=== PATIENT | male | born 1955 | race Caucasian/White ===

== ENCOUNTER → 2017-04-22 | Outpatient (CLI) | payer MEDICAID ==
--- NOTE | 2017-04-22 12:35 | RADIOLOGY REPORT (SQ) ---
EXAM DESCRIPTION: U/S RETROPERITON (RENAL/AORTA) COMPLETED DATE/TIME: 04/22/2017 10:12 am REASON FOR STUDY: RENAL COLIC (N23) N23 UNSPECIFIED RENAL COLIC COMPARISON: None. TECHNIQUE: Dynamic and static grayscale images acquired of the kidneys and bladder and recorded on P ACS. Additional selected color Doppler and spectral images recorded. LIMITATIONS: None. FINDINGS: RIGHT KIDNEY: Normal size, 11.9 cm. Normal echogenicity. No solid or suspicious masses. T here is a 3 cm cyst. No hydronephrosis. No calcifications. LEFT KIDNEY: Normal size, 12.6 cm. Normal echogenicity. No solid or suspicious masses. No hydronephr osis. No calcifications. BLADDER: The urinary bladder shows nodular protrusion of the prostate gland into the base. The prost ate gland is enlarged. Ureteral jets were seen. OTHER FINDINGS: No other significant finding. IMPRESSION: 1. Normal kidneys. 2. There is nodular protrusion of the prostate gland into the base of the bladder. The prostate gla nd is enlarged. TECHNICAL DOCUMENTATION: JOB ID: [id number]- All Rights Reserved
== END ==
LOC: RAD 09:44
PROVIDERS: ATTEND Internal Medicine
DX: N23 Unspecified renal colic (principal)
CPT/HCPCS: 76770

== ENCOUNTER → 2017-06-18 | Outpatient (CLI) | payer MEDICAID ==
--- NOTE | 2017-06-18 13:04 | RADIOLOGY REPORT (SQ) ---
EXAM DESCRIPTION: RIBS LEFT W/PA CHEST COMPLETED DATE/TIME: 06/18/2017 12:52 pm REASON FOR STUDY: CHEST PAIN, UNSPECIFIED R07.9 CHEST PAIN, UNSPECIFIED COMPARISON: CT chest 03/02/2010, 02/12/2016 Chest films 07/04/2013, 10/20/2008 TECHNIQUE: Frontal view of the chest and additional views of the left ribs acquired. NUMBER OF VIEWS: PA chest, left rib detail five views LIMITATIONS: None. FINDINGS: FRONTAL CXR: Bibasilar bandlike atelectasis. No fluffy alveolar infiltrates worrisome for edema or pneumonia. No pleural effusion. No pneumothor ax. Mild cardiomegaly. RIBS: Chronic appearing left lateral 8th rib fracture. No acute displaced fractures are identified OTHER: No other significant finding. IMPRESSION: Bibasilar airspace disease likely atelectasis Chronic appearing left lateral 8th rib fracture No acute changes COMMENT: SITE OF TRAUMA/COMPLAINT MARKED/STAMP COMPLETED: Yes TECHNICAL DOCUMENTATION: JOB ID: [id number] [employer]- All Rights Reserved
== END ==
LOC: OD 11:34
PROVIDERS: ATTEND Internal Medicine
DX: R07.9 Chest pain, unspecified (principal); I51.7 Cardiomegaly

== ENCOUNTER 2017-08-11 01:53 | Inpatient (IN) | payer MEDICAID ==
[2017-08-11] MEDS ORDERED: FENTANYL CITRATE INJ/PF 100 MCG/2 ML AMPUL IV ONE (02:12)
--- NOTE | 2017-08-11 02:14 | ER Document Report ---
ED Fall - General Mode of Arrival: Medic Information source: Patient TRAVEL OUTSIDE OF THE [place] IN LAST 30 DAYS: No <TIARA GILLIAM - Last Filed: 08/11/17 06:29> <AIDAN HOLBROOK - Last Filed: 08/11/17 07:20> - General Chief Complaint: Hip Pain Stated Complaint: FALL/HIP PAIN Time Seen by Provider: 08/11/17 01:58 Notes: Patient is a 62 year old male with a history of diabetes, and depression presents to the emergency department from [facility] complaining of left hip and shoulder pain secondary to a mechanical fall. EMS states [facility] mopped the floors when the patient slipped on his way to the bathroom. EMS reports the fall was witnessed and the patient fell on his left shoulder and hip without hitting his head. Patient states his hip pain is a 10/ 10. EMS gave the patient 100 mg of Fentanyl prior to arrival to the emergency department. (TIARA GILLIAM) - Related data Allergies/Adverse Reactions: moxifloxacin HCl [From Avelox] Allergy (Verified 06/19/11 14:14) Past Medical History - General Information source: Patient - Social History Smoking Status: Current Every Day Smoker Cigarette use (# per day): Yes - 1/2 pack a day Family History: None - Past Medical History Cardiac Medical History: Reports: Hx Hypertension Endocrine Medical History: Reports: Hx Diabetes Mellitus Type 2 Psychiatric Medical History: Reports: Hx Bipolar Disorder, Hx Depression, Hx Schizophrenia - Immunizations Hx Diphtheria, Pertussis, Tetanus Vaccination: Yes Hx Pneumococcal Vaccination: 07/07/09 <TIARA GILLIAM - Last Filed: 08/11/17 06:29> Review of Systems - Review of Systems Constitutional: No symptoms reported EENT: No symptoms reported Cardiovascular: No symptoms reported Respiratory: No symptoms reported Gastrointestinal: No symptoms reported Genitourinary: No symptoms reported Male Genitourinary: No symptoms reported Musculoskeletal: See HPI Skin: No symptoms reported Hematologic/Lymphatic: No symptoms reported Neurological/Psychological: No symptoms reported -: Yes All other systems reviewed and negative <TIARA IGLLIAM - Last Filed: 08/11/17 06:29> Physical Exam <TIARA GILLIAM - Last Filed: 08/11/17 06:29> <AIDAN HOLBROOK - Last Filed: 08/11/17 07:20> - Vital signs Vitals: Temp Pulse Resp BP Pulse Ox 97.5 F 68 22 H 143/67 H 90 L 08/11/17 02:03 08/11/17 02:03 08/11/17 02:03 08/11/17 02:03 08/11/17 02:03 - Notes Notes: GENERAL: Alert, interacts well. No acute distress. HEAD: Normocephalic, atraumatic. EYES: Pupils equal, round, and reactive to light. Extraocular movements intact. ENT: Oral mucosa moist, tongue midline. NECK: Full range of motion. Supple. Trachea midline. LUNGS: Clear to auscultation bilaterally, no wheezes, rales, or rhonchi. No respiratory distress. HEART: Regular rate and rhythm. No murmurs, gallops, or rubs. ABDOMEN: Soft, non-tender. Non-distended. Bowel sounds present in all 4 quadrants. Easily reducible umbilical hernia. EXTREMITIES: Decreased sensations over left herald's patch. Superficial abrasion on left elbow, no deformities. Normal sensations of the BLE. Diffusely tender to the left femur, worsened on the proximal aspect. Radial and dorsalis pedis pulses 2/4 bilaterally. NEUROLOGICAL: Alert and oriented x3. Normal speech. PSYCH: Normal affect, normal mood. SKIN: Warm, dry, normal turgor. (TIARA GILLIAM) Course - Laboratory Result Diagrams: 08/11/17 01:40 08/11/17 01:40 - Consults VERONIQUE Aguilar Time consulted: 03:43 - VERONIQUE Aguilar reccommends the patient's PCP, Dr. Wilson , admits patinet due to the patient being diabetic. Dr. Winchester Time consulted: 03:45 - Dr. Winchester accepts patient on behalf of Dr. Wilson <TIARA GILLIAM - Last Filed: 08/11/17 06:29> - Laboratory Result Diagrams: 08/11/17 01:40 08/11/17 01:40 <AIDAN HOLBROOK - Last Filed: 08/11/17 07:20> - Re-evaluation Re-evalutation: 08/11/17 03:46 X-rays reveal displaced spiral left femur fracture extending through the lesser trochanter, also reveals a mildly displaced mildly comminuted left glenoid fracture. Chest x-ray does not show any broken ribs. 08/11/17 03:47 It does show mild cardiomegaly, mild bibasilar atelectasis and small left pleural effusion. CBC shows slight leukocytosis 11.1, coags normal, CMP shows elevated glucose of 171 consistent with his history of diabetes. Initial EKG showed slight ST segment elevations in the anterior leads without any reciprocal changes, it is actually more consistent with early repolarization consistent with LVH. Repeat EKG is improved. Patient is having no cardiac symptoms, no chest pain. Discussed case with Ms. Tran PIPER who works with orthopedic surgery, states that given his comorbidities she would prefer he was admitted through his primary care physician. I spoke with Dr. Winchester who is covering for Dr. Pena. He accepts the patient to Dr. Pena service. Patient will be evaluated for surgery later today. (AIDAN HOLBROOK) - Vital Signs Vital signs: Temp Pulse Resp BP Pulse Ox 97.5 F 63 16 146/67 H 92 08/11/17 02:03 08/11/17 05:32 08/11/17 05:32 08/11/17 05:32 08/11/17 05:32 - Laboratory Laboratory results interpreted by me: 08/11/17 08/11/17 01:40 01:40 WBC 11.1 H Glucose 171 H AST 13 L Total Protein 5.6 L - EKG Interpretation by Me Additional EKG results interpreted by me: 08/11/17 03:49 Initial EKG shows sinus rhythm at a rate of 65, normal axis, normal intervals, no ST segment depressions, isolated T-wave inversions in lead III, there are ST segment elevations noted in V3 through V6, this is more consistent with early repolarization with J-point elevation than a STEMI. There are no reciprocal changes. Per my interpretation. Repeat EKG shows sinus rhythm at a rate of 74, minimal ST segment elevation remains in V3 and V4, it has resolved in V5 and V6, no T-wave inversions, no reciprocal changes, left ventricular hypertrophy is noted, normal axis and normal intervals per my interpretation. (AIDAN HOLBROOK) Discharge <TIARA GILLIAM - Last Filed: 08/11/17 06:29> - Discharge Admitting Provider: [facility] Admitted: Medical Floor <AIDAN HOLBROOK - Last Filed: 08/11/17 07:20> - Discharge Clinical Impression: Left femoral shaft fracture Qualifiers: Encounter type: initial encounter Fracture type: closed Fracture morphology: spiral Fracture alignment: displaced Qualified Code(s): S72.342A - Displaced spiral fracture of shaft of left femur, initial encounter for closed fracture Closed fracture of glenoid cavity of left scapula Qualifiers: Encounter type: initial encounter Fracture alignment: displaced Qualified Code( s): S42.142A - Displaced fracture of glenoid cavity of scapula, left shoulder, initial encounter for closed fracture Hypertension Qualifiers: Hypertension type: essential hypertension Qualified Code(s): I10 - Essential ( primary) hypertension Obesity Qualifiers: Obesity type: due to excess calories Obesity classification: adult class 3 ( BMI >= 40) Serious obesity comorbidity presence: with serious comorbidity Body mass index: BMI 40.0-44.9 Qualified Code(s): E66.01 - Morbid (severe) obesity due to excess calories Condition: Stable Disposition: ADMITTED INPATIENT Scribe Attestation: 08/11/17 07:20 I personally performed the services described in the documentation, reviewed and edited the documentation which was dictated to the scribe in my presence, and it accurately records my words and actions. (AIDAN HOLBROOK) Scribe Documentation - Scribe Written by Gordonibe:: Ricardo Hurley, 08/11/2017 02:15 acting as scribe for :: Gila <TIARA GILLIAM - Last Filed: 08/11/17 06:29>
[2017-08-11 02:16] LABS: ABSOLUTE EOSINOPHILS # (AUTO) 0.2 10^3/uL (0.0-0.6); ABSOLUTE LYMPHOCYTES (AUTO) 4.1 10^3/uL (0.5-4.7); ABSOLUTE MONOCYTES (AUTO) 0.9 10^3/uL (0.1-1.4); ABSOLUTE NEUT (AUTO) 5.8 10^3/uL (1.7-8.2); BASOPHILS % (AUTO) 0.3 % (0-2); EOSINOPHILS % (AUTO) 1.9 % (0-6); HEMOGLOBIN 14.9 g/dL (13.5-17.0); LYMPHOCYTES % (AUTO) 36.9 % (13-45); MEAN CORPUSCULAR HEMOGLOBIN 29.9 pg (27.0-33.4); MEAN CORPUSCULAR HGB CONC 33.2 g/dL (32.0-36.0); MEAN CORPUSCULAR VOLUME 90 fl (80-97); MONOCYTES % (AUTO) 8.2 % (3-13); PLATELET COUNT 245 10^3/uL (150-450); RED CELL DISTRIBUTION WIDTH 13.9 % (11.5-14.0); SEGMENTED NEUTROPHILS % (AUTO) 52.7 % (42-78); TOTAL CELLS COUNTED % (AUTO) 100 %; WHITE BLOOD COUNT 11.1 10^3/uL (4.0-10.5)
[2017-08-11 02:30] LABS: ALANINE AMINOTRANSFERASE 34 U/L (21-72); ALBUMIN 4.1 g/dL (3.5-5.0); ALKALINE PHOSPHATASE 78 U/L (38-126); ANION GAP 13 (5-19); ASPARTATE AMINO TRANSFERASE 13 U/L (17-59); BILIRUBIN,DIRECT 0.4 mg/dL (0.0-0.4); BILIRUBIN,TOTAL 0.5 mg/dL (0.2-1.3); BLOOD UREA NITROGEN 16 mg/dL (7-20); CALCIUM 9.1 mg/dL (8.4-10.2); CARBON DIOXIDE 26 mmol/L (22-30); CHLORIDE 103 mmol/L (98-107); GLUCOSE 171 mg/dL (75-110); POTASSIUM 4.5 mmol/L (3.6-5.0); SODIUM 142.2 mmol/L (137-145); TOTAL PROTEIN 5.6 g/dL (6.3-8.2)
[2017-08-11 02:32] LABS: INTERNATIONAL RATION (INR) 0.89; PROTHROMBIN TIME 12.7 SEC (11.4-15.4)
--- NOTE | 2017-08-11 03:23 | RADIOLOGY REPORT (SQ) ---
EXAM DESCRIPTION: CHEST SINGLE VIEW COMPLETED DATE/TIME: 08/11/2017 3:12 am REASON FOR STUDY: fall, L hip pain, L shoulder pain COMPARISON: Chest x-ray 07/04/2013 EXAM PARAMETERS: NUMBER OF VIEWS: One view. TECHNIQUE: Single frontal radiographic view of the chest acquired. RADIATION DOSE: NA LIMITATIONS: None. FINDINGS: LUNGS AND PLEURA: Mild bibasilar atelectasis. There is blunting of the left costophrenic angle suggestive of a small pleural effusion. No pneumothorax. MEDIASTINUM AND HILAR STRUCTURES: No masses. Contour normal. HEART AND VASCULAR STRUCTURES: The heart is mildly enlarged. No overt vascular congestion. BONES: Degenerative changes in the spine. HARDWARE: None in the chest. IMPRESSION: Mild cardiomegaly. Mild bibasilar atelectasis. Small left pleural effusion. TECHNICAL DOCUMENTATION: JOB ID: [id number] OH-[id number] 2010 [employer]- All Rights Reserved
--- NOTE | 2017-08-11 03:30 | RADIOLOGY REPORT (SQ) ---
EXAM DESCRIPTION: HIP LEFT AP/LATERAL; FEMUR LEFT COMPLETED DATE/TIME: 08/11/2017 3:12 am REASON FOR STUDY: fall, L hip pain, L shoulder pain; hip and femur fracture. The patient fell this morning. COMPARISON: None. NUMBER OF VIEWS: Four views. TECHNIQUE: AP pelvis and frog-leg view of the left hip. Two views of the left femur. LIMITATIONS: None. FINDINGS: There is a displaced spiral fracture at the proximal left femoral shaft extending through the lesser trochanter. No acute fracture is seen at the pelvis or the visualized right hip. IMPRESSION: Displaced, spiral fracture at the proximal left femur extending through the lesser troch anter. TECHNICAL DOCUMENTATION: JOB ID: [id number] OH-[id number] 2010 [employer]- All Rights Reserved
--- NOTE | 2017-08-11 03:30 | RADIOLOGY REPORT (SQ) ---
EXAM DESCRIPTION: HIP LEFT AP/LATERAL; FEMUR LEFT COMPLETED DATE/TIME: 08/11/2017 3:12 am REASON FOR STUDY: fall, L hip pain, L shoulder pain; hip and femur fracture. The patient fell this morning. COMPARISON: None. NUMBER OF VIEWS: Four views. TECHNIQUE: AP pelvis and frog-leg view of the left hip. Two views of the left femur. LIMITATIONS: None. FINDINGS: There is a displaced spiral fracture at the proximal left femoral shaft extending through the lesser trochanter. No acute fracture is seen at the pelvis or the visualized right hip. IMPRESSION: Displaced, spiral fracture at the proximal left femur extending through the lesser troch anter. TECHNICAL DOCUMENTATION: JOB ID: [id number] OH-[id number] 2010 [employer]- All Rights Reserved
[2017-08-11] MEDS ORDERED: HYDROMORPHONE HCL INJ/PF 2 MG/ML AMPULE IV ONE ×2 (03:35→05:09)
--- NOTE | 2017-08-11 03:35 | RADIOLOGY REPORT (SQ) ---
EXAM DESCRIPTION: SHOULDER LEFT 2 OR MORE VIEWS COMPLETED DATE/TIME: 08/11/2017 3:12 am REASON FOR STUDY: fall, L hip pain, L shoulder pain COMPARISON: None. NUMBER OF VIEWS: Two views. TECHNIQUE: Internal and external rotation images acquired of the left shoulder. The patient refused Y-view of the shoulder. LIMITATIONS: None. FINDINGS: MINERALIZATION: Normal. BONES: There is a mildly comminuted, mildly displaced, intra-articular fracture at the left glenoid. Degenerative changes at the acromioclavicular joint. No acute fracture or dislocation is seen at th e proximal left humerus. JOINTS: No dislocation. VISUALIZED LUNGS AND RIBS: No pneumothorax. No displaced rib fracture. SOFT TISSUES: No radiopaque foreign body. IMPRESSION: Mildly displaced intra-articular fracture at the left glenoid. TECHNICAL DOCUMENTATION: JOB ID: [id number] OH-[id number] 2010 [employer]- All Rights Reserved
[2017-08-11] MEDS ORDERED: DEXTROSE 50%-WATER 25 GM/50 ML DISP.SYRIN IV PRN ×4 (04:27→04:31)
[2017-08-11] MEDS ORDERED: ONDANSETRON HCL INJ/PF 4 MG/2 ML SDV IV PRN (04:27)
[2017-08-11] MEDS ORDERED: DEXTROSE 40% GEL 15 GM TUBE PO PRN ×4 (04:27→04:31)
[2017-08-11] MEDS ORDERED: GLUCAGON,HUMAN RECOMB 1 MG INJ SUBCUT PRN (04:27)
[2017-08-11] MEDS ORDERED: ACETAMINOPHEN 325 MG TABLET PO PRN (04:27)
[2017-08-11] MEDS ORDERED: GLUCAGON,HUMAN RECOMB 1 MG INJ IM PRN (04:31)
--- NOTE | 2017-08-11 06:28 | EKG REPORT ---
SEVERITY:- OTHERWISE NORMAL ECG - SINUS RHYTHM MINIMAL ST ELEVATION, ANTERIOR LEADS : Confirmed by: Jourdan White MD 11-Aug-2017 06:27:45
--- NOTE | 2017-08-11 06:28 | EKG REPORT ---
SEVERITY:- NORMAL ECG - SINUS RHYTHM : Confirmed by: Jourdan White MD 11-Aug-2017 06:27:34
--- NOTE | 2017-08-11 06:29 | PDOC CONSULTATION ---
Consultation Consult Date: 08/11/17 Consult reason:: Left hip fracture. Left shoulder fracture History of Present Illness Admission Date/PCP: 08/11/17 04:16 PEMA ARMSTRONG MD History of Present Illness: FLORY DUNN JR is a 62 year old male resident of the [facility] who fell on a wet floor and sustained a left shoulder injury and left hip injury. Is brought to the emergency room and a left glenoid fracture as well as a left subtrochanteric femur fracture were identified. Orthopedics is consulted for fracture management. Past Medical History Cardiac Medical History: Reports: Hypertension, Other - Cardiomegaly Endocrine Medical History: Reports: Diabetes Mellitus Type 2 Psychiatric Medical History: Reports: Bipolar Disorder, Depression Past Surgical History Past Surgical History: Reports: None Social History Information Source: Patient, [facility] Records Lives with: [facility] Smoking Status: Current Every Day Smoker Hx Recreational Drug Use: No Hx Prescription Drug Abuse: No Family History Family History: None Parental Family History Reviewed: No Children Family History Reviewed: No Sibling(s) Family History Reviewed.: No Medication/Allergy Home Medications: Glipizide 06/19/11 Olmesartan Medoxomil [Benicar] 0 mg PO 06/19/11 Pioglitazone HCl [Actos] 0 mg PO 06/19/11 Sitagliptin Phosphate [Januvia] 0 mg PO 06/19/11 Prednisone [Deltasone 20 mg Tablet] 3 tab PO DAILY 5 Days tablet 02/12/16 Allergies/Adverse Reactions: moxifloxacin HCl [From Avelox] Allergy (Verified 06/19/11 14:14) Review of Systems All systems: as per H Physical Exam Vital Signs: Temp Pulse Resp BP Pulse Ox 36.4 C 63 16 146/67 H 92 08/11/17 02:03 08/11/17 05:32 08/11/17 05:32 08/11/17 05:32 08/11/17 05:32 Physical Exam: Overweight middle-aged white male lying in [facility]. Patient's alert oriented and appropriate. General appearance: PRESENT: no acute distress, obese Head exam: PRESENT: normocephalic Respiratory exam: PRESENT: unlabored Cardiovascular exam: PRESENT: RRR Pulses: PRESENT: +1 pedal pulses bilateral Vascular exam: PRESENT: normal capillary refill GI/Abdominal exam: PRESENT: soft Rectal exam: PRESENT: deferred Extremities exam: PRESENT: other - Left shoulder tender to palpation. Limited active range of motion secondary to pain. There is no skin abnormalities. Left lower extremity is externally rotated such that the left ankle underlies the right knee. Distal neurovascular examination is intact. Neurological exam: PRESENT: alert, awake, oriented to person, oriented to place , oriented to time, oriented to situation. ABSENT: motor sensory deficit Psychiatric exam: PRESENT: appropriate affect, normal mood. ABSENT: homicidal ideation, suicidal ideation Skin exam: PRESENT: dry, intact, warm. ABSENT: cyanosis, rash Results Impressions: Chest X-Ray 08/11/17 02:07 IMPRESSION: Mild cardiomegaly. Mild bibasilar atelectasis. Small left pleural effusion. Hip X-Ray 08/11/17 02:07 IMPRESSION: Displaced, spiral fracture at the proximal left femur extending through the lesser trochanter. Shoulder X-Ray 08/11/17 02:07 IMPRESSION: Mildly displaced intra-articular fracture at the left glenoid. Femur X-Ray 08/11/17 02:55 IMPRESSION: Displaced, spiral fracture at the proximal left femur extending through the lesser trochanter. Status: Imported from PACS Assessment & Plan - Diagnosis (1) Cardiomegaly Is this a current diagnosis for this admission?: Yes Plan: Cardiology consult requested (2) Closed fracture of glenoid cavity of left scapula Qualifiers: Encounter type: initial encounter Fracture alignment: displaced Qualified Code(s): S42.142A - Displaced fracture of glenoid cavity of scapula, left shoulder, initial encounter for closed fracture Is this a current diagnosis for this admission?: Yes Plan: This fracture can be treated nonoperatively but will interfere with the patient' s ability to mobilize status post treatment of the femur fracture. (3) Left femoral shaft fracture Qualifiers: Encounter type: initial encounter Fracture type: closed Fracture morphology: spiral Fracture alignment: displaced Qualified Code(s): S72.342A - Displaced spiral fracture of shaft of left femur, initial encounter for closed fracture Is this a current diagnosis for this admission?: Yes Plan: Plan for an open reduction internal fixation left femur fracture pending medical clearance, cardiac clearance, and or availability. - Time Time Spent: 50 to 70 Minutes Anticipated discharge: Other Within: Other
[2017-08-11] MEDS ORDERED: HEPARIN SOD (PORCINE) 5,000 UNIT/ML 1 ML SYRINGE ONE (07:00)
[2017-08-11] MEDS: NORMAL SALINE 1000 ML 1,000 ML IV PRN ×2 (07:47→22:51)
[2017-08-11] MEDS: HEPARIN SOD (PORCINE) 5,000 UNIT/ML 1 ML SYRINGE SUBCUT SCH ×3 (07:49→22:50)
[2017-08-11] MEDS: FAMOTIDINE INJ/PF 20 MG/2 ML SDV IV SCH ×2 (09:54→22:51)
[2017-08-11] MEDS: OXYCODONE-ACETAMINOPHEN 5-325 MG TABLET PO PRN ×2 (10:17→20:52)
[2017-08-11] MEDS: DOCUSATE SODIUM 100 MG CAPSULE PO SCH ×2 (10:17→17:54)
--- NOTE | 2017-08-11 12:49 | PDOC CONSULTATION ---
Consultation Consult Date: 08/11/17 Attending physician:: KENN JEAN Consult reason:: Preop cardiovascular evaluation History of Present Illness Admission Date/PCP: 08/11/17 04:16 PEMA ARMSTRONG MD Patient complains of: Left shoulder and left hip pain History of Present Illness: FLORY DUNN JR is a 62 year old male resident who fell on a wet floor and sustained a left shoulder injury and left hip injury. Is brought to the emergency room and a left glenoid fracture as well as a left subtrochanteric femur fracture were identified. Orthopedics is consulted for fracture management. Patient denied any previous cardiac issues. Patient denied any ongoing chest pain or shortness of breath. Twelve-lead EKG reviewed showed sinus rhythm without any acute ST-T wave changes. Patient claims that he is physically inactive however. Past Medical History Cardiac Medical History: Reports: Hypertension, Other - Cardiomegaly Endocrine Medical History: Reports: Diabetes Mellitus Type 2 Psychiatric Medical History: Reports: Bipolar Disorder, Depression Past Surgical History Past Surgical History: Reports: None Social History Information Source: Patient Lives with: [facility] Smoking Status: Current Every Day Smoker Frequency of Alcohol Use: None Hx Recreational Drug Use: No Drugs: None Hx Prescription Drug Abuse: No - Advance Directive Resuscitation Status: Full Code Surrogate healthcare decision maker:: Patient's brother is surrogate decision-maker Family History Family History: Hypertension Parental Family History Reviewed: Yes Children Family History Reviewed: Yes Sibling(s) Family History Reviewed.: Yes Medication/Allergy Home Medications: Aripiprazole [Abilify 5 mg Tablet] 5 mg PO DAILY 08/11/17 Allergies/Adverse Reactions: moxifloxacin HCl [From Avelox] Allergy (Verified 06/19/11 14:14) Review of Systems Review of Systems: Please see history of present illness and past medical history as wall. Constitutional: No fever or chills reported. Head : No recent chronic headaches, recent head injury. Eyes: No recent eye pain, diplopia, redness, discharge, acute visual changes. Ears: No recent chronic ear pain, acute hearing loss, ear discharge. Oral cavity: No recent ulcerations, bleeding, oral cavity discomfort. Neck: No recent acute neck pain reported. Hematologic: No recent easy bruising or bleeding or hematologic malignancy reported. Lymphatic: No recent lymphatic malignancy, chronic lymphadenopathy reported yet Cardiovascular system review: See history of present illness. Respiratory system review: No recent chronic cough, hemoptysis, blood clots in the lungs reported. Mild Shortness of breath on exertion Gastrointestinal system review: Negative for any recent acute or chronic abdominal pain, hematemesis, melena, recent change in bowel habits. Genitourinary system review: No recent acute or chronic hematuria, flank pain, UTI etc. reported. Skin system review: Negative for any recent abnormal bruising, no rash, no pruritus reported. Neurologic: No prior history of strokes, mini strokes, seizure disorder. Psychologic: Patient has a history of mood disorder and currently on medications for that. Musculoskeletal: Minor aches and pains reported. No acute joint swelling reported. Endocrine: No recent polyuria, polydipsia, recent heat or cold intolerance. Physical Exam Vital Signs: Temp Pulse Resp BP Pulse Ox 98.0 F 88 20 151/85 H 92 08/11/17 12:11 08/11/17 12:11 08/11/17 12:11 08/11/17 12:11 08/11/17 12:11 Intake & Output 08/10/17 08/11/17 08/12/17 06:59 06:59 06:59 Weight 108.862 kg Exam: GENERAL: well-nourished and in no acute distress. Alert and oriented x3 HEAD: Atraumatic, normocephalic. EYES: Pupils equal round and reactive to light, extraocular movements intact, sclera anicteric, conjunctiva are normal. ENT: TMs normal, nares patent, oropharynx clear without exudates. Moist mucous membranes. No oral ulcerations or bleeding gums noted NECK: supple without lymphadenopathy. Trachea is central. No cervical or axillary lymphadenopathy noted. Carotids are 2+, JVD WNL LUNGS: Respiration seems nonlabored, no significant accessory muscle action noted. Breath sounds clear to auscultation bilaterally and equal noted. No wheezes rales or rhonchi noted. No significant dullness noted on percussion. CHEST: Palpation of the chest wall shows no significant chest wall tenderness. No other significant abnormalities noted. HEART: [employer], No PSH, 1/6 MELANY aortic area, 1/6 bran systolic murmur mitral area, no rubs, no gallops. ABDOMEN: Soft, no significant tenderness appreciated, normoactive bowel sounds. No guarding, no rebound. No rigidity noted . No masses appreciated. EXTREMITIES: Pedal pulses are 1-2+, no calf tenderness noted. No clubbing or cyanosis.trace to 1+ pedal edema noted NEUROLOGICAL: Focused neurological exam showed no significant neurologic deficit. Normal speech, no focal weakness appreciated, muscle strength not checked in the left upper and lower extremity due to recent fracture.. PSYCH: Normal mood, normal affect. Judgment and insight within normal limits. SKIN: No significant ecchymosis, rash, ulcerations or signs of pruritus noted. MUSCULOSKELETAL EXAM: No significant joint swelling noted. Painful movements of left shoulder and left hip. A full musculoskeletal exam was not performed. Results EKG Comments: Shows sinus rhythm without any sustained tacky or bradycardia arrhythmias. Impressions: Chest X-Ray 08/11/17 02:07 IMPRESSION: Mild cardiomegaly. Mild bibasilar atelectasis. Small left pleural effusion. Hip X-Ray 08/11/17 02:07 IMPRESSION: Displaced, spiral fracture at the proximal left femur extending through the lesser trochanter. Shoulder X-Ray 08/11/17 02:07 IMPRESSION: Mildly displaced intra-articular fracture at the left glenoid. Femur X-Ray 08/11/17 02:55 IMPRESSION: Displaced, spiral fracture at the proximal left femur extending through the lesser trochanter. Assessment & Plan - Diagnosis (1) Preoperative cardiovascular examination Is this a current diagnosis for this admission?: Yes (2) Cardiomegaly Is this a current diagnosis for this admission?: Yes (3) Closed fracture of glenoid cavity of left scapula Qualifiers: Encounter type: initial encounter Fracture alignment: displaced Qualified Code(s): S42.142A - Displaced fracture of glenoid cavity of scapula, left shoulder, initial encounter for closed fracture Is this a current diagnosis for this admission?: Yes (4) Hypertension Qualifiers: Hypertension type: essential hypertension Qualified Code(s): I10 - Essential (primary) hypertension Is this a current diagnosis for this admission?: Yes (5) Left femoral shaft fracture Qualifiers: Encounter type: initial encounter Fracture type: closed Fracture morphology: spiral Fracture alignment: displaced Qualified Code(s): S72.342A - Displaced spiral fracture of shaft of left femur, initial encounter for closed fracture Is this a current diagnosis for this admission?: Yes (6) Obesity Qualifiers: Obesity type: due to excess calories Obesity classification: adult class 3 (BMI >= 40) Serious obesity comorbidity presence: with serious comorbidity Body mass index: BMI 40.0-44.9 Qualified Code(s): E66.01 - Morbid (severe) obesity due to excess calories; Z68.41 - Body mass index (BMI) 40.0-44.9, adult ; Z68.41 - Body mass index (BMI) 40.0-44.9, adult; Z68.41 - Body mass index (BMI ) 40.0-44.9, adult; Z68.41 - Body mass index (BMI) 40.0-44.9, adult - Notes Notes: Patient seen for preop cardiovascular evaluation. Patient seemed to be maintaining sinus rhythm. Currently without any chest pain, angina or angina equivalent symptoms. Patient noted to have cardiomegaly but no CHF clinically or by radiographic criteria. At this point patient cleared for orthopedic surgery if needed to take care of his immediate problem. Recommend good pain control, DVT prophylaxis, pulmonary toilet etc. Cardiomegaly: Possibly related to LVH but patient may have depressed LVEF. Will order a 2D echo. Hypertension: Recommend blood pressure goal of 140/90 or less. Obesity: This could be managed as an outpatient. - Time Time Spent: 30 to 50 Minutes - CODE STATUS was discussed, patient remains full code. Surrogate decision-maker unchanged. Multiple medical problems were addressed. More than 50% of the time spent coordinating care, discussing management plans with involved caregivers. Management plans discussed with involved personnels. Medical decision making was of moderate to high complexity , patient's has multiple comorbidities. Medications reviewed and adjusted accordingly: Yes
[2017-08-11] MEDS: HYDROMORPHONE HCL INJ/PF 2 MG/ML AMPULE IV PRN ×2 (13:08→18:20)
[2017-08-11] MEDS ORDERED: CALCIUM CARBONATE 500 MG TAB.CHEW PO PRN (22:41)
[2017-08-11] MEDS ORDERED: GUAIFENESIN/D-METHORPHAN (200-20 MG) SYRUP 10 ML PO PRN (22:41)
[2017-08-11] MEDS ORDERED: ALPRAZOLAM 0.5 MG TABLET PO PRN (22:41)
[2017-08-11] MEDS ORDERED: CHLORPHENIRAMINE MALEATE 4 MG TABLET PO PRN (22:41)
--- NOTE | 2017-08-11 22:41 | PDOC H&P ---
History of Present Illness Admission Date/PCP: 08/11/17 04:16 PEMA ARMSTRONG MD History of Present Illness: Patient is a 62-year-old male resident of assisted living facility at [facility] he said that the floor was wet, he slipped on the wet floor and sustained fracture of the left shoulder on the left femur. There was no antecedent chest pain, shortness of breath syncope or loss of consciousness. Based on the revised cardiac risk index score, he has no CVA, he has no coronary artery disease, he has no CHF, he has no diabetes mellitus requiring insulin, he has no chronic kidney disease with serum creatinine more than 2, this suggests that the risk of cardiovascular event in the perioperative is low, Patient can proceed to surgery Past Medical History Cardiac Medical History: Reports: Hypertension, Other - Cardiomegaly Endocrine Medical History: Reports: Diabetes Mellitus Type 2 Psychiatric Medical History: Reports: Bipolar Disorder, Depression Past Surgical History Past Surgical History: Reports: None Social History Lives with: [facility] Smoking Status: Current Every Day Smoker Frequency of Alcohol Use: None Hx Recreational Drug Use: No Drugs: None Hx Prescription Drug Abuse: No - Advance Directive Resuscitation Status: Full Code Family History Family History: Hypertension Parental Family History Reviewed: Yes Children Family History Reviewed: Yes Sibling(s) Family History Reviewed.: Yes Medication/Allergy Home Medications: Acetaminophen [Tylenol 325 mg Tablet] 650 mg PO Q4HP PRN 08/11/17 Alprazolam [Xanax 0.5 mg Tablet] 0.5 mg PO Q8HP PRN 08/11/17 Aripiprazole [Abilify 5 mg Tablet] 5 mg PO DAILY 08/11/17 Atorvastatin Calcium [Lipitor 40 mg Tablet] 40 mg PO DAILY 08/11/17 Bupropion HCl [Bupropion Xl] 150 mg PO DAILY 08/11/17 Calcium Carbonate [Tums Chewable 500 mg Tab.chew] 1,000 mg PO Q1HP PRN 08/11/17 Chlorpheniramine Maleate [Chlor-Trimeton 4 mg Tablet] 4 mg PO Q6HP PRN 08/11/17 Glipizide [Glucotrol 5 mg Tablet] 5 mg PO BID 08/11/17 Guaifenesin/Dextromethorphan [Tussin Dm Liquid] 10 ml PO Q4HP PRN 08/11/17 Insulin Glargine,Hum.rec.anlog [Lantus Solostar] 15 unit SQ QHS 08/11/17 Lisinopril [Prinivil 40 mg Tablet] 40 mg PO DAILY 08/11/17 Metformin HCl [Glucophage] 1,000 mg PO BID 08/11/17 Pioglitazone HCl [Actos 15 mg Tablet] 15 mg PO BID 08/11/17 Trazodone HCl [Desyrel] 100 mg PO HSP PRN 08/11/17 Allergies/Adverse Reactions: moxifloxacin HCl [From Avelox] Allergy (Verified 06/19/11 14:14) Review of Systems Constitutional: ABSENT: chills, fever(s), headache(s), weight gain, weight loss Eyes: ABSENT: visual disturbances Ears: ABSENT: hearing changes Cardiovascular: ABSENT: chest pain, dyspnea on exertion, edema, orthropnea, palpitations Respiratory: ABSENT: cough, hemoptysis Gastrointestinal: ABSENT: abdominal pain, constipation, diarrhea, hematemesis, hematochezia, nausea, vomiting Genitourinary: ABSENT: dysuria, hematuria Musculoskeletal: PRESENT: back pain, joint swelling Integumentary: ABSENT: rash, wounds Neurological: ABSENT: abnormal gait, abnormal speech, confusion, dizziness, focal weakness, syncope Psychiatric: ABSENT: anxiety, depression, homidical ideation, suicidal ideation Endocrine: ABSENT: cold intolerance, heat intolerance, menstrual abnormalities, polydipsia, polyuria Hematologic/Lymphatic: ABSENT: easy bleeding, easy bruising, lymphadenopathy Physical Exam Vital Signs: Temp Pulse Resp BP Pulse Ox 98.1 F 90 18 155/77 H 92 08/11/17 20:00 08/11/17 20:00 08/11/17 20:00 08/11/17 20:00 08/11/17 20:00 Intake & Output 08/10/17 08/11/17 08/12/17 06:59 06:59 06:59 Intake Total 250 Output Total 200 Balance 50 Weight 108.862 kg 110.8 kg General appearance: PRESENT: no acute distress, well-developed, well-nourished Head exam: PRESENT: atraumatic, normocephalic Eye exam: PRESENT: conjunctiva pink, EOMI, PERRLA Ear exam: PRESENT: normal external ear exam Mouth exam: PRESENT: moist, tongue midline Neck exam: PRESENT: full ROM Respiratory exam: PRESENT: clear to auscultation evan Cardiovascular exam: PRESENT: RRR, +S1, +S2 Pulses: PRESENT: normal dorsalis pedis pul, +2 pedal pulses bilateral Vascular exam: PRESENT: normal capillary refill GI/Abdominal exam: PRESENT: normal bowel sounds, soft Rectal exam: PRESENT: deferred Musculoskeletal exam: PRESENT: deformity, tenderness Neurological exam: PRESENT: alert, awake, oriented to person, oriented to place , oriented to time, oriented to situation, CN II-XII grossly intact Psychiatric exam: PRESENT: appropriate affect, normal mood Skin exam: PRESENT: dry, intact, warm. ABSENT: cyanosis, rash Results Impressions: Chest X-Ray 08/11/17 02:07 IMPRESSION: Mild cardiomegaly. Mild bibasilar atelectasis. Small left pleural effusion. Hip X-Ray 08/11/17 02:07 IMPRESSION: Displaced, spiral fracture at the proximal left femur extending through the lesser trochanter. Shoulder X-Ray 08/11/17 02:07 IMPRESSION: Mildly displaced intra-articular fracture at the left glenoid. Femur X-Ray 08/11/17 02:55 IMPRESSION: Displaced, spiral fracture at the proximal left femur extending through the lesser trochanter. Assessment & Plan - Diagnosis (1) Left femoral shaft fracture Qualifiers: Encounter type: initial encounter Fracture type: closed Fracture morphology: spiral Fracture alignment: displaced Qualified Code(s): S72.342A - Displaced spiral fracture of shaft of left femur, initial encounter for closed fracture Is this a current diagnosis for this admission?: Yes (2) Closed fracture of glenoid cavity of left scapula Qualifiers: Encounter type: initial encounter Fracture alignment: displaced Qualified Code(s): S42.142A - Displaced fracture of glenoid cavity of scapula, left shoulder, initial encounter for closed fracture Is this a current diagnosis for this admission?: Yes (3) Type 2 diabetes mellitus Qualifiers: Diabetes mellitus complication status: without complication (4) Hypertension Qualifiers: Hypertension type: essential hypertension Qualified Code(s): I10 - Essential (primary) hypertension Is this a current diagnosis for this admission?: Yes (5) Preoperative cardiovascular examination Is this a current diagnosis for this admission?: Yes Plan: Patient can proceed to surgery low CVS risk in the perioperative.period
[2017-08-11] MEDS ORDERED: (PENDING PHARMACY ID) (Bupropion Hcl [Bupropion Xl] 150 MG) PO SCH (22:45)
[2017-08-11] MEDS ORDERED: GLIPIZIDE 5 MG TABLET PO ONE (23:00)
[2017-08-11] MEDS ORDERED: ATORVASTATIN CALCIUM 40 MG TABLET PO ONE (23:00)
[2017-08-11] MEDS ORDERED: PIOGLITAZONE HCL 15 MG TABLET PO ONE (23:00)
[2017-08-11] MEDS ORDERED: ARIPIPRAZOLE 5 MG TABLET PO ONE (23:00)
[2017-08-11] MEDS ORDERED: INSULIN GLARGINE,HUM.REC.ANLOG 300 UNIT/3 ML INSULN.PEN SUBCUT ONE (23:00)
[2017-08-11] MEDS ORDERED: LISINOPRIL 10 MG TABLET PO ONE (23:00)
[2017-08-12] MEDS ORDERED: INSULIN GLARGINE,HUM.REC.ANLOG 1,000 UNIT/10 ML UNIT SUBCUT ONE (02:15)
[2017-08-12] MEDS: HYDROMORPHONE HCL INJ/PF 2 MG/ML AMPULE IV PRN ×2 (02:15→20:30)
[2017-08-12] MEDS: HEPARIN SOD (PORCINE) 5,000 UNIT/ML 1 ML SYRINGE SUBCUT SCH ×3 (05:32→22:09)
[2017-08-12 05:44] LABS: ABSOLUTE BASOPHILS # (AUTO) 0.1 10^3/uL (0.0-0.2); ABSOLUTE EOSINOPHILS # (AUTO) 0.2 10^3/uL (0.0-0.6); ABSOLUTE LYMPHOCYTES (AUTO) 2.7 10^3/uL (0.5-4.7); ABSOLUTE MONOCYTES (AUTO) 1.4 10^3/uL (0.1-1.4); BASOPHILS % (AUTO) 0.6 % (0-2); EOSINOPHILS % (AUTO) 1.7 % (0-6); HEMATOCRIT 37.5 % (37.9-51.0); LYMPHOCYTES % (AUTO) 21.6 % (13-45); MEAN CORPUSCULAR HGB CONC 33.5 g/dL (32.0-36.0); MEAN CORPUSCULAR VOLUME 90 fl (80-97); MONOCYTES % (AUTO) 11.5 % (3-13); PLATELET COUNT 188 10^3/uL (150-450); RED BLOOD COUNT 4.19 10^6/uL (4.35-5.55); SEGMENTED NEUTROPHILS % (AUTO) 64.6 % (42-78); TOTAL CELLS COUNTED % (AUTO) 100 %; WHITE BLOOD COUNT 12.4 10^3/uL (4.0-10.5)
[2017-08-12 05:55] LABS: HEMOGLOBIN 12.6 g/dL (13.5-17.0)
[2017-08-12 06:07] LABS: ANION GAP 7 (5-19); BLOOD UREA NITROGEN 14 mg/dL (7-20); CALCIUM 8.4 mg/dL (8.4-10.2); CARBON DIOXIDE 27 mmol/L (22-30); CHLORIDE 104 mmol/L (98-107); GLUCOSE 181 mg/dL (75-110); SODIUM 138.3 mmol/L (137-145)
--- NOTE | 2017-08-12 07:03 | PDOC PROGRESS REPORT ---
Subjective Progress Note for:: 08/12/17 Reason For Visit: SHOULDER FX Physical Exam Vital Signs: Temp Pulse Resp BP Pulse Ox 36.7 C 79 18 152/69 H 91 L 08/12/17 04:00 08/12/17 04:00 08/12/17 04:00 08/12/17 04:00 08/12/17 04:00 Intake & Output 08/11/17 08/12/17 08/13/17 06:59 06:59 06:59 Intake Total 1530 Output Total 900 Balance 630 Weight 108.862 kg 112.7 kg General appearance: PRESENT: mild distress Head exam: PRESENT: normocephalic Respiratory exam: PRESENT: unlabored Cardiovascular exam: PRESENT: RRR GI/Abdominal exam: PRESENT: soft Rectal exam: PRESENT: deferred Musculoskeletal exam: PRESENT: other - Patient is middle-aged white male sitting in bed. Left lower extremity remains crossed underneath the contralateral extremity with the ankle underneath the knee. Distal neurovascular examination is intact. Neurological exam: PRESENT: alert, awake, oriented to person, oriented to place , oriented to time, oriented to situation. ABSENT: motor sensory deficit Skin exam: PRESENT: dry, intact, warm. ABSENT: cyanosis, rash Results Laboratory Results: 08/12/17 05:15 08/12/17 05:15 08/12/17 08/12/17 05:15 05:15 WBC 12.4 H RBC 4.19 L Hgb 12.6 L D Hct 37.5 L MCV 90 MCH 30.0 MCHC 33.5 RDW 14.0 Plt Count 188 Seg Neutrophils % 64.6 Lymphocytes % 21.6 Monocytes % 11.5 Eosinophils % 1.7 Basophils % 0.6 Absolute Neutrophils 8.0 Absolute Lymphocytes 2.7 Absolute Monocytes 1.4 Absolute Eosinophils 0.2 Absolute Basophils 0.1 Sodium 138.3 Potassium 4.0 Chloride 104 Carbon Dioxide 27 Anion Gap 7 BUN 14 Creatinine 0.67 Est GFR ( Amer) > 60 Est GFR (Non-Af Amer) > 60 Glucose 181 H Calcium 8.4 Impressions: Chest X-Ray 08/11/17 02:07 IMPRESSION: Mild cardiomegaly. Mild bibasilar atelectasis. Small left pleural effusion. Hip X-Ray 08/11/17 02:07 IMPRESSION: Displaced, spiral fracture at the proximal left femur extending through the lesser trochanter. Shoulder X-Ray 08/11/17 02:07 IMPRESSION: Mildly displaced intra-articular fracture at the left glenoid. Femur X-Ray 08/11/17 02:55 IMPRESSION: Displaced, spiral fracture at the proximal left femur extending through the lesser trochanter. Assessment & Plan - Diagnosis (1) Cardiomegaly Is this a current diagnosis for this admission?: Yes Plan: Stable. Cardiac clearance has been obtained (2) Closed fracture of glenoid cavity of left scapula Qualifiers: Encounter type: initial encounter Fracture alignment: displaced Qualified Code(s): S42.142A - Displaced fracture of glenoid cavity of scapula, left shoulder, initial encounter for closed fracture Is this a current diagnosis for this admission?: Yes Plan: Being treated nonoperatively. (3) Left femoral shaft fracture Qualifiers: Encounter type: initial encounter Fracture type: closed Fracture morphology: spiral Fracture alignment: displaced Qualified Code(s): S72.342A - Displaced spiral fracture of shaft of left femur, initial encounter for closed fracture Is this a current diagnosis for this admission?: Yes Plan: Plan for open reduction internal fixation left femur fracture on August 13, 2017 under choice anesthesia. - Time Time Spent with patient: 15-24 minutes Anticipated discharge: SNF Within: Other
--- NOTE | 2017-08-12 08:35 | EKG REPORT ---
SEVERITY:- OTHERWISE NORMAL ECG - SINUS RHYTHM VENTRICULAR PREMATURE COMPLEX : Confirmed by: Caryl Greer 12-Aug-2017 08:34:02
[2017-08-12] MEDS ORDERED: RINGERS SOLUTION,LACTATED 1,000 ML IV PRN (08:44)
[2017-08-12] MEDS ORDERED: CEFAZOLIN 2 GM/D5W RTU 2 GM/50 ML RTUPB IV PRN (08:44)
[2017-08-12] MEDS: GLIPIZIDE 5 MG TABLET PO SCH ×2 (08:50→18:26)
[2017-08-12] MEDS: OXYCODONE-ACETAMINOPHEN 5-325 MG TABLET PO PRN ×2 (08:50→15:31)
[2017-08-12] MEDS: BUPROPION HCL 75 MG TABLET PO SCH ×2 (10:19→22:11)
[2017-08-12] MEDS: FAMOTIDINE INJ/PF 20 MG/2 ML SDV IV SCH ×2 (10:19→22:12)
[2017-08-12] MEDS: ARIPIPRAZOLE 5 MG TABLET PO SCH (10:19)
[2017-08-12] MEDS: DOCUSATE SODIUM 100 MG CAPSULE PO SCH ×2 (10:20→18:26)
[2017-08-12] MEDS: LISINOPRIL 10 MG TABLET PO SCH (10:20)
[2017-08-12] MEDS: PIOGLITAZONE HCL 15 MG TABLET PO SCH ×2 (10:20→18:24)
--- NOTE | 2017-08-12 20:17 | PDOC PROGRESS REPORT ---
Subjective Progress Note for:: 08/12/17 Subjective:: Patient seems to be doing about the same. Complaining of left hip and left shoulder discomfort from recent fractures. Pt is denying any chest arm or neck discomfort. Patient denying any PND, orthopnea. Patient denied any sustained palpitations, dizziness, syncope, near syncope. Patient denying any fever chills. Patient denying any other significant discomfort. Patient is maintaining sinus rhythm. Review of systems: Rest review of systems negative. Medications: Medications have been reviewed. Reason For Visit: SHOULDER FX Physical Exam Vital Signs: Temp Pulse Resp BP Pulse Ox 98.2 F 86 16 144/74 H 89 L 08/12/17 15:58 08/12/17 15:58 08/12/17 15:58 08/12/17 15:58 08/12/17 15:58 Intake & Output 08/11/17 08/12/17 08/13/17 06:59 06:59 06:59 Intake Total 1530 1280 Output Total 900 350 Balance 630 930 Weight 108.862 kg 112.7 kg Exam: GENERAL: well-nourished and in no acute distress. Alert and oriented x3 HEAD: Atraumatic, normocephalic. EYES: Pupils equal round and reactive to light, extraocular movements intact, sclera anicteric, conjunctiva are normal. ENT: TMs normal, nares patent, oropharynx clear without exudates. Moist mucous membranes. No oral ulcerations or bleeding gums noted NECK: supple without lymphadenopathy. Trachea is central. No cervical or axillary lymphadenopathy noted. Carotids are 2+, JVD WNL LUNGS: Respiration seems nonlabored, no significant accessory muscle action noted. Breath sounds clear to auscultation bilaterally and equal noted. No wheezes rales or rhonchi noted. No significant dullness noted on percussion. CHEST: Palpation of the chest wall shows no significant chest wall tenderness. No other significant abnormalities noted. 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 ABDOMEN: Soft, no significant tenderness appreciated, normoactive bowel sounds. No guarding, no rebound. No rigidity noted . No masses appreciated. EXTREMITIES: Pedal pulses are 1-2+, no calf tenderness noted. No clubbing or cyanosis.trace to 1+ pedal edema noted NEUROLOGICAL: Focused neurological exam showed no significant neurologic deficit. Normal speech, no focal weakness appreciated. PSYCH: Normal mood, normal affect. Judgment and insight within normal limits. SKIN: No significant ecchymosis, rash, ulcerations or signs of pruritus noted. MUSCULOSKELETAL EXAM: No significant joint swelling noted. Findings suggestive of left hip fracture and left shoulder fracture noted. Results Laboratory Results: 08/12/17 05:15 08/12/17 05:15 08/12/17 08/12/17 05:15 05:15 WBC 12.4 H RBC 4.19 L Hgb 12.6 L D Hct 37.5 L MCV 90 MCH 30.0 MCHC 33.5 RDW 14.0 Plt Count 188 Seg Neutrophils % 64.6 Lymphocytes % 21.6 Monocytes % 11.5 Eosinophils % 1.7 Basophils % 0.6 Absolute Neutrophils 8.0 Absolute Lymphocytes 2.7 Absolute Monocytes 1.4 Absolute Eosinophils 0.2 Absolute Basophils 0.1 Sodium 138.3 Potassium 4.0 Chloride 104 Carbon Dioxide 27 Anion Gap 7 BUN 14 Creatinine 0.67 Est GFR ( Amer) > 60 Est GFR (Non-Af Amer) > 60 Glucose 181 H Calcium 8.4 EKG Comments: Twelve-lead EKG shows sinus rhythm. No acute ST-T wave changes noted. Occasional VPCs noted. Impressions: Chest X-Ray 08/11/17 02:07 IMPRESSION: Mild cardiomegaly. Mild bibasilar atelectasis. Small left pleural effusion. Hip X-Ray 08/11/17 02:07 IMPRESSION: Displaced, spiral fracture at the proximal left femur extending through the lesser trochanter. Shoulder X-Ray 08/11/17 02:07 IMPRESSION: Mildly displaced intra-articular fracture at the left glenoid. Femur X-Ray 08/11/17 02:55 IMPRESSION: Displaced, spiral fracture at the proximal left femur extending through the lesser trochanter. Assessment & Plan - Diagnosis (1) Preoperative cardiovascular examination Is this a current diagnosis for this admission?: Yes (2) Cardiomegaly Is this a current diagnosis for this admission?: Yes (3) Closed fracture of glenoid cavity of left scapula Qualifiers: Encounter type: initial encounter Fracture alignment: displaced Qualified Code(s): S42.142A - Displaced fracture of glenoid cavity of scapula, left shoulder, initial encounter for closed fracture Is this a current diagnosis for this admission?: Yes (4) Hypertension Qualifiers: Hypertension type: essential hypertension Qualified Code(s): I10 - Essential (primary) hypertension Is this a current diagnosis for this admission?: Yes (5) Left femoral shaft fracture Qualifiers: Encounter type: initial encounter Fracture type: closed Fracture morphology: spiral Fracture alignment: displaced Qualified Code(s): S72.342A - Displaced spiral fracture of shaft of left femur, initial encounter for closed fracture Is this a current diagnosis for this admission?: Yes (6) Obesity Qualifiers: Obesity type: due to excess calories Obesity classification: adult class 3 (BMI >= 40) Serious obesity comorbidity presence: with serious comorbidity Body mass index: BMI 40.0-44.9 Qualified Code(s): E66.01 - Morbid (severe) obesity due to excess calories; Z68.41 - Body mass index (BMI) 40.0-44.9, adult ; Z68.41 - Body mass index (BMI) 40.0-44.9, adult; Z68.41 - Body mass index (BMI ) 40.0-44.9, adult; Z68.41 - Body mass index (BMI) 40.0-44.9, adult - Notes Notes: Patient did not get the echocardiogram done. Hopefully it will get done tomorrow. This is to evaluate cardiomegaly. Patient blood pressure seems stable. At this point patient remains free of any chest pain or any significant shortness of breath. He is noted to maintain sinus rhythm. Surgeons can proceed tomorrow with surgery. Will follow patient postop and once echocardiogram is done. - Time Time with patient: 15-25 minutes - CODE STATUS was discussed, patient remains full code. Surrogate decision-maker unchanged. Multiple medical problems were addressed. More than 50% of the time spent coordinating care, discussing management plans with involved caregivers. Management plans discussed with involved personnels. Medical decision making was of moderate to high complexity , patient's has multiple comorbidities. Medications reviewed and adjusted accordingly: Yes
--- NOTE | 2017-08-12 21:07 | PDOC PROGRESS REPORT ---
Subjective Progress Note for:: 08/12/17 Subjective:: He was seen by the bedside, scheduled for orthopedic intervention tomorrow Reason For Visit: SHOULDER FX Physical Exam Vital Signs: Temp Pulse Resp BP Pulse Ox 98.2 F 82 16 144/74 H 89 L 08/12/17 15:58 08/12/17 19:00 08/12/17 15:58 08/12/17 15:58 08/12/17 15:58 Intake & Output 08/11/17 08/12/17 08/13/17 06:59 06:59 06:59 Intake Total 1530 1280 Output Total 900 350 Balance 630 930 Weight 108.862 kg 112.7 kg Head exam: PRESENT: atraumatic, normocephalic Eye exam: PRESENT: conjunctiva pink, EOMI, PERRLA Ear exam: PRESENT: normal external ear exam Mouth exam: PRESENT: moist, tongue midline Neck exam: PRESENT: full ROM Respiratory exam: PRESENT: clear to auscultation evan Cardiovascular exam: PRESENT: RRR, +S1, +S2 Vascular exam: PRESENT: normal capillary refill GI/Abdominal exam: PRESENT: normal bowel sounds, soft Rectal exam: PRESENT: deferred Neurological exam: PRESENT: alert. ABSENT: motor sensory deficit Psychiatric exam: PRESENT: appropriate affect, normal mood Skin exam: PRESENT: dry, intact, warm Results Laboratory Results: 08/12/17 05:15 08/12/17 05:15 08/12/17 08/12/17 05:15 05:15 WBC 12.4 H RBC 4.19 L Hgb 12.6 L D Hct 37.5 L MCV 90 MCH 30.0 MCHC 33.5 RDW 14.0 Plt Count 188 Seg Neutrophils % 64.6 Lymphocytes % 21.6 Monocytes % 11.5 Eosinophils % 1.7 Basophils % 0.6 Absolute Neutrophils 8.0 Absolute Lymphocytes 2.7 Absolute Monocytes 1.4 Absolute Eosinophils 0.2 Absolute Basophils 0.1 Sodium 138.3 Potassium 4.0 Chloride 104 Carbon Dioxide 27 Anion Gap 7 BUN 14 Creatinine 0.67 Est GFR ( Amer) > 60 Est GFR (Non-Af Amer) > 60 Glucose 181 H Calcium 8.4 Impressions: Chest X-Ray 08/11/17 02:07 IMPRESSION: Mild cardiomegaly. Mild bibasilar atelectasis. Small left pleural effusion. Hip X-Ray 08/11/17 02:07 IMPRESSION: Displaced, spiral fracture at the proximal left femur extending through the lesser trochanter. Shoulder X-Ray 08/11/17 02:07 IMPRESSION: Mildly displaced intra-articular fracture at the left glenoid. Femur X-Ray 08/11/17 02:55 IMPRESSION: Displaced, spiral fracture at the proximal left femur extending through the lesser trochanter. Assessment & Plan - Diagnosis (1) Left femoral shaft fracture Qualifiers: Encounter type: initial encounter Fracture type: closed Fracture morphology: spiral Fracture alignment: displaced Qualified Code(s): S72.342A - Displaced spiral fracture of shaft of left femur, initial encounter for closed fracture Is this a current diagnosis for this admission?: Yes (2) Closed fracture of glenoid cavity of left scapula Qualifiers: Encounter type: initial encounter Fracture alignment: displaced Qualified Code(s): S42.142A - Displaced fracture of glenoid cavity of scapula, left shoulder, initial encounter for closed fracture Is this a current diagnosis for this admission?: Yes (3) Type 2 diabetes mellitus Qualifiers: Diabetes mellitus complication status: without complication (4) Hypertension Qualifiers: Hypertension type: essential hypertension Qualified Code(s): I10 - Essential (primary) hypertension Is this a current diagnosis for this admission?: Yes (5) Preoperative cardiovascular examination Is this a current diagnosis for this admission?: Yes
[2017-08-12] MEDS: INSULIN GLARGINE,HUM.REC.ANLOG 300 UNIT/3 ML INSULN.PEN SUBCUT SCH (22:12)
[2017-08-12] MEDS: ATORVASTATIN CALCIUM 40 MG TABLET PO SCH (22:12)
[2017-08-13] MEDS ORDERED: RINGERS SOLUTION,LACTATED 1,000 ML IV PRN
[2017-08-13] MEDS: HYDROMORPHONE HCL INJ/PF 2 MG/ML AMPULE IV PRN ×3 (02:37→20:31)
[2017-08-13 04:59] LABS: ABSOLUTE EOSINOPHILS # (AUTO) 0.2 10^3/uL (0.0-0.6); ABSOLUTE LYMPHOCYTES (AUTO) 1.9 10^3/uL (0.5-4.7); ABSOLUTE MONOCYTES (AUTO) 1.4 10^3/uL (0.1-1.4); ABSOLUTE NEUT (AUTO) 10.4 10^3/uL (1.7-8.2); BASOPHILS % (AUTO) 0.3 % (0-2); EOSINOPHILS % (AUTO) 1.1 % (0-6); HEMATOCRIT 35.8 % (37.9-51.0); HEMOGLOBIN 11.9 g/dL (13.5-17.0); MEAN CORPUSCULAR HEMOGLOBIN 29.6 pg (27.0-33.4); MEAN CORPUSCULAR HGB CONC 33.3 g/dL (32.0-36.0); MEAN CORPUSCULAR VOLUME 89 fl (80-97); MONOCYTES % (AUTO) 10.1 % (3-13); PLATELET COUNT 166 10^3/uL (150-450); RED BLOOD COUNT 4.02 10^6/uL (4.35-5.55); RED CELL DISTRIBUTION WIDTH 13.9 % (11.5-14.0); SEGMENTED NEUTROPHILS % (AUTO) 74.5 % (42-78); TOTAL CELLS COUNTED % (AUTO) 100 %; WHITE BLOOD COUNT 13.9 10^3/uL (4.0-10.5)
[2017-08-13] MEDS ORDERED: CEFAZOLIN 2 GM/D5W RTU 2 GM/50 ML RTUPB IV PRN (05:00)
[2017-08-13 05:19] LABS: ANION GAP 8 (5-19); BLOOD UREA NITROGEN 10 mg/dL (7-20); CALCIUM 8.3 mg/dL (8.4-10.2); CARBON DIOXIDE 24 mmol/L (22-30); CHLORIDE 104 mmol/L (98-107); GLUCOSE 189 mg/dL (75-110); POTASSIUM 4.1 mmol/L (3.6-5.0)
[2017-08-13] MEDS: HEPARIN SOD (PORCINE) 5,000 UNIT/ML 1 ML SYRINGE SUBCUT SCH ×2 (05:23→13:49)
[2017-08-13] MEDS: GLIPIZIDE 5 MG TABLET PO SCH ×2 (07:53→18:05)
[2017-08-13] MEDS: OXYCODONE-ACETAMINOPHEN 5-325 MG TABLET PO PRN (07:55)
[2017-08-13] MEDS ORDERED: DEXAMETHASONE SOD PHOSPHATE INJ 4 MG/1 ML VIAL ONE (09:18)
[2017-08-13] MEDS ORDERED: PHENYLEPHRINE HCL INJ/PF 10 MG/1 ML SDV ONE (09:18)
[2017-08-13] MEDS: BUPROPION HCL 75 MG TABLET PO SCH ×2 (09:45→21:28)
[2017-08-13] MEDS: DOCUSATE SODIUM 100 MG CAPSULE PO SCH ×2 (09:45→18:05)
[2017-08-13] MEDS: PIOGLITAZONE HCL 15 MG TABLET PO SCH ×2 (09:45→18:06)
[2017-08-13] MEDS: ARIPIPRAZOLE 5 MG TABLET PO SCH (09:45)
[2017-08-13] MEDS ORDERED: PROPOFOL INJ 200 MG/20 ML VIAL IV ONE (10:19)
[2017-08-13] MEDS ORDERED: MIDAZOLAM 2 MG/2 ML INJ ONE (10:19)
[2017-08-13] MEDS ORDERED: FENTANYL CITRATE INJ/PF 100 MCG/2 ML AMPUL ONE ×2 (10:19→15:10)
--- NOTE | 2017-08-13 10:31 | XCELERA REPORT ---
[address] [address] Transthoracic Echocardiogram Report Name: FLORY DUNN JR Age: 62 yrs Gender: Male : 1955 Patient Status: Inpatient Patient Location: [address] [place] [address] Study Date: 08/13/2017 08:12 AM Height: 73 in Weight: 239 lb BSA: 2.3 m2 Procedure: A complete two-dimensional transthoracic echocardiogram was performed (2D, M-mode, spectral and color flow Doppler). The study was technically adequate with some images being suboptimal in quality. Reason For Study: Cardiomegaly Ordering Physician: CARYL ROQUE Performed By: Doris Frazier Interpretation Summary The left ventricular ejection fraction is within normal limits. There is mild concentric left ventricular hypertrophy. The left ventricle is grossly normal size. Doppler measurements suggest pseudonormalized left ventricular relaxation, which is associated with grade II/IV or mild to moderate diastolic dysfunction Wall motion cannot be accurately commented on, but no definite regional wall motion abnormalities noted. The right ventricular systolic function is normal. The right atrium is normal in size The left atrial size is normal. There is a trace amount of mitral regurgitation There is no mitral valve stenosis. There is no aortic valve stenosis No aortic regurgitation is present. There is a trace to mild amount of tricuspid regurgitation There is mild pulmonary hypertension by echo Right ventricular systolic pressure is estimated to be elevated at 30- 40mmHg. The aortic root is not well visualized but is probably normal size. The inferior vena cava was not well visualized Minimal pericardial effusion. MMode/2D Measurements & Calculations RVDd: 3.1 cm LVIDd: 4.0 cm FS: 30.6 % Ao root diam: 3.0 cm IVSd: 1.0 cm LVIDs: 2.8 cm EDV(Teich): 71.3 ml LVPWd: 1.1 cm ESV(Teich): 29.5 ml Ao root area: 7.1 cm2 EF(Teich): 58.6 % LA dimension: 3.4 cm Doppler Measurements & Calculations MV E max capri: MV P1/2t max capri: Ao V2 max: LV V1 max P.8 cm/sec 94.8 cm/sec 165.1 cm/sec 7.3 mmHg MV A max capri: MV P1/2t: 107.8 msec Ao max PG: LV V1 max: 92.3 cm/sec 10.9 mmHg 135.2 cm/sec MV E/A: 1.0 MVA(P1/2t): 2.0 cm2 MV dec slope: 257.4 cm/sec2 MV dec time: 0.36 sec PA V2 max: TR max capri: 122.1 cm/sec 324.4 cm/sec PA max PG: TR max P.1 mmHg 6.0 mmHg Left Ventricle The left ventricle is grossly normal size. There is mild concentric left ventricular hypertrophy. The left ventricular ejection fraction is within normal limits. Doppler measurements suggest pseudonormalized left ventricular relaxation, which is associated with grade II/IV or mild to moderate diastolic dysfunction. Wall motion cannot be accurately commented on, but no definite regional wall motion abnormalities noted. Right Ventricle Borderline right ventricular enlargement. There is normal right ventricular wall thickness. The right ventricular systolic function is normal. Atria The right atrium is normal in size. The left atrial size is normal. Interarterial septum not well visualized and not well dopplered. Cannot comment on ASD/PFO presence. Mitral Valve The mitral valve is grossly normal. There is no mitral valve stenosis. There is a trace amount of mitral regurgitation. Aortic Valve The aortic valve is not well visualized secondary to technical limitations. There is no aortic valve stenosis. No aortic regurgitation is present. Tricuspid Valve The tricuspid valve is not well visualized, but is grossly normal. There is no tricuspid stenosis. There is a trace to mild amount of tricuspid regurgitation. There is mild pulmonary hypertension by echo. Right ventricular systolic pressure is estimated to be elevated at 30-40mmHg. Pulmonic Valve The pulmonic valve is not well visualized. Great Vessels The aortic root is not well visualized but is probably normal size. The inferior vena cava was not well visualized. Effusions Minimal pericardial effusion. : CARYL ROQUE > Caryl Roque
[2017-08-13] MEDS ORDERED: CEFAZOLIN INJ 1 GM VIAL ONE (11:06)
[2017-08-13] MEDS: FAMOTIDINE INJ/PF 20 MG/2 ML SDV IV SCH ×2 (12:09→21:28)
[2017-08-13] MEDS: LISINOPRIL 10 MG TABLET PO SCH (12:09)
[2017-08-13] MEDS ORDERED: PROMETHAZINE HCL INJ 25 MG/1 ML VIAL IV PRN ×2 (12:10)
[2017-08-13] MEDS ORDERED: MEPERIDINE HCL/PF INJ 25 MG/1 ML DISP.SYRIN IV PRN (12:10)
[2017-08-13] MEDS ORDERED: DIPHENHYDRAMINE HCL 50 MG/ML VIAL IV PRN (12:10)
--- NOTE | 2017-08-13 13:18 | Operative Report ---
Operative Report DATE OF SURGERY: 08/13/17 PREOPERATIVE DIAGNOSIS: Left subtrochanteric femur fracture OPERATION: Open reduction internal fixation of left sub-trochanteric femur fracture SURGEON: KENN JEAN ANESTHESIA: Spinal ESTIMATED BLOOD LOSS: 250 PROCEDURE: The patient supine on the fracture table the left lower extremities manipulated to affected near anatomic reduction under fluoroscopic guidance. Subsequently a pin is placed percutaneously down through the greater trochanter. Cortical opening is then reamed with a cannulated reamer. Both of these instruments are removed and now a ball-tipped guide don is attempt to be placed down the femur. Because of the patient's body habitus and not being able to obtain enough abduction of the distal aspect even using the reduction finger I was unable to pass the ball-tipped guide don into the distal femoral diaphysis. Subsequently a 15 cm longitudinal incision was made over the lateral femur and initially an attempt is made to put a turkey claw clamp across the fracture site to allow passing of the ball-tipped guide don. Still unable to pass the ball-tipped guide don. The lateral incision is then elongated and under direct palpation I deflect the ball-tipped guide don into the distal femoral diaphysis. Subsequently a Malcolm gamma 3 420 mm x 11 mm x 130 nail is advanced over the ball-tipped guide don to an appropriate depth. Prior to passing the proximal interlock which is 100 mm it is noted that the proximal aspect of the femur is riding anteriorly presumably because of the psoas deforming force. So I placed a cable around this aspect and attempted to reduce the anterior displacement prior to placing the proximal interlock for the gamma nail. The proximal interlock of 100 mm is is passed uneventfully. It slightly cephalad and the femoral head but I think this is a function of the varus deformity at the fracture site. A distal interlock is placed freehand under fluoroscopic guidance uneventfully. At this point old insertion instrumentation was removed. The wounds irrigated with bulb lavage. The closed using interrupted Vicryl followed by linda. Sterile compressive dressings are applied and the patient's return to the PACU in satisfactory condition.
[2017-08-13 14:45] LABS: HEMATOCRIT 36.7 % (37.9-51.0); MEAN CORPUSCULAR HEMOGLOBIN 29.8 pg (27.0-33.4); MEAN CORPUSCULAR HGB CONC 32.8 g/dL (32.0-36.0); MEAN CORPUSCULAR VOLUME 91 fl (80-97); PLATELET COUNT 187 10^3/uL (150-450); RED BLOOD COUNT 4.04 10^6/uL (4.35-5.55); RED CELL DISTRIBUTION WIDTH 13.6 % (11.5-14.0); WHITE BLOOD COUNT 17.5 10^3/uL (4.0-10.5)
[2017-08-13] MEDS ORDERED: METOCLOPRAMIDE HCL INJ/PF 10 MG/2 ML SDV ONE (14:48)
[2017-08-13] MEDS: ONDANSETRON HCL INJ/PF 4 MG/2 ML SDV IV PRN (14:48)
[2017-08-13] MEDS ORDERED: ONDANSETRON HCL INJ/PF 4 MG/2 ML SDV ONE (14:48)
[2017-08-13] MEDS ORDERED: ONDANSETRON 4 MG TAB.RAPDIS SL PRN (15:06)
[2017-08-13] MEDS ORDERED: MORPHINE SULFATE 10 MG/ML INJ IV PRN (15:08)
[2017-08-13 15:12] LABS: ABSOLUTE LYMPHOCYTES# (MANUAL) 4.6 10^3/uL (0.5-4.7); ABSOLUTE MONOCYTES # (MANUAL) 2.3 10^3/uL (0.1-1.4); ABSOLUTE NEUTROPHILS# (MANUAL) 10.5 10^3/uL (1.7-8.2); BASOPHILS % (MANUAL) 0 % (0-2); EOSINOPHILS % (MANUAL) 1 % (0-6); LYMPHOCYTES % (MANUAL) 26 % (13-45); MONOCYTES % (MANUAL) 13 % (3-13); OVALOCYTES 1+; PLATELET COMMENT ADEQUATE; POIKILOCYTOSIS 1+; SEGMENTED NEUTROPHILS % (MAN) 60 % (42-78); TOTAL CELLS COUNTED 100; TOXIC GRANULATION SLIGHT
[2017-08-13 15:22] LABS: ANION GAP 9 (5-19); BLOOD UREA NITROGEN 10 mg/dL (7-20); CALCIUM 8.2 mg/dL (8.4-10.2); CARBON DIOXIDE 24 mmol/L (22-30); CHLORIDE 106 mmol/L (98-107); GLUCOSE 179 mg/dL (75-110); POTASSIUM 4.3 mmol/L (3.6-5.0); SODIUM 138.5 mmol/L (137-145)
--- NOTE | 2017-08-13 15:41 | RADIOLOGY REPORT (SQ) ---
EXAM DESCRIPTION: HIP IN OPERATING RM COMPLETED DATE/TIME: 08/13/2017 3:18 pm REASON FOR STUDY: ORIF LEFT HIP/FEMUR ASST WITH FLUORO IN OR COMPARISON: None. FLUOROSCOPY TIME: 4.5 minutes 9 images saved to PACS. TECHNIQUE: Intra-operative images acquired during surgical procedure to evaluate progress. NUMBER OF IMAGES: 9 images LIMITATIONS: None. FINDINGS: Fluoroscopic images were obtained during internal fixation of the left hip and femur. Ort hopedic hardware is identified in position. Please refer to the surgeon's operative report for addit ional information IMPRESSION: IMAGE(S) OBTAINED DURING PROCEDURE. COMMENT: Quality ID [id number]: Final reports for procedures using fluoroscopy that document radiation exp osure indices, or exposure time and number of fluorographic images (if radiation exposure indices are not available) Please consult full operative report of the attending physician for description of the procedure. TECHNICAL DOCUMENTATION: JOB ID: [id number] [employer]- All Rights Reserved
--- NOTE | 2017-08-13 15:42 | RADIOLOGY REPORT (SQ) ---
EXAM DESCRIPTION: NO CHG FLUORO COMPLETE DATE/TIME: 08/13/2017 3:18 pm REASON FOR STUDY: ORIF LEFT HIP/FEMUR ASST WITH FLUORO IN OR FINDINGS: Please see combined report for performance of procedure and radiologic supervision and int erpretation. IMPRESSION: Please see combined report for performance of procedure and radiologic supervision and i nterpretation.
[2017-08-13] MEDS: OXYCODONE HCL IR 5 MG TABLET PO PRN (18:16)
[2017-08-13] MEDS: ATORVASTATIN CALCIUM 40 MG TABLET PO SCH (21:28)
[2017-08-13] MEDS: CEFAZOLIN 2 GM/D5W RTU 2 GM/50 ML RTUPB IV SCH (21:28)
[2017-08-13] MEDS ORDERED: LABETALOL HCL INJ 20 MG/4 ML DISP.SYRIN IV PRN (21:45)
--- NOTE | 2017-08-13 21:48 | PDOC PROGRESS REPORT ---
Subjective Progress Note for:: 08/13/17 Subjective:: Patient had open reduction internal fixation of the fracture femur today seen by the bedside Reason For Visit: SHOULDER FX Physical Exam Vital Signs: Temp Pulse Resp BP Pulse Ox 98.9 F 141 H 16 149/86 H 93 08/13/17 21:20 08/13/17 21:20 08/13/17 21:20 08/13/17 21:20 08/13/17 21:20 Intake & Output 08/12/17 08/13/17 08/14/17 06:59 06:59 06:59 Intake Total 1530 1640 2200 Output Total 641 674 4206 Balance 630 690 950 Weight 112.7 kg 112.7 kg Head exam: PRESENT: atraumatic, normocephalic Eye exam: PRESENT: conjunctiva pink, EOMI, PERRLA Ear exam: PRESENT: normal external ear exam Mouth exam: PRESENT: moist, tongue midline Neck exam: PRESENT: full ROM Cardiovascular exam: PRESENT: RRR, +S1, +S2 Pulses: PRESENT: normal dorsalis pedis pul, +2 pedal pulses bilateral Vascular exam: PRESENT: normal capillary refill GI/Abdominal exam: PRESENT: normal bowel sounds, soft Rectal exam: PRESENT: deferred Neurological exam: PRESENT: alert Psychiatric exam: PRESENT: appropriate affect, normal mood Skin exam: PRESENT: dry, intact, warm Results Laboratory Results: 08/13/17 14:20 08/13/17 14:20 08/13/17 08/13/17 08/13/17 04:35 04:35 14:20 WBC 13.9 H 17.5 H RBC 4.02 L 4.04 L Hgb 11.9 L 12.0 L Hct 35.8 L 36.7 L MCV 89 91 MCH 29.6 29.8 MCHC 33.3 32.8 RDW 13.9 13.6 Plt Count 166 187 Seg Neutrophils % 74.5 Not Reportable Lymphocytes % 14.0 Not Reportable Monocytes % 10.1 Not Reportable Eosinophils % 1.1 Not Reportable Basophils % 0.3 Not Reportable Absolute Neutrophils 10.4 H Not Reportable Absolute Lymphocytes 1.9 Not Reportable Absolute Monocytes 1.4 Not Reportable Absolute Eosinophils 0.2 Not Reportable Absolute Basophils 0.0 Not Reportable Sodium 136.0 L Potassium 4.1 Chloride 104 Carbon Dioxide 24 Anion Gap 8 BUN 10 Creatinine 0.59 Est GFR ( Amer) > 60 Est GFR (Non-Af Amer) > 60 Glucose 189 H Calcium 8.3 L 08/13/17 14:20 WBC RBC Hgb Hct MCV MCH MCHC RDW Plt Count Seg Neutrophils % Lymphocytes % Monocytes % Eosinophils % Basophils % Absolute Neutrophils Absolute Lymphocytes Absolute Monocytes Absolute Eosinophils Absolute Basophils Sodium 138.5 Potassium 4.3 Chloride 106 Carbon Dioxide 24 Anion Gap 9 BUN 10 Creatinine 0.60 Est GFR ( Amer) > 60 Est GFR (Non-Af Amer) > 60 Glucose 179 H Calcium 8.2 L Impressions: Chest X-Ray 08/11/17 02:07 IMPRESSION: Mild cardiomegaly. Mild bibasilar atelectasis. Small left pleural effusion. Shoulder X-Ray 08/11/17 02:07 IMPRESSION: Mildly displaced intra-articular fracture at the left glenoid. Femur X-Ray 08/11/17 02:55 IMPRESSION: Displaced, spiral fracture at the proximal left femur extending through the lesser trochanter. Fluoroscopy 08/13/17 00:00 IMPRESSION: Please see combined report for performance of procedure and radiologic supervision and interpretation. Hip X-Ray 08/13/17 00:00 IMPRESSION: IMAGE(S) OBTAINED DURING PROCEDURE. Assessment & Plan - Diagnosis (1) Left femoral shaft fracture Qualifiers: Encounter type: initial encounter Fracture type: closed Fracture morphology: spiral Fracture alignment: displaced Qualified Code(s): S72.342A - Displaced spiral fracture of shaft of left femur, initial encounter for closed fracture Is this a current diagnosis for this admission?: Yes (2) Closed fracture of glenoid cavity of left scapula Qualifiers: Encounter type: initial encounter Fracture alignment: displaced Qualified Code(s): S42.142A - Displaced fracture of glenoid cavity of scapula, left shoulder, initial encounter for closed fracture Is this a current diagnosis for this admission?: Yes (3) Type 2 diabetes mellitus Qualifiers: Diabetes mellitus complication status: without complication (4) Hypertension Qualifiers: Hypertension type: essential hypertension Qualified Code(s): I10 - Essential (primary) hypertension Is this a current diagnosis for this admission?: Yes (5) Preoperative cardiovascular examination Is this a current diagnosis for this admission?: Yes
[2017-08-13] MEDS: INSULIN LISPRO 100 UNIT/ML 3 ML VIAL SUBCUT PRN (22:54)
[2017-08-13] MEDS: INSULIN GLARGINE,HUM.REC.ANLOG 300 UNIT/3 ML INSULN.PEN SUBCUT SCH (22:54)
[2017-08-14] MEDS: OXYCODONE HCL IR 5 MG TABLET PO PRN ×2 (04:54→21:56)
[2017-08-14] MEDS: CEFAZOLIN 2 GM/D5W RTU 2 GM/50 ML RTUPB IV SCH (05:50)
--- NOTE | 2017-08-14 06:53 | PDOC PROGRESS REPORT ---
Subjective Progress Note for:: 08/14/17 Reason For Visit: SHOULDER FX 62-year-old white male postop day 1 from an open reduction internal fixation of a left subtrochanteric femur fracture. Patient complaining of pain but otherwise seems okay. Physical Exam Vital Signs: Temp Pulse Resp BP Pulse Ox 37.4 C 121 H 16 129/74 H 94 08/14/17 04:33 08/14/17 04:33 08/14/17 04:33 08/14/17 04:33 08/14/17 04:33 Intake & Output 08/12/17 08/13/17 08/14/17 06:59 06:59 06:59 Intake Total 1530 1640 2440 Output Total 297 206 2285 Balance 630 690 790 Weight 112.7 kg 112.7 kg 112.7 kg General appearance: PRESENT: mild distress, well-developed, well-nourished Head exam: PRESENT: normocephalic Respiratory exam: PRESENT: unlabored Cardiovascular exam: PRESENT: tachycardia Pulses: PRESENT: +1 pedal pulses bilateral Vascular exam: PRESENT: normal capillary refill GI/Abdominal exam: PRESENT: soft Rectal exam: PRESENT: deferred Extremities exam: PRESENT: other - Left lower extremity extended and slightly externally rotated. There is brisk capillary refill. Motor function to the great toes intact. Sensory examination is intact. Dressings been reinforced. Neurological exam: PRESENT: alert, awake, oriented to person, oriented to place , oriented to time, oriented to situation. ABSENT: motor sensory deficit Psychiatric exam: ABSENT: agitated, anxious, appropriate affect, depressed, flat affect, homicidal ideation, manic, normal mood, suicidal ideation, unusual affect, other Skin exam: PRESENT: dry, intact, warm. ABSENT: cyanosis, rash Results Laboratory Results: 08/13/17 14:20 08/13/17 14:20 08/13/17 08/13/17 14:20 14:20 WBC 17.5 H RBC 4.04 L Hgb 12.0 L Hct 36.7 L MCV 91 MCH 29.8 MCHC 32.8 RDW 13.6 Plt Count 187 Seg Neutrophils % Not Reportable Lymphocytes % Not Reportable Monocytes % Not Reportable Eosinophils % Not Reportable Basophils % Not Reportable Absolute Neutrophils Not Reportable Absolute Lymphocytes Not Reportable Absolute Monocytes Not Reportable Absolute Eosinophils Not Reportable Absolute Basophils Not Reportable Sodium 138.5 Potassium 4.3 Chloride 106 Carbon Dioxide 24 Anion Gap 9 BUN 10 Creatinine 0.60 Est GFR ( Amer) > 60 Est GFR (Non-Af Amer) > 60 Glucose 179 H Calcium 8.2 L Impressions: Chest X-Ray 08/11/17 02:07 IMPRESSION: Mild cardiomegaly. Mild bibasilar atelectasis. Small left pleural effusion. Shoulder X-Ray 08/11/17 02:07 IMPRESSION: Mildly displaced intra-articular fracture at the left glenoid. Femur X-Ray 08/11/17 02:55 IMPRESSION: Displaced, spiral fracture at the proximal left femur extending through the lesser trochanter. Fluoroscopy 08/13/17 00:00 IMPRESSION: Please see combined report for performance of procedure and radiologic supervision and interpretation. Hip X-Ray 08/13/17 00:00 IMPRESSION: IMAGE(S) OBTAINED DURING PROCEDURE. Status: Imported from PACS Assessment & Plan - Diagnosis (1) Cardiomegaly Is this a current diagnosis for this admission?: Yes Plan: Stable ?Echo pending (2) Closed fracture of glenoid cavity of left scapula Qualifiers: Encounter type: initial encounter Fracture alignment: displaced Qualified Code(s): S42.142A - Displaced fracture of glenoid cavity of scapula, left shoulder, initial encounter for closed fracture Is this a current diagnosis for this admission?: Yes Plan: Stable (3) Left femoral shaft fracture Qualifiers: Encounter type: initial encounter Fracture type: closed Fracture morphology: spiral Fracture alignment: displaced Qualified Code(s): S72.342A - Displaced spiral fracture of shaft of left femur, initial encounter for closed fracture Is this a current diagnosis for this admission?: Yes Plan: Status post ORIF. Mobilization with physical therapy and weightbearing as tolerated basis - Time Time Spent with patient: 15-24 minutes Anticipated discharge: SNF Within: Other - 62-year-old white male resident of the [facility] now status post open reduction internal fixation of a left subtrochanteric femur fracture. Anticipate the need for assisted facility placement at some point in the near future.
[2017-08-14 07:21] LABS: ABSOLUTE LYMPHOCYTES (AUTO) 1.7 10^3/uL (0.5-4.7); ABSOLUTE MONOCYTES (AUTO) 2.5 10^3/uL (0.1-1.4); ABSOLUTE NEUT (AUTO) 11.6 10^3/uL (1.7-8.2); BASOPHILS % (AUTO) 0.3 % (0-2); EOSINOPHILS % (AUTO) 0.1 % (0-6); HEMATOCRIT 29.8 % (37.9-51.0); HEMOGLOBIN 10.1 g/dL (13.5-17.0); LYMPHOCYTES % (AUTO) 10.5 % (13-45); MEAN CORPUSCULAR HEMOGLOBIN 30.1 pg (27.0-33.4); MEAN CORPUSCULAR HGB CONC 33.8 g/dL (32.0-36.0); MEAN CORPUSCULAR VOLUME 89 fl (80-97); MONOCYTES % (AUTO) 15.9 % (3-13); PLATELET COUNT 158 10^3/uL (150-450); RED BLOOD COUNT 3.34 10^6/uL (4.35-5.55); RED CELL DISTRIBUTION WIDTH 13.5 % (11.5-14.0); SEGMENTED NEUTROPHILS % (AUTO) 73.2 % (42-78); TOTAL CELLS COUNTED % (AUTO) 100 %; WHITE BLOOD COUNT 15.8 10^3/uL (4.0-10.5)
[2017-08-14 07:48] LABS: ANION GAP 12 (5-19); BLOOD UREA NITROGEN 17 mg/dL (7-20); CALCIUM 7.6 mg/dL (8.4-10.2); CARBON DIOXIDE 22 mmol/L (22-30); CHLORIDE 101 mmol/L (98-107); GLUCOSE 266 mg/dL (75-110); POTASSIUM 4.3 mmol/L (3.6-5.0); SODIUM 135.1 mmol/L (137-145)
[2017-08-14] MEDS: GLIPIZIDE 5 MG TABLET PO SCH ×2 (07:49→18:57)
[2017-08-14] MEDS: ONDANSETRON HCL INJ/PF 4 MG/2 ML SDV IV PRN (07:49)
[2017-08-14] MEDS: INSULIN LISPRO 100 UNIT/ML 3 ML VIAL SUBCUT PRN ×3 (07:49→22:03)
[2017-08-14] MEDS: ACETAMINOPHEN 325 MG TABLET PO PRN (07:49)
--- NOTE | 2017-08-14 09:19 | EKG REPORT ---
SEVERITY:- BORDERLINE ECG - SINUS TACHYCARDIA VENTRICULAR PREMATURE COMPLEX BORDERLINE T ABNORMALITIES, DIFFUSE LEADS : Confirmed by: Caryl Greer 14-Aug-2017 09:19:08
[2017-08-14] MEDS: HYDROMORPHONE HCL INJ/PF 2 MG/ML AMPULE IV PRN ×2 (09:27→15:47)
[2017-08-14] MEDS: FAMOTIDINE INJ/PF 20 MG/2 ML SDV IV SCH ×2 (11:36→21:56)
[2017-08-14] MEDS: ASPIRIN 81 MG TABLET, ENT COATED PO SCH (11:36)
[2017-08-14] MEDS: DOCUSATE SODIUM 100 MG CAPSULE PO SCH ×2 (11:37→18:57)
[2017-08-14] MEDS: PIOGLITAZONE HCL 15 MG TABLET PO SCH ×2 (11:37→18:55)
[2017-08-14] MEDS: LISINOPRIL 10 MG TABLET PO SCH (11:39)
[2017-08-14] MEDS: BUPROPION HCL 75 MG TABLET PO SCH ×2 (11:39→21:56)
[2017-08-14] MEDS: ARIPIPRAZOLE 5 MG TABLET PO SCH (11:39)
--- NOTE | 2017-08-14 19:54 | PDOC PROGRESS REPORT ---
Subjective Progress Note for:: 08/14/17 Subjective:: Patient is postop day 1. He has done reasonably well. Twelve-lead EKG shows no significant acute ST-T wave changes. Pt is denying any chest arm or neck discomfort. Patient denying any PND, orthopnea. Patient denied any sustained palpitations, dizziness, syncope, near syncope. Patient denying any fever chills. Patient denying any other significant discomfort. Patient is maintaining sinus rhythm. Review of systems: Rest review of systems negative. Medications: Medications have been reviewed. Reason For Visit: SHOULDER FX Physical Exam Vital Signs: Temp Pulse Resp BP Pulse Ox 98.3 F 98 16 138/62 H 95 08/14/17 15:46 08/14/17 15:46 08/14/17 15:46 08/14/17 15:46 08/14/17 15:46 Intake & Output 08/13/17 08/14/17 08/15/17 06:59 06:59 06:59 Intake Total 1640 2440 794 Output Total 950 1650 400 Balance 690 790 394 Weight 112.7 kg 112.7 kg Exam: GENERAL: well-nourished and in no acute distress. Alert and oriented x3 HEAD: Atraumatic, normocephalic. EYES: Pupils equal round and reactive to light, extraocular movements intact, sclera anicteric, conjunctiva are normal. ENT: TMs normal, nares patent, oropharynx clear without exudates. Moist mucous membranes. No oral ulcerations or bleeding gums noted NECK: supple without lymphadenopathy. Trachea is central. No cervical or axillary lymphadenopathy noted. Carotids are 2+, JVD WNL LUNGS: Respiration seems nonlabored, no significant accessory muscle action noted. Breath sounds clear to auscultation bilaterally and equal noted. No wheezes rales or rhonchi noted. No significant dullness noted on percussion. CHEST: Palpation of the chest wall shows no significant chest wall tenderness. No other significant abnormalities noted. HEART: [place] [employer], No PSH, 1/6 MELANY aortic area, 1/6 bran systolic murmur mitral area, no rubs, no gallops. ABDOMEN: Soft, no significant tenderness appreciated, normoactive bowel sounds. No guarding, no rebound. No rigidity noted . No masses appreciated. EXTREMITIES: Pedal pulses are 1-2+, no calf tenderness noted. No clubbing or cyanosis.trace to 1+ pedal edema noted NEUROLOGICAL: Focused neurological exam showed no significant neurologic deficit. Normal speech, no focal weakness appreciated. PSYCH: Normal mood, normal affect. Judgment and insight within normal limits. SKIN: No significant ecchymosis, rash, ulcerations or signs of pruritus noted. MUSCULOSKELETAL EXAM: No significant joint swelling noted. Postop orthopedic changes noted involving left hip Results Laboratory Results: 08/14/17 06:45 08/14/17 06:45 08/14/17 08/14/17 06:45 06:45 WBC 15.8 H RBC 3.34 L Hgb 10.1 L Hct 29.8 L MCV 89 MCH 30.1 MCHC 33.8 RDW 13.5 Plt Count 158 Seg Neutrophils % 73.2 Lymphocytes % 10.5 L Monocytes % 15.9 H Eosinophils % 0.1 Basophils % 0.3 Absolute Neutrophils 11.6 H Absolute Lymphocytes 1.7 Absolute Monocytes 2.5 H Absolute Eosinophils 0.0 Absolute Basophils 0.0 Sodium 135.1 L Potassium 4.3 Chloride 101 Carbon Dioxide 22 Anion Gap 12 BUN 17 Creatinine 0.73 Est GFR ( Amer) > 60 Est GFR (Non-Af Amer) > 60 Glucose 266 H Calcium 7.6 L EKG Comments: Telemetry strips show sinus rhythm. No sustained tachycardia or bradycardia arrhythmias noted. Mild intermittent sinus tachycardia noted. 12-lead EKG reviewed showed no significant ST-T wave changes. Impressions: Chest X-Ray 08/11/17 02:07 IMPRESSION: Mild cardiomegaly. Mild bibasilar atelectasis. Small left pleural effusion. Shoulder X-Ray 08/11/17 02:07 IMPRESSION: Mildly displaced intra-articular fracture at the left glenoid. Femur X-Ray 08/11/17 02:55 IMPRESSION: Displaced, spiral fracture at the proximal left femur extending through the lesser trochanter. Fluoroscopy 08/13/17 00:00 IMPRESSION: Please see combined report for performance of procedure and radiologic supervision and interpretation. Hip X-Ray 08/13/17 00:00 IMPRESSION: IMAGE(S) OBTAINED DURING PROCEDURE. Assessment & Plan - Diagnosis (1) Preoperative cardiovascular examination Is this a current diagnosis for this admission?: Yes (2) Cardiomegaly Is this a current diagnosis for this admission?: Yes (3) Closed fracture of glenoid cavity of left scapula Qualifiers: Encounter type: initial encounter Fracture alignment: displaced Qualified Code(s): S42.142A - Displaced fracture of glenoid cavity of scapula, left shoulder, initial encounter for closed fracture Is this a current diagnosis for this admission?: Yes (4) Hypertension Qualifiers: Hypertension type: essential hypertension Qualified Code(s): I10 - Essential (primary) hypertension Is this a current diagnosis for this admission?: Yes (5) Left femoral shaft fracture Qualifiers: Encounter type: initial encounter Fracture type: closed Fracture morphology: spiral Fracture alignment: displaced Qualified Code(s): S72.342A - Displaced spiral fracture of shaft of left femur, initial encounter for closed fracture Is this a current diagnosis for this admission?: Yes (6) Obesity Qualifiers: Obesity type: due to excess calories Obesity classification: adult class 3 (BMI >= 40) Serious obesity comorbidity presence: with serious comorbidity Body mass index: BMI 40.0-44.9 Qualified Code(s): E66.01 - Morbid (severe) obesity due to excess calories; Z68.41 - Body mass index (BMI) 40.0-44.9, adult ; Z68.41 - Body mass index (BMI) 40.0-44.9, adult; Z68.41 - Body mass index (BMI ) 40.0-44.9, adult; Z68.41 - Body mass index (BMI) 40.0-44.9, adult - Notes Notes: Patient is status post orthopedic surgery involving the left hip and left shoulder. Currently stable postop. No cardiac complications noted Will recommend DVT prophylaxis and good pain control. Blood pressure is well controlled 2D echo results reviewed. Will follow patient tomorrow and subsequently signed off once cardiovascular stability is confirmed. - Time Time with patient: 15-25 minutes - CODE STATUS was discussed, patient remains full code. Surrogate decision-maker unchanged. Multiple medical problems were addressed. More than 50% of the time spent coordinating care, discussing management plans with involved caregivers. Management plans discussed with involved personnels. Medical decision making was of moderate to high complexity , patient's has multiple comorbidities. Medications reviewed and adjusted accordingly: Yes
[2017-08-14] MEDS: ATORVASTATIN CALCIUM 40 MG TABLET PO SCH (21:56)
[2017-08-14] MEDS: INSULIN GLARGINE,HUM.REC.ANLOG 300 UNIT/3 ML INSULN.PEN SUBCUT SCH (21:56)
--- NOTE | 2017-08-14 22:06 | PDOC PROGRESS REPORT ---
Subjective Progress Note for:: 08/14/17 Subjective:: Patient seen by the bedside, he has no new complaints Reason For Visit: SHOULDER FX Physical Exam Vital Signs: Temp Pulse Resp BP Pulse Ox 99.5 F 122 H 20 120/56 L 91 L 08/14/17 19:43 08/14/17 19:43 08/14/17 19:43 08/14/17 19:43 08/14/17 19:43 Intake & Output 08/13/17 08/14/17 08/15/17 06:59 06:59 06:59 Intake Total 1640 2440 794 Output Total 950 1650 400 Balance 690 790 394 Weight 112.7 kg 112.7 kg General appearance: PRESENT: no acute distress, well-developed, well-nourished Head exam: PRESENT: atraumatic, normocephalic Eye exam: PRESENT: conjunctiva pink, EOMI, PERRLA Ear exam: PRESENT: normal external ear exam Mouth exam: PRESENT: moist, tongue midline Neck exam: PRESENT: full ROM Respiratory exam: PRESENT: clear to auscultation evan Cardiovascular exam: PRESENT: RRR, +S1, +S2 Pulses: PRESENT: normal dorsalis pedis pul, +2 pedal pulses bilateral Vascular exam: PRESENT: normal capillary refill GI/Abdominal exam: PRESENT: normal bowel sounds, soft Rectal exam: PRESENT: deferred Neurological exam: PRESENT: alert, CN II-XII grossly intact Psychiatric exam: PRESENT: appropriate affect, normal mood Skin exam: PRESENT: dry, intact, warm. ABSENT: cyanosis, rash Results Laboratory Results: 08/14/17 06:45 08/14/17 06:45 08/14/17 08/14/17 06:45 06:45 WBC 15.8 H RBC 3.34 L Hgb 10.1 L Hct 29.8 L MCV 89 MCH 30.1 MCHC 33.8 RDW 13.5 Plt Count 158 Seg Neutrophils % 73.2 Lymphocytes % 10.5 L Monocytes % 15.9 H Eosinophils % 0.1 Basophils % 0.3 Absolute Neutrophils 11.6 H Absolute Lymphocytes 1.7 Absolute Monocytes 2.5 H Absolute Eosinophils 0.0 Absolute Basophils 0.0 Sodium 135.1 L Potassium 4.3 Chloride 101 Carbon Dioxide 22 Anion Gap 12 BUN 17 Creatinine 0.73 Est GFR ( Amer) > 60 Est GFR (Non-Af Amer) > 60 Glucose 266 H Calcium 7.6 L Impressions: Chest X-Ray 08/11/17 02:07 IMPRESSION: Mild cardiomegaly. Mild bibasilar atelectasis. Small left pleural effusion. Shoulder X-Ray 08/11/17 02:07 IMPRESSION: Mildly displaced intra-articular fracture at the left glenoid. Femur X-Ray 08/11/17 02:55 IMPRESSION: Displaced, spiral fracture at the proximal left femur extending through the lesser trochanter. Fluoroscopy 08/13/17 00:00 IMPRESSION: Please see combined report for performance of procedure and radiologic supervision and interpretation. Hip X-Ray 08/13/17 00:00 IMPRESSION: IMAGE(S) OBTAINED DURING PROCEDURE. Assessment & Plan - Diagnosis (1) Left femoral shaft fracture Qualifiers: Encounter type: subsequent encounter Fracture type: closed Fracture morphology: spiral Fracture alignment: displaced Is this a current diagnosis for this admission?: Yes (2) Closed fracture of glenoid cavity of left scapula Qualifiers: Encounter type: initial encounter Fracture alignment: displaced Qualified Code(s): S42.142A - Displaced fracture of glenoid cavity of scapula, left shoulder, initial encounter for closed fracture Is this a current diagnosis for this admission?: Yes (3) Type 2 diabetes mellitus Qualifiers: Diabetes mellitus complication status: without complication Is this a current diagnosis for this admission?: Yes (4) Hypertension Qualifiers: Hypertension type: essential hypertension Qualified Code(s): I10 - Essential (primary) hypertension Is this a current diagnosis for this admission?: Yes (5) Preoperative cardiovascular examination Is this a current diagnosis for this admission?: Yes
--- NOTE | 2017-08-15 06:41 | PDOC PROGRESS REPORT ---
Subjective Progress Note for:: 08/15/17 Subjective:: 8-year-old white male 2 days status post open reduction internal fixation for left subtrochanteric femur fracture. Patient sitting upright comfortable in hospital bed this morning. Patient reports his leg is painful this morning the however she desires to make progress with physical therapy. Reason For Visit: SHOULDER FX Physical Exam Vital Signs: Temp Pulse Resp BP Pulse Ox 36.9 C 95 16 105/57 L 91 L 08/15/17 04:18 08/15/17 04:18 08/15/17 04:18 08/15/17 04:18 08/15/17 04:18 Intake & Output 08/13/17 08/14/17 08/15/17 06:59 06:59 06:59 Intake Total 1640 2440 1168 Output Total 950 1650 840 Balance 690 790 328 Weight 112.7 kg 112.7 kg 114 kg General appearance: PRESENT: no acute distress, well-developed, well-nourished Head exam: PRESENT: atraumatic, normocephalic Respiratory exam: PRESENT: unlabored Additional comments: Nasal cannula in place. Pulses: PRESENT: normal dorsalis pedis pul, +2 pedal pulses bilateral Vascular exam: PRESENT: normal capillary refill Additional comments: Patient sitting upright in hospital bed with hip slightly externally rotated and the flexed. Patient reports he is very tender to palpation and was adamant about not performing active or passive range of motion this morning. His OpSite dressing is clean dry and intact. And this is left in place. He has brisk capillary refill to toes on bilateral lower extremities his sensorimotor functions are intact and distal neurovascular exam is intact. Additional comments: Patient has not yet been seen by physical therapy postoperatively. This is concerning as this is postop day 2. Once he is seen by physical therapy he will work towards increasing strength and range of motion of left lower extremity and independent ambulation. Once he has made progress this will determine eligibility for discharge. He will likely be discharged back to his tertiary care facility [facility]. Neurological exam: PRESENT: alert, awake, oriented to person, oriented to place , oriented to time, oriented to situation, CN II-XII grossly intact. ABSENT: motor sensory deficit Psychiatric exam: PRESENT: appropriate affect, normal mood. ABSENT: homicidal ideation, suicidal ideation Skin exam: PRESENT: dry, intact, warm. ABSENT: cyanosis, rash Results Laboratory Results: 08/14/17 06:45 08/14/17 06:45 08/14/17 08/14/17 06:45 06:45 WBC 15.8 H RBC 3.34 L Hgb 10.1 L Hct 29.8 L MCV 89 MCH 30.1 MCHC 33.8 RDW 13.5 Plt Count 158 Seg Neutrophils % 73.2 Lymphocytes % 10.5 L Monocytes % 15.9 H Eosinophils % 0.1 Basophils % 0.3 Absolute Neutrophils 11.6 H Absolute Lymphocytes 1.7 Absolute Monocytes 2.5 H Absolute Eosinophils 0.0 Absolute Basophils 0.0 Sodium 135.1 L Potassium 4.3 Chloride 101 Carbon Dioxide 22 Anion Gap 12 BUN 17 Creatinine 0.73 Est GFR ( Amer) > 60 Est GFR (Non-Af Amer) > 60 Glucose 266 H Calcium 7.6 L Impressions: Chest X-Ray 08/11/17 02:07 IMPRESSION: Mild cardiomegaly. Mild bibasilar atelectasis. Small left pleural effusion. Shoulder X-Ray 08/11/17 02:07 IMPRESSION: Mildly displaced intra-articular fracture at the left glenoid. Femur X-Ray 08/11/17 02:55 IMPRESSION: Displaced, spiral fracture at the proximal left femur extending through the lesser trochanter. Fluoroscopy 08/13/17 00:00 IMPRESSION: Please see combined report for performance of procedure and radiologic supervision and interpretation. Hip X-Ray 08/13/17 00:00 IMPRESSION: IMAGE(S) OBTAINED DURING PROCEDURE. Assessment & Plan - Diagnosis (1) Left femoral shaft fracture Qualifiers: Encounter type: subsequent encounter Fracture type: closed Fracture morphology: spiral Fracture alignment: displaced Qualified Code(s): S72.342A - Displaced spiral fracture of shaft of left femur, initial encounter for closed fracture Is this a current diagnosis for this admission?: Yes Plan: 62-year-old white male 2 days status post open reduction internal fixation for left subtrochanteric femur fracture. Patient has not yet been seen by physical therapy and this is concerning and is now postop day 2. Once seen by physical therapy he will work towards improving strength and range of motion of left lower extremity and work towards independent ambulation. This will determine his eligibility for discharge. His OpSite dressing is clean dry and intact. This is left in place. Upon discharge he would like to return to his home at [facility] care facility.
[2017-08-15] MEDS: GLIPIZIDE 5 MG TABLET PO SCH ×2 (09:18→18:35)
[2017-08-15] MEDS: OXYCODONE HCL IR 5 MG TABLET PO PRN (09:20)
[2017-08-15] MEDS: ARIPIPRAZOLE 5 MG TABLET PO SCH (09:48)
[2017-08-15] MEDS: ASPIRIN 81 MG TABLET, ENT COATED PO SCH (09:49)
[2017-08-15] MEDS: DOCUSATE SODIUM 100 MG CAPSULE PO SCH ×2 (09:50→18:35)
[2017-08-15] MEDS: BUPROPION HCL 75 MG TABLET PO SCH ×2 (09:50→22:26)
[2017-08-15] MEDS: LISINOPRIL 10 MG TABLET PO SCH (09:52)
[2017-08-15] MEDS: PIOGLITAZONE HCL 15 MG TABLET PO SCH ×2 (09:53→18:35)
[2017-08-15] MEDS: FAMOTIDINE INJ/PF 20 MG/2 ML SDV IV SCH ×2 (09:55→22:26)
[2017-08-15 10:13] LABS: ABSOLUTE BASOPHILS # (AUTO) 0.1 10^3/uL (0.0-0.2); ABSOLUTE EOSINOPHILS # (AUTO) 0.1 10^3/uL (0.0-0.6); ABSOLUTE LYMPHOCYTES (AUTO) 1.6 10^3/uL (0.5-4.7); ABSOLUTE MONOCYTES (AUTO) 2.2 10^3/uL (0.1-1.4); ABSOLUTE NEUT (AUTO) 14.8 10^3/uL (1.7-8.2); BASOPHILS % (AUTO) 0.3 % (0-2); EOSINOPHILS % (AUTO) 0.6 % (0-6); HEMATOCRIT 24.8 % (37.9-51.0); HEMOGLOBIN 8.3 g/dL (13.5-17.0); LYMPHOCYTES % (AUTO) 8.5 % (13-45); MEAN CORPUSCULAR HEMOGLOBIN 30.2 pg (27.0-33.4); MEAN CORPUSCULAR HGB CONC 33.6 g/dL (32.0-36.0); MEAN CORPUSCULAR VOLUME 90 fl (80-97); MONOCYTES % (AUTO) 11.7 % (3-13); PLATELET COUNT 176 10^3/uL (150-450); RED BLOOD COUNT 2.76 10^6/uL (4.35-5.55); RED CELL DISTRIBUTION WIDTH 13.5 % (11.5-14.0); SEGMENTED NEUTROPHILS % (AUTO) 78.9 % (42-78); TOTAL CELLS COUNTED % (AUTO) 100 %; WHITE BLOOD COUNT 18.7 10^3/uL (4.0-10.5)
[2017-08-15 10:35] LABS: ALANINE AMINOTRANSFERASE 32 U/L (21-72); ALBUMIN 2.5 g/dL (3.5-5.0); ALKALINE PHOSPHATASE 73 U/L (38-126); ANION GAP 6 (5-19); ASPARTATE AMINO TRANSFERASE 26 U/L (17-59); BILIRUBIN,DIRECT 0.3 mg/dL (0.0-0.4); BILIRUBIN,TOTAL 0.7 mg/dL (0.2-1.3); BLOOD UREA NITROGEN 33 mg/dL (7-20); CALCIUM 7.9 mg/dL (8.4-10.2); CARBON DIOXIDE 26 mmol/L (22-30); CHLORIDE 99 mmol/L (98-107); GLUCOSE 297 mg/dL (75-110); POTASSIUM 4.2 mmol/L (3.6-5.0); SODIUM 131.1 mmol/L (137-145); TOTAL PROTEIN 4.6 g/dL (6.3-8.2)
[2017-08-15] MEDS ORDERED: NORMAL SALINE 250 ML IV PRN (10:55)
--- NOTE | 2017-08-15 20:18 | PDOC PROGRESS REPORT ---
Subjective Progress Note for:: 08/15/17 Subjective:: Patient is postop day 2. He has done reasonably well. Twelve-lead EKG yesterday shows no significant acute ST-T wave changes. Pt is denying any chest arm or neck discomfort. Patient denying any PND, orthopnea. Patient denied any sustained palpitations, dizziness, syncope, near syncope. Patient denying any fever chills. Patient denying any other significant discomfort. Patient is maintaining sinus rhythm. Review of systems: Rest review of systems negative. Medications: Medications have been reviewed. Reason For Visit: SHOULDER FX Physical Exam Vital Signs: Temp Pulse Resp BP Pulse Ox 98.0 F 91 16 123/45 L 93 08/15/17 17:05 08/15/17 17:05 08/15/17 17:05 08/15/17 17:05 08/15/17 17:05 Intake & Output 08/14/17 08/15/17 08/16/17 06:59 06:59 06:59 Intake Total 2440 1168 830 Output Total 1650 840 300 Balance 790 328 530 Weight 112.7 kg 114 kg Exam: GENERAL: well-nourished and in no acute distress. Alert and oriented x3 HEAD: Atraumatic, normocephalic. EYES: Pupils equal round and reactive to light, extraocular movements intact, sclera anicteric, conjunctiva are normal. ENT: TMs normal, nares patent, oropharynx clear without exudates. Moist mucous membranes. No oral ulcerations or bleeding gums noted NECK: supple without lymphadenopathy. Trachea is central. No cervical or axillary lymphadenopathy noted. Carotids are 2+, JVD WNL LUNGS: Respiration seems nonlabored, no significant accessory muscle action noted. Breath sounds clear to auscultation bilaterally and equal noted. No wheezes rales or rhonchi noted. No significant dullness noted on percussion. CHEST: Palpation of the chest wall shows no significant chest wall tenderness. No other significant abnormalities noted. HEART: [place] [employer], No PSH, 1/6 MELANY aortic area, 1/6 bran systolic murmur mitral area, no rubs, no gallops. ABDOMEN: Soft, no significant tenderness appreciated, normoactive bowel sounds. No guarding, no rebound. No rigidity noted . No masses appreciated. EXTREMITIES: Pedal pulses are 1-2+, no calf tenderness noted. No clubbing or cyanosis.trace to 1+ pedal edema noted NEUROLOGICAL: Focused neurological exam showed no significant neurologic deficit. Normal speech, no focal weakness appreciated. PSYCH: Normal mood, normal affect. Judgment and insight within normal limits. SKIN: No significant ecchymosis, rash, ulcerations or signs of pruritus noted. MUSCULOSKELETAL EXAM: No significant joint swelling noted. Postsurgical changes noted left hip. Results Laboratory Results: 08/15/17 09:45 08/15/17 09:45 08/15/17 08/15/17 08/15/17 09:45 09:45 11:25 WBC 18.7 H RBC 2.76 L Hgb 8.3 L Hct 24.8 L MCV 90 MCH 30.2 MCHC 33.6 RDW 13.5 Plt Count 176 Seg Neutrophils % 78.9 H Lymphocytes % 8.5 L Monocytes % 11.7 Eosinophils % 0.6 Basophils % 0.3 Absolute Neutrophils 14.8 H Absolute Lymphocytes 1.6 Absolute Monocytes 2.2 H Absolute Eosinophils 0.1 Absolute Basophils 0.1 Sodium 131.1 L Potassium 4.2 Chloride 99 Carbon Dioxide 26 Anion Gap 6 BUN 33 H Creatinine 0.92 Est GFR ( Amer) > 60 Est GFR (Non-Af Amer) > 60 Glucose 297 H Calcium 7.9 L Total Bilirubin 0.7 AST 26 ALT 32 Alkaline Phosphatase 73 Total Protein 4.6 L Albumin 2.5 L Blood Type O POSITIVE Antibody Screen NEGATIVE Impressions: Chest X-Ray 08/11/17 02:07 IMPRESSION: Mild cardiomegaly. Mild bibasilar atelectasis. Small left pleural effusion. Shoulder X-Ray 08/11/17 02:07 IMPRESSION: Mildly displaced intra-articular fracture at the left glenoid. Femur X-Ray 08/11/17 02:55 IMPRESSION: Displaced, spiral fracture at the proximal left femur extending through the lesser trochanter. Fluoroscopy 08/13/17 00:00 IMPRESSION: Please see combined report for performance of procedure and radiologic supervision and interpretation. Hip X-Ray 08/13/17 00:00 IMPRESSION: IMAGE(S) OBTAINED DURING PROCEDURE. Assessment & Plan - Diagnosis (1) Preoperative cardiovascular examination Is this a current diagnosis for this admission?: Yes (2) Cardiomegaly Is this a current diagnosis for this admission?: Yes (3) Closed fracture of glenoid cavity of left scapula Qualifiers: Encounter type: initial encounter Fracture alignment: displaced Qualified Code(s): S42.142A - Displaced fracture of glenoid cavity of scapula, left shoulder, initial encounter for closed fracture Is this a current diagnosis for this admission?: Yes (4) Hypertension Qualifiers: Hypertension type: essential hypertension Qualified Code(s): I10 - Essential (primary) hypertension Is this a current diagnosis for this admission?: Yes (5) Left femoral shaft fracture Qualifiers: Encounter type: subsequent encounter Fracture type: closed Fracture morphology: spiral Fracture alignment: displaced Is this a current diagnosis for this admission?: Yes (6) Obesity Qualifiers: Obesity type: due to excess calories Obesity classification: adult class 3 (BMI >= 40) Serious obesity comorbidity presence: with serious comorbidity Body mass index: BMI 40.0-44.9 Qualified Code(s): E66.01 - Morbid (severe) obesity due to excess calories; Z68.41 - Body mass index (BMI) 40.0-44.9, adult ; Z68.41 - Body mass index (BMI) 40.0-44.9, adult; Z68.41 - Body mass index (BMI ) 40.0-44.9, adult; Z68.41 - Body mass index (BMI) 40.0-44.9, adult - Notes Notes: Patient has done well postop. Blood pressure is well controlled. No cardiac complications noted. At this point will sign off. Please reconsult if needed. Patient can follow-up with me for cardiovascular standpoint if he wishes. - Time Time with patient: 15-25 minutes - CODE STATUS was discussed, patient remains full code. Surrogate decision-maker unchanged. Multiple medical problems were addressed. More than 50% of the time spent coordinating care, discussing management plans with involved caregivers. Management plans discussed with involved personnels. Medical decision making was of low to moderate complexity , patient's has multiple comorbidities. Medications reviewed and adjusted accordingly: Yes
--- NOTE | 2017-08-15 21:23 | PDOC PROGRESS REPORT ---
Subjective Progress Note for:: 08/15/17 Subjective:: Patient seen by the bedside, he has no new complaints Reason For Visit: SHOULDER FX Physical Exam Vital Signs: Temp Pulse Resp BP Pulse Ox 98.1 F 93 16 114/49 L 92 08/15/17 19:52 08/15/17 19:52 08/15/17 19:52 08/15/17 19:52 08/15/17 19:52 Intake & Output 08/14/17 08/15/17 08/16/17 06:59 06:59 06:59 Intake Total 2440 1168 830 Output Total 1650 840 300 Balance 790 328 530 Weight 112.7 kg 114 kg General appearance: PRESENT: no acute distress Eye exam: PRESENT: PERRLA Respiratory exam: PRESENT: clear to auscultation evan Cardiovascular exam: PRESENT: +S1, +S2 GI/Abdominal exam: PRESENT: soft Neurological exam: PRESENT: alert, CN II-XII grossly intact Results Laboratory Results: 08/15/17 09:45 08/15/17 09:45 08/15/17 08/15/17 08/15/17 09:45 09:45 11:25 WBC 18.7 H RBC 2.76 L Hgb 8.3 L Hct 24.8 L MCV 90 MCH 30.2 MCHC 33.6 RDW 13.5 Plt Count 176 Seg Neutrophils % 78.9 H Lymphocytes % 8.5 L Monocytes % 11.7 Eosinophils % 0.6 Basophils % 0.3 Absolute Neutrophils 14.8 H Absolute Lymphocytes 1.6 Absolute Monocytes 2.2 H Absolute Eosinophils 0.1 Absolute Basophils 0.1 Sodium 131.1 L Potassium 4.2 Chloride 99 Carbon Dioxide 26 Anion Gap 6 BUN 33 H Creatinine 0.92 Est GFR ( Amer) > 60 Est GFR (Non-Af Amer) > 60 Glucose 297 H Calcium 7.9 L Total Bilirubin 0.7 AST 26 ALT 32 Alkaline Phosphatase 73 Total Protein 4.6 L Albumin 2.5 L Blood Type O POSITIVE Antibody Screen NEGATIVE Impressions: Chest X-Ray 08/11/17 02:07 IMPRESSION: Mild cardiomegaly. Mild bibasilar atelectasis. Small left pleural effusion. Shoulder X-Ray 08/11/17 02:07 IMPRESSION: Mildly displaced intra-articular fracture at the left glenoid. Femur X-Ray 08/11/17 02:55 IMPRESSION: Displaced, spiral fracture at the proximal left femur extending through the lesser trochanter. Fluoroscopy 08/13/17 00:00 IMPRESSION: Please see combined report for performance of procedure and radiologic supervision and interpretation. Hip X-Ray 08/13/17 00:00 IMPRESSION: IMAGE(S) OBTAINED DURING PROCEDURE. Assessment & Plan - Diagnosis (1) Left femoral shaft fracture Qualifiers: Encounter type: subsequent encounter Fracture type: closed Fracture morphology: spiral Fracture alignment: displaced Is this a current diagnosis for this admission?: Yes (2) Closed fracture of glenoid cavity of left scapula Qualifiers: Encounter type: initial encounter Fracture alignment: displaced Qualified Code(s): S42.142A - Displaced fracture of glenoid cavity of scapula, left shoulder, initial encounter for closed fracture Is this a current diagnosis for this admission?: Yes (3) Type 2 diabetes mellitus Qualifiers: Diabetes mellitus complication status: without complication Is this a current diagnosis for this admission?: Yes (4) Hypertension Qualifiers: Hypertension type: essential hypertension Qualified Code(s): I10 - Essential (primary) hypertension Is this a current diagnosis for this admission?: Yes (5) Preoperative cardiovascular examination Is this a current diagnosis for this admission?: Yes
[2017-08-15] MEDS: ATORVASTATIN CALCIUM 40 MG TABLET PO SCH (22:26)
[2017-08-15] MEDS: INSULIN GLARGINE,HUM.REC.ANLOG 300 UNIT/3 ML INSULN.PEN SUBCUT SCH (22:57)
[2017-08-15] MEDS: RINGERS SOLUTION,LACTATED 1,000 ML IV PRN (23:46)
[2017-08-16] MEDS: RINGERS SOLUTION,LACTATED 1,000 ML IV PRN ×2 (06:52→20:19)
[2017-08-16 06:55] LABS: HEMATOCRIT 27.9 % (37.9-51.0); HEMOGLOBIN 9.5 g/dL (13.5-17.0); MEAN CORPUSCULAR HGB CONC 34.1 g/dL (32.0-36.0); MEAN CORPUSCULAR VOLUME 88 fl (80-97); PLATELET COUNT 143 10^3/uL (150-450); RED BLOOD COUNT 3.18 10^6/uL (4.35-5.55); RED CELL DISTRIBUTION WIDTH 14.4 % (11.5-14.0); WHITE BLOOD COUNT 14.8 10^3/uL (4.0-10.5)
[2017-08-16 07:09] LABS: ANION GAP 8 (5-19); BLOOD UREA NITROGEN 33 mg/dL (7-20); CALCIUM 7.6 mg/dL (8.4-10.2); CARBON DIOXIDE 26 mmol/L (22-30); CHLORIDE 101 mmol/L (98-107); GLUCOSE 175 mg/dL (75-110); POTASSIUM 4.4 mmol/L (3.6-5.0); SODIUM 135.2 mmol/L (137-145)
--- NOTE | 2017-08-16 07:59 | PDOC PROGRESS REPORT ---
Subjective Progress Note for:: 08/16/17 Reason For Visit: SHOULDER FX 62-year-old white male with a left glenoid fracture and a left proximal femur fracture. The latter underwent an open reduction internal fixation. The patient is now lying in bed very protective the left lower extremity stating that any motion causes discomfort. Physical Exam Vital Signs: Temp Pulse Resp BP Pulse Ox 36.7 C 91 16 121/53 L 93 08/16/17 03:26 08/16/17 03:26 08/16/17 03:26 08/16/17 03:26 08/16/17 03:26 Intake & Output 08/15/17 08/16/17 08/17/17 06:59 06:59 06:59 Intake Total 1168 2670 Output Total 840 800 Balance 328 1870 Weight 114 kg 114 kg General appearance: PRESENT: mild distress Head exam: PRESENT: normocephalic Respiratory exam: PRESENT: unlabored Cardiovascular exam: PRESENT: RRR Pulses: PRESENT: +1 pedal pulses bilateral GI/Abdominal exam: PRESENT: soft Rectal exam: PRESENT: deferred Extremities exam: PRESENT: other - Left lower extremity dressing has been reinforced. My plan today was to change the dressing. Patient refused because of expected discomfort. Neurological exam: PRESENT: alert, awake, oriented to person, oriented to place , oriented to time, oriented to situation. ABSENT: motor sensory deficit Psychiatric exam: PRESENT: agitated, depressed Skin exam: PRESENT: dry, intact, warm. ABSENT: cyanosis, rash Results Laboratory Results: 08/16/17 06:06 08/16/17 06:06 08/15/17 08/15/17 08/15/17 09:45 09:45 11:25 WBC 18.7 H RBC 2.76 L Hgb 8.3 L Hct 24.8 L MCV 90 MCH 30.2 MCHC 33.6 RDW 13.5 Plt Count 176 Seg Neutrophils % 78.9 H Lymphocytes % 8.5 L Monocytes % 11.7 Eosinophils % 0.6 Basophils % 0.3 Absolute Neutrophils 14.8 H Absolute Lymphocytes 1.6 Absolute Monocytes 2.2 H Absolute Eosinophils 0.1 Absolute Basophils 0.1 Sodium 131.1 L Potassium 4.2 Chloride 99 Carbon Dioxide 26 Anion Gap 6 BUN 33 H Creatinine 0.92 Est GFR ( Amer) > 60 Est GFR (Non-Af Amer) > 60 Glucose 297 H Calcium 7.9 L Total Bilirubin 0.7 AST 26 ALT 32 Alkaline Phosphatase 73 Total Protein 4.6 L Albumin 2.5 L Blood Type O POSITIVE Antibody Screen NEGATIVE 08/16/17 08/16/17 06:06 06:06 WBC 14.8 H RBC 3.18 L Hgb 9.5 L Hct 27.9 L MCV 88 MCH 30.0 MCHC 34.1 RDW 14.4 H Plt Count 143 L Seg Neutrophils % Lymphocytes % Monocytes % Eosinophils % Basophils % Absolute Neutrophils Absolute Lymphocytes Absolute Monocytes Absolute Eosinophils Absolute Basophils Sodium 135.2 L Potassium 4.4 Chloride 101 Carbon Dioxide 26 Anion Gap 8 BUN 33 H Creatinine 0.72 Est GFR ( Amer) > 60 Est GFR (Non-Af Amer) > 60 Glucose 175 H Calcium 7.6 L Total Bilirubin AST ALT Alkaline Phosphatase Total Protein Albumin Blood Type Antibody Screen Impressions: Chest X-Ray 08/11/17 02:07 IMPRESSION: Mild cardiomegaly. Mild bibasilar atelectasis. Small left pleural effusion. Shoulder X-Ray 08/11/17 02:07 IMPRESSION: Mildly displaced intra-articular fracture at the left glenoid. Femur X-Ray 08/11/17 02:55 IMPRESSION: Displaced, spiral fracture at the proximal left femur extending through the lesser trochanter. Fluoroscopy 08/13/17 00:00 IMPRESSION: Please see combined report for performance of procedure and radiologic supervision and interpretation. Hip X-Ray 08/13/17 00:00 IMPRESSION: IMAGE(S) OBTAINED DURING PROCEDURE. Status: Imported from PACS Assessment & Plan - Diagnosis (1) Cardiomegaly Is this a current diagnosis for this admission?: Yes Plan: Stable (2) Closed fracture of glenoid cavity of left scapula Qualifiers: Encounter type: initial encounter Fracture alignment: displaced Qualified Code(s): S42.142A - Displaced fracture of glenoid cavity of scapula, left shoulder, initial encounter for closed fracture Is this a current diagnosis for this admission?: Yes Plan: Being treated nonoperatively (3) Left femoral shaft fracture Qualifiers: Encounter type: subsequent encounter Fracture type: closed Fracture morphology: spiral Fracture alignment: displaced Is this a current diagnosis for this admission?: Yes Plan: Status post open reduction internal fixation. Patient being mobilized with physical therapy on a protected weightbearing basis. (4) Postoperative anemia due to acute blood loss Is this a current diagnosis for this admission?: Yes Plan: Patient had a hematocrit yesterday the dropped to 24%. He received 2 units of packed red blood cells. This morning his hematocrit is 27.9%. - Time Time Spent with patient: 15-24 minutes Anticipated discharge: SNF Within: Other
[2017-08-16] MEDS: GLIPIZIDE 5 MG TABLET PO SCH ×2 (08:04→17:21)
[2017-08-16] MEDS: FAMOTIDINE INJ/PF 20 MG/2 ML SDV IV SCH ×2 (09:19→23:16)
[2017-08-16] MEDS: ASPIRIN 81 MG TABLET, ENT COATED PO SCH (09:19)
[2017-08-16] MEDS: ARIPIPRAZOLE 5 MG TABLET PO SCH (09:20)
[2017-08-16] MEDS: OXYCODONE HCL IR 5 MG TABLET PO PRN ×2 (09:20→20:26)
[2017-08-16] MEDS: LISINOPRIL 10 MG TABLET PO SCH (09:21)
[2017-08-16] MEDS: DOCUSATE SODIUM 100 MG CAPSULE PO SCH ×2 (09:21→17:21)
[2017-08-16] MEDS: PIOGLITAZONE HCL 15 MG TABLET PO SCH ×2 (09:22→17:20)
[2017-08-16] MEDS: BUPROPION HCL 75 MG TABLET PO SCH ×2 (09:22→23:16)
[2017-08-16] MEDS: HYDROMORPHONE HCL INJ/PF 2 MG/ML AMPULE IV PRN (11:42)
[2017-08-16] MEDS: INSULIN LISPRO 100 UNIT/ML 3 ML VIAL SUBCUT PRN ×2 (12:20→23:31)
--- NOTE | 2017-08-16 19:26 | PDOC PROGRESS REPORT ---
Subjective Progress Note for:: 08/16/17 Subjective:: Patient was seen by the bedside, there is no new complaints Reason For Visit: SHOULDER FX Physical Exam Vital Signs: Temp Pulse Resp BP Pulse Ox 98.8 F 92 16 127/60 H 95 08/16/17 15:45 08/16/17 15:45 08/16/17 15:45 08/16/17 15:45 08/16/17 15:45 Intake & Output 08/15/17 08/16/17 08/17/17 06:59 06:59 06:59 Intake Total 1168 2670 2180 Output Total 840 800 400 Balance 328 1870 1780 Weight 114 kg 114 kg General appearance: PRESENT: no acute distress, well-developed, well-nourished Head exam: PRESENT: atraumatic, normocephalic Eye exam: PRESENT: conjunctiva pink, EOMI, PERRLA Ear exam: PRESENT: normal external ear exam Mouth exam: PRESENT: moist, tongue midline Neck exam: PRESENT: full ROM Respiratory exam: PRESENT: clear to auscultation evan Cardiovascular exam: PRESENT: RRR, +S1, +S2 Vascular exam: PRESENT: normal capillary refill GI/Abdominal exam: PRESENT: normal bowel sounds, soft Rectal exam: PRESENT: deferred Neurological exam: PRESENT: alert Psychiatric exam: PRESENT: appropriate affect, normal mood Skin exam: PRESENT: dry, intact, warm Results Laboratory Results: 08/16/17 06:06 08/16/17 06:06 08/15/17 08/16/17 08/16/17 11:25 06:06 06:06 WBC 14.8 H RBC 3.18 L Hgb 9.5 L Hct 27.9 L MCV 88 MCH 30.0 MCHC 34.1 RDW 14.4 H Plt Count 143 L Sodium 135.2 L Potassium 4.4 Chloride 101 Carbon Dioxide 26 Anion Gap 8 BUN 33 H Creatinine 0.72 Est GFR ( Amer) > 60 Est GFR (Non-Af Amer) > 60 Glucose 175 H Calcium 7.6 L Blood Type O POSITIVE Antibody Screen NEGATIVE Impressions: Chest X-Ray 08/11/17 02:07 IMPRESSION: Mild cardiomegaly. Mild bibasilar atelectasis. Small left pleural effusion. Shoulder X-Ray 08/11/17 02:07 IMPRESSION: Mildly displaced intra-articular fracture at the left glenoid. Femur X-Ray 08/11/17 02:55 IMPRESSION: Displaced, spiral fracture at the proximal left femur extending through the lesser trochanter. Fluoroscopy 08/13/17 00:00 IMPRESSION: Please see combined report for performance of procedure and radiologic supervision and interpretation. Hip X-Ray 08/13/17 00:00 IMPRESSION: IMAGE(S) OBTAINED DURING PROCEDURE. Assessment & Plan - Diagnosis (1) Left femoral shaft fracture Qualifiers: Encounter type: subsequent encounter Fracture type: closed Fracture morphology: spiral Fracture alignment: displaced Is this a current diagnosis for this admission?: Yes (2) Closed fracture of glenoid cavity of left scapula Qualifiers: Encounter type: initial encounter Fracture alignment: displaced Qualified Code(s): S42.142A - Displaced fracture of glenoid cavity of scapula, left shoulder, initial encounter for closed fracture Is this a current diagnosis for this admission?: Yes (3) Type 2 diabetes mellitus Qualifiers: Diabetes mellitus complication status: without complication Is this a current diagnosis for this admission?: Yes (4) Hypertension Qualifiers: Hypertension type: essential hypertension Qualified Code(s): I10 - Essential (primary) hypertension Is this a current diagnosis for this admission?: Yes (5) Preoperative cardiovascular examination Is this a current diagnosis for this admission?: Yes
[2017-08-16] MEDS: ATORVASTATIN CALCIUM 40 MG TABLET PO SCH (23:16)
[2017-08-16] MEDS: INSULIN GLARGINE,HUM.REC.ANLOG 300 UNIT/3 ML INSULN.PEN SUBCUT SCH (23:28)
[2017-08-17] MEDS: RINGERS SOLUTION,LACTATED 1,000 ML IV PRN (02:56)
[2017-08-17] MEDS: OXYCODONE HCL IR 5 MG TABLET PO PRN ×2 (05:55→20:20)
[2017-08-17] MEDS: GLIPIZIDE 5 MG TABLET PO SCH ×2 (07:50→16:59)
[2017-08-17] MEDS: INSULIN LISPRO 100 UNIT/ML 3 ML VIAL SUBCUT PRN ×2 (07:50→22:59)
--- NOTE | 2017-08-17 08:53 | PDOC PROGRESS REPORT ---
Subjective Progress Note for:: 08/17/17 Reason For Visit: SHOULDER FX 62-year-old white male status post open reduction internal fixation of a left subtrochanteric femur fracture and nonoperative therapy for glenoid fracture. Patient is very pain averse and this limits his postoperative rehabilitation. Physical Exam Vital Signs: Temp Pulse Resp BP Pulse Ox 37.3 C 81 16 143/63 H 96 08/17/17 07:46 08/17/17 07:46 08/17/17 07:46 08/17/17 07:46 08/17/17 07:46 Intake & Output 08/16/17 08/17/17 08/18/17 06:59 06:59 06:59 Intake Total 2670 3777 Output Total 800 1125 Balance 1870 2652 Weight 114 kg 114 kg General appearance: PRESENT: mild distress Head exam: PRESENT: normocephalic Respiratory exam: PRESENT: unlabored Cardiovascular exam: PRESENT: RRR Pulses: PRESENT: +1 pedal pulses bilateral GI/Abdominal exam: PRESENT: soft Rectal exam: PRESENT: deferred Extremities exam: PRESENT: other - Left leg dressing change today. There is some serous drainage. Wound is well approximated with linda. There is no erythema. Musculoskeletal exam: PRESENT: other - Leg lengths are equal. Distal neurovascular examination is intact. Neurological exam: PRESENT: alert, awake, oriented to person, oriented to place , oriented to time, oriented to situation. ABSENT: motor sensory deficit Psychiatric exam: PRESENT: agitated, appropriate affect, normal mood. ABSENT: homicidal ideation, suicidal ideation Skin exam: PRESENT: dry, intact, warm, other - Considerable induration in the left thigh. ABSENT: cyanosis, rash Results Laboratory Results: 08/16/17 06:06 08/16/17 06:06 Impressions: Chest X-Ray 08/11/17 02:07 IMPRESSION: Mild cardiomegaly. Mild bibasilar atelectasis. Small left pleural effusion. Shoulder X-Ray 08/11/17 02:07 IMPRESSION: Mildly displaced intra-articular fracture at the left glenoid. Femur X-Ray 08/11/17 02:55 IMPRESSION: Displaced, spiral fracture at the proximal left femur extending through the lesser trochanter. Fluoroscopy 08/13/17 00:00 IMPRESSION: Please see combined report for performance of procedure and radiologic supervision and interpretation. Hip X-Ray 08/13/17 00:00 IMPRESSION: IMAGE(S) OBTAINED DURING PROCEDURE. Status: Imported from PACS Assessment & Plan - Diagnosis (1) Cardiomegaly Is this a current diagnosis for this admission?: Yes (2) Closed fracture of glenoid cavity of left scapula Qualifiers: Encounter type: initial encounter Fracture alignment: displaced Qualified Code(s): S42.142A - Displaced fracture of glenoid cavity of scapula, left shoulder, initial encounter for closed fracture Is this a current diagnosis for this admission?: Yes (3) Left femoral shaft fracture Qualifiers: Encounter type: subsequent encounter Fracture type: closed Fracture morphology: spiral Fracture alignment: displaced Is this a current diagnosis for this admission?: Yes Plan: Mobilized with physical therapy and anticipate the need for snf facility placement. (4) Postoperative anemia due to acute blood loss Is this a current diagnosis for this admission?: Yes
[2017-08-17] MEDS: LISINOPRIL 10 MG TABLET PO SCH (09:42)
[2017-08-17] MEDS: ARIPIPRAZOLE 5 MG TABLET PO SCH (09:43)
[2017-08-17] MEDS: PIOGLITAZONE HCL 15 MG TABLET PO SCH ×2 (09:43→17:00)
[2017-08-17] MEDS: FAMOTIDINE INJ/PF 20 MG/2 ML SDV IV SCH ×2 (09:43→22:59)
[2017-08-17] MEDS: ASPIRIN 81 MG TABLET, ENT COATED PO SCH (09:43)
[2017-08-17] MEDS: BUPROPION HCL 75 MG TABLET PO SCH ×2 (09:44→22:59)
[2017-08-17] MEDS: DOCUSATE SODIUM 100 MG CAPSULE PO SCH ×2 (09:44→17:01)
--- NOTE | 2017-08-17 17:30 | PDOC PROGRESS REPORT ---
Subjective Progress Note for:: 08/17/17 Subjective:: Patient is alert seen by the bedside Reason For Visit: SHOULDER FX Physical Exam Vital Signs: Temp Pulse Resp BP Pulse Ox 98.7 F 85 16 149/70 H 99 08/17/17 15:18 08/17/17 15:18 08/17/17 15:18 08/17/17 15:18 08/17/17 15:18 Intake & Output 08/16/17 08/17/17 08/18/17 06:59 06:59 06:59 Intake Total 2670 3777 Output Total 800 1125 Balance 1870 2652 Weight 114 kg 114 kg General appearance: PRESENT: no acute distress Eye exam: PRESENT: PERRLA Respiratory exam: PRESENT: clear to auscultation evan Cardiovascular exam: PRESENT: +S1, +S2 GI/Abdominal exam: PRESENT: soft Results Laboratory Results: 08/16/17 06:06 08/16/17 06:06 Impressions: Chest X-Ray 08/11/17 02:07 IMPRESSION: Mild cardiomegaly. Mild bibasilar atelectasis. Small left pleural effusion. Shoulder X-Ray 08/11/17 02:07 IMPRESSION: Mildly displaced intra-articular fracture at the left glenoid. Femur X-Ray 08/11/17 02:55 IMPRESSION: Displaced, spiral fracture at the proximal left femur extending through the lesser trochanter. Fluoroscopy 08/13/17 00:00 IMPRESSION: Please see combined report for performance of procedure and radiologic supervision and interpretation. Hip X-Ray 08/13/17 00:00 IMPRESSION: IMAGE(S) OBTAINED DURING PROCEDURE. Assessment & Plan - Diagnosis (1) Left femoral shaft fracture Qualifiers: Encounter type: subsequent encounter Fracture type: closed Fracture morphology: spiral Fracture alignment: displaced Is this a current diagnosis for this admission?: Yes (2) Closed fracture of glenoid cavity of left scapula Qualifiers: Encounter type: initial encounter Fracture alignment: displaced Qualified Code(s): S42.142A - Displaced fracture of glenoid cavity of scapula, left shoulder, initial encounter for closed fracture Is this a current diagnosis for this admission?: Yes (3) Type 2 diabetes mellitus Qualifiers: Diabetes mellitus complication status: without complication Is this a current diagnosis for this admission?: Yes (4) Hypertension Qualifiers: Hypertension type: essential hypertension Qualified Code(s): I10 - Essential (primary) hypertension Is this a current diagnosis for this admission?: Yes (5) Preoperative cardiovascular examination Is this a current diagnosis for this admission?: Yes
[2017-08-17] MEDS: INSULIN GLARGINE,HUM.REC.ANLOG 300 UNIT/3 ML INSULN.PEN SUBCUT SCH (22:59)
[2017-08-17] MEDS: ATORVASTATIN CALCIUM 40 MG TABLET PO SCH (22:59)
[2017-08-18] MEDS: HYDROMORPHONE HCL INJ/PF 2 MG/ML AMPULE IV PRN (02:18)
[2017-08-18] MEDS: BUPROPION HCL 75 MG TABLET PO SCH ×2 (09:13→21:47)
[2017-08-18] MEDS: LISINOPRIL 10 MG TABLET PO SCH (09:13)
[2017-08-18] MEDS: DOCUSATE SODIUM 100 MG CAPSULE PO SCH ×2 (09:15→17:51)
[2017-08-18] MEDS: GLIPIZIDE 5 MG TABLET PO SCH ×2 (09:15→17:51)
[2017-08-18] MEDS: PIOGLITAZONE HCL 15 MG TABLET PO SCH ×2 (09:15→17:51)
[2017-08-18] MEDS: ASPIRIN 81 MG TABLET, ENT COATED PO SCH (09:16)
[2017-08-18] MEDS: FAMOTIDINE INJ/PF 20 MG/2 ML SDV IV SCH ×2 (09:16→21:47)
[2017-08-18] MEDS: ARIPIPRAZOLE 5 MG TABLET PO SCH (09:16)
[2017-08-18] MEDS: INSULIN LISPRO 100 UNIT/ML 3 ML VIAL SUBCUT PRN (17:51)
[2017-08-18] MEDS: OXYCODONE HCL IR 5 MG TABLET PO PRN (18:09)
[2017-08-18] MEDS: INSULIN GLARGINE,HUM.REC.ANLOG 300 UNIT/3 ML INSULN.PEN SUBCUT SCH (21:47)
[2017-08-18] MEDS: ATORVASTATIN CALCIUM 40 MG TABLET PO SCH (21:47)
--- NOTE | 2017-08-18 21:52 | PDOC PROGRESS REPORT ---
Subjective Progress Note for:: 08/18/17 Subjective:: Patient continues to decline physical therapy which is a requirement for longterm placement, he came from assisted living facility Reason For Visit: SHOULDER FX Physical Exam Vital Signs: Temp Pulse Resp BP Pulse Ox 97.7 F 85 20 151/64 H 96 08/18/17 09:00 08/18/17 19:00 08/18/17 09:00 08/18/17 09:00 08/18/17 09:00 Intake & Output 08/17/17 08/18/17 08/19/17 06:59 06:59 06:59 Intake Total 3777 2954 444 Output Total 1125 1750 400 Balance 2652 1204 44 Weight 114 kg General appearance: PRESENT: no acute distress Eye exam: PRESENT: PERRLA Respiratory exam: PRESENT: clear to auscultation evan Cardiovascular exam: PRESENT: +S1, +S2 GI/Abdominal exam: PRESENT: soft Neurological exam: PRESENT: alert, CN II-XII grossly intact Results Laboratory Results: 08/16/17 06:06 08/16/17 06:06 Impressions: Chest X-Ray 08/11/17 02:07 IMPRESSION: Mild cardiomegaly. Mild bibasilar atelectasis. Small left pleural effusion. Shoulder X-Ray 08/11/17 02:07 IMPRESSION: Mildly displaced intra-articular fracture at the left glenoid. Femur X-Ray 08/11/17 02:55 IMPRESSION: Displaced, spiral fracture at the proximal left femur extending through the lesser trochanter. Fluoroscopy 08/13/17 00:00 IMPRESSION: Please see combined report for performance of procedure and radiologic supervision and interpretation. Hip X-Ray 08/13/17 00:00 IMPRESSION: IMAGE(S) OBTAINED DURING PROCEDURE. Assessment & Plan - Diagnosis (1) Left femoral shaft fracture Qualifiers: Encounter type: subsequent encounter Fracture type: closed Fracture morphology: spiral Fracture alignment: displaced Is this a current diagnosis for this admission?: Yes (2) Closed fracture of glenoid cavity of left scapula Qualifiers: Encounter type: initial encounter Fracture alignment: displaced Qualified Code(s): S42.142A - Displaced fracture of glenoid cavity of scapula, left shoulder, initial encounter for closed fracture Is this a current diagnosis for this admission?: Yes (3) Type 2 diabetes mellitus Qualifiers: Diabetes mellitus complication status: without complication Is this a current diagnosis for this admission?: Yes (4) Hypertension Qualifiers: Hypertension type: essential hypertension Qualified Code(s): I10 - Essential (primary) hypertension Is this a current diagnosis for this admission?: Yes (5) Preoperative cardiovascular examination Is this a current diagnosis for this admission?: Yes
[2017-08-19] MEDS: OXYCODONE HCL IR 5 MG TABLET PO PRN ×4 (01:25→22:40)
--- NOTE | 2017-08-19 07:12 | PDOC PROGRESS REPORT ---
Subjective Progress Note for:: 08/19/17 Reason For Visit: SHOULDER FX 62-year-old white male resident formerly [facility] now postop day 6 from an open reduction internal fixation of a left proximal femur fracture and nonoperative treatment for a glenoid fracture. Patient continues to complain of pain and has declined to participate in physical therapy because of his concern about pain. Physical Exam Vital Signs: Temp Pulse Resp BP Pulse Ox 36.9 C 75 18 132/69 H 99 08/19/17 04:00 08/19/17 04:00 08/19/17 04:00 08/19/17 04:00 08/19/17 04:00 Intake & Output 08/18/17 08/19/17 08/20/17 06:59 06:59 06:59 Intake Total 2954 890 Output Total 1750 1230 Balance 1204 -340 Weight 109.8 kg General appearance: PRESENT: mild distress Head exam: PRESENT: normocephalic Respiratory exam: PRESENT: unlabored Cardiovascular exam: PRESENT: RRR Pulses: PRESENT: +1 pedal pulses bilateral GI/Abdominal exam: PRESENT: soft Rectal exam: PRESENT: deferred Extremities exam: PRESENT: other - Left hip dressing with a scant amount of serous drainage. There continues to be a fair amount of induration in the left thigh. Distal neurovascular examination is intact. Neurological exam: PRESENT: alert, awake, oriented to person, oriented to place , oriented to time, oriented to situation. ABSENT: motor sensory deficit Psychiatric exam: PRESENT: appropriate affect, normal mood. ABSENT: homicidal ideation, suicidal ideation Skin exam: PRESENT: dry, intact, warm. ABSENT: cyanosis, rash Results Laboratory Results: 08/16/17 06:06 08/16/17 06:06 Impressions: Chest X-Ray 08/11/17 02:07 IMPRESSION: Mild cardiomegaly. Mild bibasilar atelectasis. Small left pleural effusion. Shoulder X-Ray 08/11/17 02:07 IMPRESSION: Mildly displaced intra-articular fracture at the left glenoid. Femur X-Ray 08/11/17 02:55 IMPRESSION: Displaced, spiral fracture at the proximal left femur extending through the lesser trochanter. Fluoroscopy 08/13/17 00:00 IMPRESSION: Please see combined report for performance of procedure and radiologic supervision and interpretation. Hip X-Ray 08/13/17 00:00 IMPRESSION: IMAGE(S) OBTAINED DURING PROCEDURE. Status: Imported from PACS Assessment & Plan - Diagnosis (1) Cardiomegaly Is this a current diagnosis for this admission?: Yes (2) Closed fracture of glenoid cavity of left scapula Qualifiers: Encounter type: initial encounter Fracture alignment: displaced Qualified Code(s): S42.142A - Displaced fracture of glenoid cavity of scapula, left shoulder, initial encounter for closed fracture Is this a current diagnosis for this admission?: Yes (3) Left femoral shaft fracture Qualifiers: Encounter type: subsequent encounter Fracture type: closed Fracture morphology: spiral Fracture alignment: displaced Is this a current diagnosis for this admission?: Yes Plan: 62-year-old status post ORIF left subtrochanteric femur fracture. Patient has made minimal progress with physical therapy and yesterday declined any attempted participation because of his concern about pain. I think in light of this it probably would be best of the patient was discharged to a detention facility (4) Postoperative anemia due to acute blood loss Is this a current diagnosis for this admission?: Yes
[2017-08-19] MEDS: INSULIN LISPRO 100 UNIT/ML 3 ML VIAL SUBCUT PRN ×4 (08:43→21:35)
[2017-08-19] MEDS: GLIPIZIDE 5 MG TABLET PO SCH ×2 (08:43→16:50)
[2017-08-19] MEDS: LISINOPRIL 10 MG TABLET PO SCH (09:42)
[2017-08-19] MEDS: BUPROPION HCL 75 MG TABLET PO SCH ×2 (09:42→21:35)
[2017-08-19] MEDS: DOCUSATE SODIUM 100 MG CAPSULE PO SCH ×2 (09:43→17:04)
[2017-08-19] MEDS: PIOGLITAZONE HCL 15 MG TABLET PO SCH ×2 (09:43→17:04)
[2017-08-19] MEDS: ASPIRIN 81 MG TABLET, ENT COATED PO SCH (09:43)
[2017-08-19] MEDS: ARIPIPRAZOLE 5 MG TABLET PO SCH (09:43)
[2017-08-19] MEDS: FAMOTIDINE INJ/PF 20 MG/2 ML SDV IV SCH ×2 (09:44→21:35)
--- NOTE | 2017-08-19 21:14 | PDOC PROGRESS REPORT ---
Subjective Progress Note for:: 08/19/17 Subjective:: Patient continues to decline physical therapy which is a requirement for group home placement, he came from assisted living facility Reason For Visit: SHOULDER FX Physical Exam Vital Signs: Temp Pulse Resp BP Pulse Ox 98.6 F 83 20 138/70 H 98 08/19/17 15:26 08/19/17 15:26 08/19/17 15:26 08/19/17 15:26 08/19/17 15:26 Intake & Output 08/18/17 08/19/17 08/20/17 06:59 06:59 06:59 Intake Total 2954 890 560 Output Total 1750 1230 650 Balance 1204 -340 -90 Weight 109.8 kg General appearance: PRESENT: no acute distress Eye exam: PRESENT: PERRLA Respiratory exam: PRESENT: clear to auscultation evan Cardiovascular exam: PRESENT: +S1, +S2 GI/Abdominal exam: PRESENT: soft Neurological exam: PRESENT: alert Results Laboratory Results: 08/16/17 06:06 08/16/17 06:06 Impressions: Chest X-Ray 08/11/17 02:07 IMPRESSION: Mild cardiomegaly. Mild bibasilar atelectasis. Small left pleural effusion. Shoulder X-Ray 08/11/17 02:07 IMPRESSION: Mildly displaced intra-articular fracture at the left glenoid. Femur X-Ray 08/11/17 02:55 IMPRESSION: Displaced, spiral fracture at the proximal left femur extending through the lesser trochanter. Fluoroscopy 08/13/17 00:00 IMPRESSION: Please see combined report for performance of procedure and radiologic supervision and interpretation. Hip X-Ray 08/13/17 00:00 IMPRESSION: IMAGE(S) OBTAINED DURING PROCEDURE. Assessment & Plan - Diagnosis (1) Left femoral shaft fracture Qualifiers: Encounter type: subsequent encounter Fracture type: closed Fracture morphology: spiral Fracture alignment: displaced Is this a current diagnosis for this admission?: Yes (2) Closed fracture of glenoid cavity of left scapula Qualifiers: Encounter type: initial encounter Fracture alignment: displaced Qualified Code(s): S42.142A - Displaced fracture of glenoid cavity of scapula, left shoulder, initial encounter for closed fracture Is this a current diagnosis for this admission?: Yes (3) Type 2 diabetes mellitus Qualifiers: Diabetes mellitus complication status: without complication Is this a current diagnosis for this admission?: Yes (4) Hypertension Qualifiers: Hypertension type: essential hypertension Qualified Code(s): I10 - Essential (primary) hypertension Is this a current diagnosis for this admission?: Yes (5) Preoperative cardiovascular examination Is this a current diagnosis for this admission?: Yes
[2017-08-19] MEDS: ATORVASTATIN CALCIUM 40 MG TABLET PO SCH (21:35)
[2017-08-19] MEDS: INSULIN GLARGINE,HUM.REC.ANLOG 300 UNIT/3 ML INSULN.PEN SUBCUT SCH (21:35)
[2017-08-20] MEDS: GLIPIZIDE 5 MG TABLET PO SCH ×2 (08:25→16:52)
--- NOTE | 2017-08-20 09:16 | PDOC PROGRESS REPORT ---
Subjective Progress Note for:: 08/20/17 Reason For Visit: SHOULDER FX 62-year-old white male with a left glenoid fracture and a left subtrochanteric femur fracture now postop day 7 from open reduction internal fixation of the femur fracture. Patient's declined physical therapy because of concerns of pain since the time of the surgery. Physical Exam Vital Signs: Temp Pulse Resp BP Pulse Ox 36.8 C 82 20 134/63 H 95 08/20/17 08:15 08/20/17 08:15 08/20/17 08:15 08/20/17 08:15 08/20/17 08:15 Intake & Output 08/19/17 08/20/17 08/21/17 06:59 06:59 06:59 Intake Total 890 880 Output Total 1230 1075 Balance -340 -195 Weight 109.8 kg 109.3 kg General appearance: PRESENT: mild distress Respiratory exam: PRESENT: unlabored Cardiovascular exam: PRESENT: RRR Pulses: PRESENT: +1 pedal pulses bilateral Vascular exam: PRESENT: normal capillary refill Musculoskeletal exam: PRESENT: other - Left thigh dressing with minor serous drainage. Distal neurovascular examination is intact. Minor to moderate thigh induration continues. Minor pedal edema is present. Neurological exam: PRESENT: alert, awake, oriented to person, oriented to place , oriented to time, oriented to situation. ABSENT: motor sensory deficit Skin exam: PRESENT: dry, intact, warm. ABSENT: cyanosis, rash Results Laboratory Results: 08/16/17 06:06 08/16/17 06:06 Impressions: Chest X-Ray 08/11/17 02:07 IMPRESSION: Mild cardiomegaly. Mild bibasilar atelectasis. Small left pleural effusion. Shoulder X-Ray 08/11/17 02:07 IMPRESSION: Mildly displaced intra-articular fracture at the left glenoid. Femur X-Ray 08/11/17 02:55 IMPRESSION: Displaced, spiral fracture at the proximal left femur extending through the lesser trochanter. Fluoroscopy 08/13/17 00:00 IMPRESSION: Please see combined report for performance of procedure and radiologic supervision and interpretation. Hip X-Ray 08/13/17 00:00 IMPRESSION: IMAGE(S) OBTAINED DURING PROCEDURE. Status: Imported from PACS Assessment & Plan - Diagnosis (1) Cardiomegaly Is this a current diagnosis for this admission?: Yes (2) Closed fracture of glenoid cavity of left scapula Qualifiers: Encounter type: initial encounter Fracture alignment: displaced Qualified Code(s): S42.142A - Displaced fracture of glenoid cavity of scapula, left shoulder, initial encounter for closed fracture Is this a current diagnosis for this admission?: Yes Plan: Being treated nonoperatively (3) Left femoral shaft fracture Qualifiers: Encounter type: subsequent encounter Fracture type: closed Fracture morphology: spiral Fracture alignment: displaced Is this a current diagnosis for this admission?: Yes Plan: Patient has refused physical therapy so far. (4) Postoperative anemia due to acute blood loss Is this a current diagnosis for this admission?: Yes - Plan Summary Plan Summary: Patient has refused physical therapy so far and physical therapy has signed off. At this point is probably appropriate for [facility] facility placement.
[2017-08-20] MEDS: ARIPIPRAZOLE 5 MG TABLET PO SCH (09:51)
[2017-08-20] MEDS: ASPIRIN 81 MG TABLET, ENT COATED PO SCH (09:51)
[2017-08-20] MEDS: BUPROPION HCL 75 MG TABLET PO SCH ×2 (09:52→21:38)
[2017-08-20] MEDS: LISINOPRIL 10 MG TABLET PO SCH (09:52)
[2017-08-20] MEDS: DOCUSATE SODIUM 100 MG CAPSULE PO SCH ×2 (09:52→16:53)
[2017-08-20] MEDS: PIOGLITAZONE HCL 15 MG TABLET PO SCH ×2 (09:52→16:53)
[2017-08-20] MEDS: FAMOTIDINE INJ/PF 20 MG/2 ML SDV IV SCH ×2 (09:53→21:40)
[2017-08-20] MEDS: INSULIN LISPRO 100 UNIT/ML 3 ML VIAL SUBCUT PRN ×4 (10:02→21:38)
[2017-08-20] MEDS: OXYCODONE HCL IR 5 MG TABLET PO PRN (13:46)
--- NOTE | 2017-08-20 18:31 | PDOC PROGRESS REPORT ---
Subjective Progress Note for:: 08/20/17 Subjective:: There is no new complaints Reason For Visit: SHOULDER FX Physical Exam Vital Signs: Temp Pulse Resp BP Pulse Ox 98.7 F 92 15 132/71 H 96 08/20/17 16:00 08/20/17 16:00 08/20/17 16:00 08/20/17 16:00 08/20/17 16:00 Intake & Output 08/19/17 08/20/17 08/21/17 06:59 06:59 06:59 Intake Total 890 880 870 Output Total 1230 1075 1000 Balance -340 -195 -130 Weight 109.8 kg 109.3 kg General appearance: PRESENT: no acute distress Eye exam: PRESENT: PERRLA Respiratory exam: PRESENT: clear to auscultation evan Cardiovascular exam: PRESENT: +S1, +S2 GI/Abdominal exam: PRESENT: soft Results Laboratory Results: 08/16/17 06:06 08/16/17 06:06 Impressions: Chest X-Ray 08/11/17 02:07 IMPRESSION: Mild cardiomegaly. Mild bibasilar atelectasis. Small left pleural effusion. Shoulder X-Ray 08/11/17 02:07 IMPRESSION: Mildly displaced intra-articular fracture at the left glenoid. Femur X-Ray 08/11/17 02:55 IMPRESSION: Displaced, spiral fracture at the proximal left femur extending through the lesser trochanter. Fluoroscopy 08/13/17 00:00 IMPRESSION: Please see combined report for performance of procedure and radiologic supervision and interpretation. Hip X-Ray 08/13/17 00:00 IMPRESSION: IMAGE(S) OBTAINED DURING PROCEDURE. Assessment & Plan - Diagnosis (1) Left femoral shaft fracture Qualifiers: Encounter type: subsequent encounter Fracture type: closed Fracture morphology: spiral Fracture alignment: displaced Is this a current diagnosis for this admission?: Yes (2) Closed fracture of glenoid cavity of left scapula Qualifiers: Encounter type: initial encounter Fracture alignment: displaced Qualified Code(s): S42.142A - Displaced fracture of glenoid cavity of scapula, left shoulder, initial encounter for closed fracture Is this a current diagnosis for this admission?: Yes (3) Type 2 diabetes mellitus Qualifiers: Diabetes mellitus complication status: without complication Is this a current diagnosis for this admission?: Yes (4) Hypertension Qualifiers: Hypertension type: essential hypertension Qualified Code(s): I10 - Essential (primary) hypertension Is this a current diagnosis for this admission?: Yes (5) Preoperative cardiovascular examination Is this a current diagnosis for this admission?: Yes
[2017-08-20] MEDS: ATORVASTATIN CALCIUM 40 MG TABLET PO SCH (21:38)
[2017-08-20] MEDS: INSULIN GLARGINE,HUM.REC.ANLOG 300 UNIT/3 ML INSULN.PEN SUBCUT SCH (21:38)
[2017-08-20] MEDS: ACETAMINOPHEN 325 MG TABLET PO PRN (22:50)
[2017-08-21] MEDS: ACETAMINOPHEN 325 MG TABLET PO PRN ×3 (02:16→19:51)
[2017-08-21] MEDS: TRAZODONE HCL 50 MG TABLET PO PRN ×2 (02:17→21:29)
--- NOTE | 2017-08-21 07:09 | PDOC PROGRESS REPORT ---
Subjective Progress Note for:: 08/21/17 Subjective:: 62-year-old male status post open reduction internal fixation for left femoral shaft fracture. Patient remains in the hospitalist he is awaiting [facility] facility placement. Reason For Visit: SHOULDER FX Physical Exam Vital Signs: Temp Pulse Resp BP Pulse Ox 36.8 C 72 16 141/60 H 94 08/21/17 03:25 08/21/17 03:25 08/21/17 03:25 08/21/17 03:25 08/21/17 03:25 Intake & Output 08/20/17 08/21/17 08/22/17 06:59 06:59 06:59 Intake Total 880 1110 Output Total 1075 1550 Balance -195 -440 Weight 109.3 kg 107.7 kg Physical Exam: Physical exam grossly unchanged from previous exam completed on August 20, 2017. General appearance: PRESENT: no acute distress, well-developed, well-nourished Head exam: PRESENT: atraumatic, normocephalic Respiratory exam: PRESENT: unlabored Pulses: PRESENT: normal dorsalis pedis pul, +2 pedal pulses bilateral Vascular exam: PRESENT: normal capillary refill Additional comments: Lengths equal distal neurovascular exam intact brisk capillary refill to bilateral lower extremities. Musculoskeletal exam: PRESENT: ambulatory Neurological exam: PRESENT: alert, awake, oriented to person, oriented to place , oriented to time, oriented to situation, CN II-XII grossly intact. ABSENT: motor sensory deficit Psychiatric exam: PRESENT: appropriate affect, normal mood. ABSENT: homicidal ideation, suicidal ideation Skin exam: PRESENT: dry, intact, warm. ABSENT: cyanosis, rash Results Laboratory Results: 08/16/17 06:06 08/16/17 06:06 Impressions: Chest X-Ray 08/11/17 02:07 IMPRESSION: Mild cardiomegaly. Mild bibasilar atelectasis. Small left pleural effusion. Shoulder X-Ray 08/11/17 02:07 IMPRESSION: Mildly displaced intra-articular fracture at the left glenoid. Femur X-Ray 08/11/17 02:55 IMPRESSION: Displaced, spiral fracture at the proximal left femur extending through the lesser trochanter. Fluoroscopy 08/13/17 00:00 IMPRESSION: Please see combined report for performance of procedure and radiologic supervision and interpretation. Hip X-Ray 08/13/17 00:00 IMPRESSION: IMAGE(S) OBTAINED DURING PROCEDURE. Assessment & Plan - Diagnosis (1) Left femoral shaft fracture Qualifiers: Encounter type: subsequent encounter Fracture type: closed Fracture morphology: spiral Fracture alignment: displaced Is this a current diagnosis for this admission?: Yes - Plan Summary Plan Summary: 62-year-old white male status post open reduction internal fixation for left femoral shaft fracture. Patient remains in the hospital as he has not yet attained placement at a jail facility. Once placement is obtained he will be discharged and continue to work with physical therapy services provided to improve strength range of motion of left lower extremity.
[2017-08-21] MEDS: LISINOPRIL 10 MG TABLET PO SCH (09:35)
[2017-08-21] MEDS: DOCUSATE SODIUM 100 MG CAPSULE PO SCH ×2 (09:35→17:28)
[2017-08-21] MEDS: ASPIRIN 81 MG TABLET, ENT COATED PO SCH (09:36)
[2017-08-21] MEDS: PIOGLITAZONE HCL 15 MG TABLET PO SCH ×2 (09:36→17:28)
[2017-08-21] MEDS: ARIPIPRAZOLE 5 MG TABLET PO SCH (09:36)
[2017-08-21] MEDS: GLIPIZIDE 5 MG TABLET PO SCH ×2 (09:36→17:28)
[2017-08-21] MEDS: BUPROPION HCL 75 MG TABLET PO SCH ×2 (09:36→21:29)
[2017-08-21] MEDS: FAMOTIDINE INJ/PF 20 MG/2 ML SDV IV SCH ×2 (09:37→21:29)
[2017-08-21] MEDS: INSULIN LISPRO 100 UNIT/ML 3 ML VIAL SUBCUT PRN ×3 (11:24→21:26)
--- NOTE | 2017-08-21 20:56 | PDOC PROGRESS REPORT ---
Subjective Progress Note for:: 08/21/17 Subjective:: Patient is ready for discharge discharge planning is making arrangement for senior living placement for rehabilitation Reason For Visit: SHOULDER FX Physical Exam Vital Signs: Temp Pulse Resp BP Pulse Ox 98.2 F 99 16 141/64 H 94 08/21/17 15:39 08/21/17 19:00 08/21/17 15:39 08/21/17 15:39 08/21/17 15:39 Intake & Output 08/20/17 08/21/17 08/22/17 06:59 06:59 06:59 Intake Total 880 1110 450 Output Total 1075 1550 550 Balance -195 -440 -100 Weight 109.3 kg 107.7 kg General appearance: PRESENT: no acute distress, well-developed, well-nourished Head exam: PRESENT: atraumatic, normocephalic Eye exam: PRESENT: conjunctiva pink, EOMI, PERRLA Ear exam: PRESENT: normal external ear exam Mouth exam: PRESENT: moist, tongue midline Neck exam: PRESENT: full ROM Respiratory exam: PRESENT: clear to auscultation evan Cardiovascular exam: PRESENT: RRR, +S1, +S2 Pulses: PRESENT: normal dorsalis pedis pul, +2 pedal pulses bilateral Vascular exam: PRESENT: normal capillary refill GI/Abdominal exam: PRESENT: normal bowel sounds, soft Rectal exam: PRESENT: deferred Neurological exam: PRESENT: alert. ABSENT: motor sensory deficit Psychiatric exam: PRESENT: appropriate affect, normal mood. ABSENT: homicidal ideation, suicidal ideation Skin exam: PRESENT: dry, intact, warm. ABSENT: cyanosis, rash Results Laboratory Results: 08/16/17 06:06 08/16/17 06:06 Impressions: Chest X-Ray 08/11/17 02:07 IMPRESSION: Mild cardiomegaly. Mild bibasilar atelectasis. Small left pleural effusion. Shoulder X-Ray 08/11/17 02:07 IMPRESSION: Mildly displaced intra-articular fracture at the left glenoid. Femur X-Ray 08/11/17 02:55 IMPRESSION: Displaced, spiral fracture at the proximal left femur extending through the lesser trochanter. Fluoroscopy 08/13/17 00:00 IMPRESSION: Please see combined report for performance of procedure and radiologic supervision and interpretation. Hip X-Ray 08/13/17 00:00 IMPRESSION: IMAGE(S) OBTAINED DURING PROCEDURE. Assessment & Plan - Diagnosis (1) Left femoral shaft fracture Qualifiers: Encounter type: subsequent encounter Fracture type: closed Fracture morphology: spiral Fracture alignment: displaced Is this a current diagnosis for this admission?: Yes (2) Closed fracture of glenoid cavity of left scapula Qualifiers: Encounter type: initial encounter Fracture alignment: displaced Qualified Code(s): S42.142A - Displaced fracture of glenoid cavity of scapula, left shoulder, initial encounter for closed fracture Is this a current diagnosis for this admission?: Yes (3) Type 2 diabetes mellitus Qualifiers: Diabetes mellitus complication status: without complication Is this a current diagnosis for this admission?: Yes (4) Hypertension Qualifiers: Hypertension type: essential hypertension Qualified Code(s): I10 - Essential (primary) hypertension Is this a current diagnosis for this admission?: Yes (5) Preoperative cardiovascular examination Is this a current diagnosis for this admission?: Yes
[2017-08-21] MEDS: INSULIN GLARGINE,HUM.REC.ANLOG 300 UNIT/3 ML INSULN.PEN SUBCUT SCH (21:25)
[2017-08-21] MEDS: ATORVASTATIN CALCIUM 40 MG TABLET PO SCH (21:29)
[2017-08-22] MEDS: ACETAMINOPHEN 325 MG TABLET PO PRN ×2 (00:15→19:59)
--- NOTE | 2017-08-22 06:49 | PDOC PROGRESS REPORT ---
Subjective Progress Note for:: 08/22/17 Reason For Visit: SHOULDER FX 62-year-old white male postop day 7 status post open reduction internal fixation of a left subtrochanteric femur fracture and nonoperative therapy for left glenoid fracture. The patient remains relatively bedbound. He has been discharged from physical therapy because of a lack of effort and cooperation. Physical Exam Vital Signs: Temp Pulse Resp BP Pulse Ox 36.8 C 91 18 137/63 H 94 08/22/17 00:13 08/22/17 02:00 08/22/17 00:13 08/22/17 00:13 08/22/17 00:13 Intake & Output 08/20/17 08/21/17 08/22/17 06:59 06:59 06:59 Intake Total 880 1110 770 Output Total 1075 1550 1440 Balance -195 -440 -670 Weight 109.3 kg 107.7 kg 106.3 kg General appearance: PRESENT: no acute distress Head exam: PRESENT: normocephalic Respiratory exam: PRESENT: unlabored Cardiovascular exam: PRESENT: RRR Pulses: PRESENT: +1 pedal pulses bilateral Vascular exam: PRESENT: normal capillary refill GI/Abdominal exam: PRESENT: soft Rectal exam: PRESENT: deferred Extremities exam: PRESENT: other - Left femur dressings clean dry and intact. Leg lengths are equal. Distal neurovascular examination is intact. Neurological exam: PRESENT: alert, awake, oriented to person, oriented to place , oriented to time, oriented to situation Psychiatric exam: PRESENT: flat affect Skin exam: PRESENT: dry, intact, warm. ABSENT: cyanosis, rash Results Laboratory Results: 08/16/17 06:06 08/16/17 06:06 Impressions: Chest X-Ray 08/11/17 02:07 IMPRESSION: Mild cardiomegaly. Mild bibasilar atelectasis. Small left pleural effusion. Shoulder X-Ray 08/11/17 02:07 IMPRESSION: Mildly displaced intra-articular fracture at the left glenoid. Femur X-Ray 08/11/17 02:55 IMPRESSION: Displaced, spiral fracture at the proximal left femur extending through the lesser trochanter. Fluoroscopy 08/13/17 00:00 IMPRESSION: Please see combined report for performance of procedure and radiologic supervision and interpretation. Hip X-Ray 08/13/17 00:00 IMPRESSION: IMAGE(S) OBTAINED DURING PROCEDURE. Status: Imported from PACS Assessment & Plan - Diagnosis (1) Cardiomegaly Is this a current diagnosis for this admission?: Yes Plan: Stable (2) Closed fracture of glenoid cavity of left scapula Qualifiers: Encounter type: initial encounter Fracture alignment: displaced Qualified Code(s): S42.142A - Displaced fracture of glenoid cavity of scapula, left shoulder, initial encounter for closed fracture Is this a current diagnosis for this admission?: Yes Plan: Stable (3) Left femoral shaft fracture Qualifiers: Encounter type: subsequent encounter Fracture type: closed Fracture morphology: spiral Fracture alignment: displaced Is this a current diagnosis for this admission?: Yes Plan: Patient remains relatively bedbound and has refused first physical therapy for mobilization. We are now awaiting residential facility placement. (4) Postoperative anemia due to acute blood loss Is this a current diagnosis for this admission?: Yes Plan: Resolved
[2017-08-22] MEDS: GLIPIZIDE 5 MG TABLET PO SCH ×2 (08:09→17:19)
[2017-08-22] MEDS: INSULIN LISPRO 100 UNIT/ML 3 ML VIAL SUBCUT PRN ×4 (08:10→22:26)
[2017-08-22] MEDS: ARIPIPRAZOLE 5 MG TABLET PO SCH (09:36)
[2017-08-22] MEDS: LISINOPRIL 10 MG TABLET PO SCH (09:36)
[2017-08-22] MEDS: ASPIRIN 81 MG TABLET, ENT COATED PO SCH (09:36)
[2017-08-22] MEDS: DOCUSATE SODIUM 100 MG CAPSULE PO SCH ×2 (09:36→17:20)
[2017-08-22] MEDS: BUPROPION HCL 75 MG TABLET PO SCH ×2 (09:36→22:24)
[2017-08-22] MEDS: PIOGLITAZONE HCL 15 MG TABLET PO SCH ×2 (09:37→17:19)
[2017-08-22] MEDS: FAMOTIDINE INJ/PF 20 MG/2 ML SDV IV SCH ×2 (09:37→22:25)
--- NOTE | 2017-08-22 21:08 | PDOC PROGRESS REPORT ---
Subjective Progress Note for:: 08/22/17 Subjective:: It is getting difficult for discharge planning to get placement for this patient for rehabilitation Reason For Visit: SHOULDER FX Physical Exam Vital Signs: Temp Pulse Resp BP Pulse Ox 98.3 F 99 15 133/63 H 94 08/22/17 20:00 08/22/17 20:00 08/22/17 20:00 08/22/17 20:00 08/22/17 20:00 Intake & Output 08/21/17 08/22/17 08/23/17 06:59 06:59 06:59 Intake Total 1110 770 791 Output Total 1550 1440 550 Balance -440 -670 241 Weight 107.7 kg 106.3 kg General appearance: PRESENT: no acute distress Eye exam: PRESENT: PERRLA Respiratory exam: PRESENT: clear to auscultation evan Cardiovascular exam: PRESENT: +S1, +S2 GI/Abdominal exam: PRESENT: soft Results Laboratory Results: 08/16/17 06:06 08/16/17 06:06 Impressions: Chest X-Ray 08/11/17 02:07 IMPRESSION: Mild cardiomegaly. Mild bibasilar atelectasis. Small left pleural effusion. Shoulder X-Ray 08/11/17 02:07 IMPRESSION: Mildly displaced intra-articular fracture at the left glenoid. Femur X-Ray 08/11/17 02:55 IMPRESSION: Displaced, spiral fracture at the proximal left femur extending through the lesser trochanter. Fluoroscopy 08/13/17 00:00 IMPRESSION: Please see combined report for performance of procedure and radiologic supervision and interpretation. Hip X-Ray 08/13/17 00:00 IMPRESSION: IMAGE(S) OBTAINED DURING PROCEDURE. Assessment & Plan - Diagnosis (1) Left femoral shaft fracture Qualifiers: Encounter type: subsequent encounter Fracture type: closed Fracture morphology: spiral Fracture alignment: displaced Is this a current diagnosis for this admission?: Yes (2) Closed fracture of glenoid cavity of left scapula Qualifiers: Encounter type: initial encounter Fracture alignment: displaced Qualified Code(s): S42.142A - Displaced fracture of glenoid cavity of scapula, left shoulder, initial encounter for closed fracture Is this a current diagnosis for this admission?: Yes (3) Type 2 diabetes mellitus Qualifiers: Diabetes mellitus complication status: without complication Is this a current diagnosis for this admission?: Yes (4) Hypertension Qualifiers: Hypertension type: essential hypertension Qualified Code(s): I10 - Essential (primary) hypertension Is this a current diagnosis for this admission?: Yes (5) Preoperative cardiovascular examination Is this a current diagnosis for this admission?: Yes
[2017-08-22] MEDS: INSULIN GLARGINE,HUM.REC.ANLOG 300 UNIT/3 ML INSULN.PEN SUBCUT SCH (22:24)
[2017-08-22] MEDS: TRAZODONE HCL 50 MG TABLET PO PRN (22:24)
[2017-08-22] MEDS: ATORVASTATIN CALCIUM 40 MG TABLET PO SCH (22:25)
[2017-08-22] MEDS: OXYCODONE HCL IR 5 MG TABLET PO PRN (22:32)
[2017-08-23] MEDS: INSULIN LISPRO 100 UNIT/ML 3 ML VIAL SUBCUT PRN ×4 (08:45→23:48)
[2017-08-23] MEDS: GLIPIZIDE 5 MG TABLET PO SCH ×2 (08:46→17:22)
[2017-08-23] MEDS: FAMOTIDINE INJ/PF 20 MG/2 ML SDV IV SCH ×2 (10:36→23:21)
[2017-08-23] MEDS: LISINOPRIL 10 MG TABLET PO SCH (10:36)
[2017-08-23] MEDS: OXYCODONE HCL IR 5 MG TABLET PO PRN (10:37)
[2017-08-23] MEDS: ASPIRIN 81 MG TABLET, ENT COATED PO SCH (10:37)
[2017-08-23] MEDS: BUPROPION HCL 75 MG TABLET PO SCH ×2 (10:37→23:21)
[2017-08-23] MEDS: DOCUSATE SODIUM 100 MG CAPSULE PO SCH ×2 (10:38→17:23)
[2017-08-23] MEDS: PIOGLITAZONE HCL 15 MG TABLET PO SCH ×2 (10:38→17:23)
[2017-08-23] MEDS: ARIPIPRAZOLE 5 MG TABLET PO SCH (10:38)
--- NOTE | 2017-08-23 14:31 | PDOC PROGRESS REPORT ---
Subjective Progress Note for:: 08/23/17 Subjective:: Patient continues to have discomfort in his left leg but states it is improving. At this point he has refused therapy but now feels his pain is more controlled is going to proceed with therapy. Reason For Visit: SHOULDER FX Physical Exam Vital Signs: Temp Pulse Resp BP Pulse Ox 98.4 F 96 16 137/68 H 92 08/23/17 07:48 08/23/17 07:48 08/23/17 07:48 08/23/17 07:48 08/23/17 07:48 Intake & Output 08/22/17 08/23/17 08/24/17 06:59 06:59 06:59 Intake Total 770 1398 Output Total 1440 1125 Balance -670 273 Weight 106.3 kg 105.7 kg Musculoskeletal exam: PRESENT: other - Left hip: Dressing clean/dry/intact no erythema or drainage. Intact plantar flexion/dorsiflexion. No calf tenderness. Moderate thigh swelling compartments soft and compressible no sign of compartment syndrome Results Laboratory Results: 08/16/17 06:06 08/16/17 06:06 Impressions: Chest X-Ray 08/11/17 02:07 IMPRESSION: Mild cardiomegaly. Mild bibasilar atelectasis. Small left pleural effusion. Shoulder X-Ray 08/11/17 02:07 IMPRESSION: Mildly displaced intra-articular fracture at the left glenoid. Femur X-Ray 08/11/17 02:55 IMPRESSION: Displaced, spiral fracture at the proximal left femur extending through the lesser trochanter. Fluoroscopy 08/13/17 00:00 IMPRESSION: Please see combined report for performance of procedure and radiologic supervision and interpretation. Hip X-Ray 08/13/17 00:00 IMPRESSION: IMAGE(S) OBTAINED DURING PROCEDURE. Assessment & Plan - Diagnosis (1) Left femoral shaft fracture Qualifiers: Encounter type: subsequent encounter Fracture type: closed Fracture morphology: spiral Fracture alignment: displaced Is this a current diagnosis for this admission?: Yes Plan: Patient status post IM nail left proximal femur fracture. Given the severity of patient's fracture he has been reluctant to begin therapy. At this point he will begin therapy I stressed the importance of beginning some mobilization should avoid full weightbearing. Currently receiving aspirin 81 mg for DVT prophylaxis. Continue current pain regimen.
--- NOTE | 2017-08-23 15:08 | PDOC PROGRESS REPORT ---
Subjective Progress Note for:: 08/23/17 Subjective:: Left shoulder joint pain remain a concern. s/p ORIF of left femur fracture doing fine. No reported fever or chills. No chest pain or difficulty with breathing. Awaiting SNF placement for short term rehabilitation. Reason For Visit: SHOULDER FX Physical Exam Vital Signs: Temp Pulse Resp BP Pulse Ox 98.4 F 96 16 137/68 H 92 08/23/17 07:48 08/23/17 07:48 08/23/17 07:48 08/23/17 07:48 08/23/17 07:48 Intake & Output 08/22/17 08/23/17 08/24/17 06:59 06:59 06:59 Intake Total 770 1398 Output Total 1440 1125 Balance -670 273 Weight 106.3 kg 105.7 kg General appearance: PRESENT: no acute distress, well-developed, well-nourished Head exam: PRESENT: atraumatic, normocephalic Eye exam: PRESENT: conjunctiva pink, EOMI, PERRLA. ABSENT: scleral icterus Respiratory exam: PRESENT: clear to auscultation evan Cardiovascular exam: PRESENT: RRR. ABSENT: diastolic murmur, rubs, systolic murmur Pulses: PRESENT: normal dorsalis pedis pul, +2 pedal pulses bilateral Vascular exam: PRESENT: normal capillary refill. ABSENT: pallor GI/Abdominal exam: PRESENT: normal bowel sounds, soft. ABSENT: distended, guarding, mass, organolmegaly, rebound, tenderness Extremities exam: ABSENT: pedal edema Musculoskeletal exam: PRESENT: deformity - left shoulder joint, tenderness - left shoulder joint Neurological exam: PRESENT: alert, awake, oriented to person, oriented to place , oriented to time, oriented to situation, CN II-XII grossly intact. ABSENT: motor sensory deficit Psychiatric exam: PRESENT: appropriate affect, normal mood. ABSENT: homicidal ideation, suicidal ideation Skin exam: PRESENT: dry, warm, other - left femur ORIF operative site dressing satisfactory. ABSENT: cyanosis, rash Results Laboratory Results: 08/16/17 06:06 08/16/17 06:06 Impressions: Chest X-Ray 08/11/17 02:07 IMPRESSION: Mild cardiomegaly. Mild bibasilar atelectasis. Small left pleural effusion. Shoulder X-Ray 08/11/17 02:07 IMPRESSION: Mildly displaced intra-articular fracture at the left glenoid. Femur X-Ray 08/11/17 02:55 IMPRESSION: Displaced, spiral fracture at the proximal left femur extending through the lesser trochanter. Fluoroscopy 08/13/17 00:00 IMPRESSION: Please see combined report for performance of procedure and radiologic supervision and interpretation. Hip X-Ray 08/13/17 00:00 IMPRESSION: IMAGE(S) OBTAINED DURING PROCEDURE. Assessment & Plan - Diagnosis (1) Closed fracture of glenoid cavity of left scapula Qualifiers: Encounter type: initial encounter Fracture alignment: displaced Qualified Code(s): S42.142A - Displaced fracture of glenoid cavity of scapula, left shoulder, initial encounter for closed fracture Is this a current diagnosis for this admission?: Yes Plan: Patient fracture is deemed inoperable. We will continue pain management and reinstate physical therapy. (2) Left femoral shaft fracture Qualifiers: Encounter type: subsequent encounter Fracture type: closed Fracture morphology: spiral Fracture alignment: displaced Is this a current diagnosis for this admission?: Yes Plan: s/p left ORIF of femur shaft fracture. Op site satisfactory. (3) Hypertension Qualifiers: Hypertension type: essential hypertension Qualified Code(s): I10 - Essential (primary) hypertension Is this a current diagnosis for this admission?: Yes Plan: See covering attending physician orders. (4) Type 2 diabetes mellitus Qualifiers: Diabetes mellitus complication status: without complication Is this a current diagnosis for this admission?: Yes Plan: See covering attending physician orders. - Time Time Spent with patient: 25-34 minutes Medications reviewed and adjusted accordingly: Yes Anticipated discharge: SNF Within: Other - Inpatient Certification Based on my medical assessment, after consideration of the patient's comorbidities, presenting symptoms, or acuity I expect that the services needed warrant INPATIENT care.: Yes I certify that my determination is in accordance with my understanding of Medicare's requirements for reasonable and necessary INPATIENT services [42 CFR 412.3e].: Yes Medical Necessity: Need Close Monitoring Due to Risk of Patient Decompensation, Need for Pain Control, Risk of Complication if Not Cared For in Hospital - Plan Summary Plan Summary: Improving. Continue supportive therapy. See covering attending physician orders.
[2017-08-23] MEDS: ACETAMINOPHEN 325 MG TABLET PO PRN (15:28)
[2017-08-23 17:35] LABS: ARTERIAL BLOOD BASE EXCESS -2.8 mmol/L; ARTERIAL BLOOD H2CO3 0.79 mmol/L (1.05-1.35); ARTERIAL BLOOD HCO3 19.4 mmol/L (20-26); ARTERIAL BLOOD PCO2 26.1 mmHg (35-45); ARTERIAL BLOOD PH 7.49 (7.35-7.45); ARTERIAL BLOOD PO2 59.2 mmHg (80-100); ARTERIAL BLOOD TOTAL CO2 20.2 mmol/L (23-27)
[2017-08-23 17:41] LABS: ARTERIAL BLOOD FIO2 4L
--- NOTE | 2017-08-23 18:55 | RADIOLOGY REPORT (SQ) ---
EXAM DESCRIPTION: CTA CHEST COMPLETED DATE/TIME: 08/23/2017 6:37 pm REASON FOR STUDY: rule out PE COMPARISON: None. TECHNIQUE: CT scan of the chest performed using helical scanning technique with dynamic intravenous contrast injection. Images reviewed with lung, soft tissue and bone windows. Reconstructed coronal and sagittal MPR images reviewed. Additional 3 dimensional post-processing performed to develop Maximal Intensity Projection images (SD P). All images stored on PACS. All CT scanners at this facility use dose modulation, iterative reconstruction, and/or weight based d osing when appropriate to reduce radiation dose to as low as reasonably achievable (ALARA). [facility]: Dose Right [facility]: CareDose [facility]: Dose Right [facility]: Teradose 4D [facility]: WinAd CONTRAST TYPE AND DOSE: contrast/concentration: Isovue 370.00 mg/ml; Total Contrast Delivered: 82.0 ml; Total Saline Delivered: 110.0 ml Contrast bolus optimized for the pulmonary arteries. Not diagnostic for the aorta. RENAL FUNCTION: Creatinine 0.72 RADIATION DOSE: CT Rad equipment meets quality standard of care and radiation dose reduction techniq ues were employed. CTDIvol: 28.2 - 52.9 mGy. DLP: 1095 mGy-cm. . LIMITATIONS: None. FINDINGS: LUNGS AND PLEURA: Mild-moderate motion with bibasilar areas of subsegmental volume loss. AORTA AND GREAT VESSELS: No gross aortic dissection or aneurysm. HEART: Cardiomegaly without pericardial effusion. No significant coronary artery calcifications. PULMONARY ARTERIES: Clot is noted in both main pulmonary arteries extending across the bifurcation. Clot extends into upper and lower lobe pulmonary arterial branches. HILAR AND MEDIASTINAL STRUCTURES: No identified masses or abnormal nodes. HARDWARE: None in the chest. UPPER ABDOMEN: No significant findings. Limited exam. THYROID AND OTHER SOFT TISSUES: No masses. No adenopathy. BONES: No acute or significant finding. 3D MIPS: Confirm above findings. OTHER: No other significant finding. IMPRESSION: 1. Positive for bilateral pulmonary embolus. Embolus involves both main pulmonary arter ies, saddle embolus with extension into upper and lower lobe bilateral branches. Pertinent positive or negative findings of the imaging study reported as a CRITICAL RESULT to the cindy payan's nurse at18:49 on 08/23/2017. She is notifying the patient's clinician. COMMENT: Quality ID # [id number]: Final reports with documentation of one or more dose reduction techniques (e.g., Automated exposure control, adjustment of the mA and/or kV according to patient size, use of iterative reconstruction technique) TECHNICAL DOCUMENTATION: JOB ID: [id number] [facility]- All Rights Reserved
[2017-08-23] MEDS ORDERED: HEPARIN SODIUM,PORCINE/D5W 25,000 UNIT/250 ML RTUINJ IV ONE (19:06)
[2017-08-23] MEDS ORDERED: HEPARIN SOD (PORCINE) 1,000 UNIT/ML 10 ML VIAL ONE (19:06)
[2017-08-23 19:49] LABS: HEMATOCRIT 34.6 % (37.9-51.0); HEMOGLOBIN 11.1 g/dL (13.5-17.0); MEAN CORPUSCULAR HEMOGLOBIN 28.7 pg (27.0-33.4); MEAN CORPUSCULAR VOLUME 89 fl (80-97); PLATELET COUNT 538 10^3/uL (150-450); RED BLOOD COUNT 3.87 10^6/uL (4.35-5.55); RED CELL DISTRIBUTION WIDTH 14.7 % (11.5-14.0); WHITE BLOOD COUNT 23.5 10^3/uL (4.0-10.5)
[2017-08-23 19:53] LABS: INTERNATIONAL RATION (INR) 1.06; PROTHROMBIN TIME 14.5 SEC (11.4-15.4)
[2017-08-23 19:54] LABS: PARTIAL THROMBOPLASTIN TIME 37.1 SEC (23.5-35.8)
[2017-08-23] MEDS ORDERED: HEPARIN SOD (PORCINE) 1,000 UNIT/ML 10 ML VIAL IV PRN (20:00)
[2017-08-23 20:16] LABS: ABSOLUTE LYMPHOCYTES# (MANUAL) 1.6 10^3/uL (0.5-4.7); ABSOLUTE MONOCYTES # (MANUAL) 0.7 10^3/uL (0.1-1.4); ABSOLUTE NEUTROPHILS# (MANUAL) 20.4 10^3/uL (1.7-8.2); BASOPHILS % (MANUAL) 0 % (0-2); EOSINOPHILS % (MANUAL) 3 % (0-6); LYMPHOCYTES % (MANUAL) 7 % (13-45); METAMYELOCYTES % (MANUAL) 1 % (0); MONOCYTES % (MANUAL) 3 % (3-13); SEGMENTED NEUTROPHILS % (MAN) 86 % (42-78); TOTAL CELLS COUNTED 100
[2017-08-23 20:17] LABS: PLATELET COMMENT INCREASED
[2017-08-23 20:18] LABS: ANISOCYTOSIS SLIGHT; OVALOCYTES SLIGHT; PLATELET LARGE PRESENT; POIKILOCYTOSIS SLIGHT; POLYCHROMASIA SLIGHT
[2017-08-23] MEDS: HEPARIN SODIUM,PORCINE/D5W 25,000 UNIT/250 ML RTUINJ IV PRN (20:21)
[2017-08-23] MEDS ORDERED: VANCOMYCIN HCL 0 MG in DEXTROSE 5%-WATER 250 ML IV NR (20:45)
[2017-08-23] MEDS ORDERED: VANCOMYCIN HCL INJ 1000 MG VIAL IV PRN (20:50)
[2017-08-23] MEDS ORDERED: AZITHROMYCIN INJ 500 MG VIAL IV PRN (20:51)
[2017-08-23] MEDS ORDERED: CEFTRIAXONE INJ 1000 MG VIAL IV PRN (20:52)
[2017-08-23] MEDS ORDERED: VANCOMYCIN HCL 2,000 MG in DEXTROSE 5%-WATER 500 ML IV ONE (21:00)
[2017-08-23] MEDS ORDERED: AZITHROMYCIN 500 MG in DEXTROSE 5%-WATER 250 ML IV ONE (21:00)
[2017-08-23] MEDS ORDERED: CEFTRIAXONE 2 GM/D5W RTU 2 GM/50 ML RTUPB IV ONE ×2 (21:00→21:42)
[2017-08-23] MEDS ORDERED: AZITHROMYCIN INJ 500 MG VIAL IV ONE (21:41)
[2017-08-23] MEDS ORDERED: VANCOMYCIN HCL INJ 1000 MG VIAL ONE (21:42)
[2017-08-23] MEDS: ATORVASTATIN CALCIUM 40 MG TABLET PO SCH (23:21)
[2017-08-23] MEDS: INSULIN GLARGINE,HUM.REC.ANLOG 300 UNIT/3 ML INSULN.PEN SUBCUT SCH (23:48)
[2017-08-24] MEDS: OXYCODONE HCL IR 5 MG TABLET PO PRN (03:23)
[2017-08-24 04:53] LABS: APPEARANCE,URINE CLOUDY; BILIRUBIN,URINE NEGATIVE (NEGATIVE); COLOR,URINE AMBER; GLUCOSE, URINE 150 mg/dL (NEGATIVE); KETONES,URINE NEGATIVE (NEGATIVE); LEUKOCYTE ESTERASE,URINE NEGATIVE (NEGATIVE); NITRITE,URINE NEGATIVE (NEGATIVE); PROTEIN,URINE 30 mg/dL (NEGATIVE); URINE SPECIFIC GRAVITY 1.035
[2017-08-24] MEDS: GLIPIZIDE 5 MG TABLET PO SCH ×2 (08:08→17:42)
[2017-08-24] MEDS: INSULIN LISPRO 100 UNIT/ML 3 ML VIAL SUBCUT PRN ×3 (08:08→17:43)
[2017-08-24] MEDS ORDERED: HEPARIN SOD (PORCINE) 1,000 UNIT/ML 10 ML VIAL IV PRN (08:58)
[2017-08-24] MEDS: DOCUSATE SODIUM 100 MG CAPSULE PO SCH ×2 (11:00→17:42)
[2017-08-24] MEDS: BUPROPION HCL 75 MG TABLET PO SCH ×2 (11:00→22:07)
[2017-08-24] MEDS: PIOGLITAZONE HCL 15 MG TABLET PO SCH ×2 (11:00→17:42)
[2017-08-24] MEDS: ARIPIPRAZOLE 5 MG TABLET PO SCH (11:01)
[2017-08-24] MEDS: ASPIRIN 81 MG TABLET, ENT COATED PO SCH (11:01)
[2017-08-24] MEDS: FAMOTIDINE INJ/PF 20 MG/2 ML SDV IV SCH ×2 (11:01→21:21)
[2017-08-24] MEDS: HEPARIN SODIUM,PORCINE/D5W 25,000 UNIT/250 ML RTUINJ IV PRN (11:03)
[2017-08-24] MEDS: VANCOMYCIN HCL 1,500 MG in DEXTROSE 5%-WATER 250 ML IV SCH (12:25)
[2017-08-24] MEDS: NORMAL SALINE 1000 ML 1,000 ML IV PRN (12:26)
--- NOTE | 2017-08-24 12:58 | PDOC PROGRESS REPORT ---
Subjective Progress Note for:: 08/24/17 Subjective:: Patient expressed shortness of breath after his last clinical evaluation necessitating request for ABG and eventually CTA chest that confirmed bilateral pulmonary embolism. Continue to express persistent difficulty with breathing and currently on BiPAP support. No chest pain. He is currently on IV Heparin infusion therapy. s/p ORIF of left femur fracture doing fine. Left shoulder joint pain remain a concern. Reason For Visit: POSSIBLE PE Physical Exam Vital Signs: Temp Pulse Resp BP Pulse Ox 98.1 F 104 H 37 H 95/66 L 98 08/24/17 07:59 08/24/17 07:59 08/24/17 07:59 08/24/17 07:59 08/24/17 07:59 Intake & Output 08/23/17 08/24/17 08/25/17 06:59 06:59 06:59 Intake Total 3825 Output Total 450 Balance 3375 Weight 105.7 kg Physical Exam: General appearance: PRESENT: no acute distress, well-developed, well-nourished Head exam: PRESENT: atraumatic, normocephalic Eye exam: PRESENT: conjunctiva pink, EOMI, PERRLA. ABSENT: scleral icterus Respiratory exam: PRESENT: clear to auscultation evan Cardiovascular exam: PRESENT: RRR. ABSENT: diastolic murmur, rubs, systolic murmur Vascular exam: PRESENT: normal capillary refill. ABSENT: pallor GI/Abdominal exam: PRESENT: normal bowel sounds, soft. ABSENT: distended, guarding, mass, organomegaly, rebound, tenderness Extremities exam: PRESENT: BERENICE in use. ABSENT: pedal edema Musculoskeletal exam: PRESENT: deformity - left shoulder joint, tenderness - left shoulder joint Neurological exam: PRESENT: alert, awake, oriented to person, oriented to place , oriented to time, oriented to situation, CN II-XII grossly intact. ABSENT: motor sensory deficit Psychiatric exam: PRESENT: appropriate affect, normal mood. ABSENT: homicidal ideation, suicidal ideation Skin exam: PRESENT: dry, warm, other - left femur ORIF operative site dressing satisfactory. ABSENT: cyanosis, rash Results Laboratory Results: 08/24/17 08:21 08/24/17 08/24/17 08/24/17 03:50 03:50 08:21 Creatinine 1.06 Est GFR ( Amer) > 60 Est GFR (Non-Af Amer) > 60 Urine Color RAHUL Urine Appearance CLOUDY Urine pH 5.0 Ur Specific [place] 1.035 Urine Protein 30 H Urine Glucose (UA) 150 H Urine Ketones NEGATIVE Urine Blood SMALL H Urine Nitrite NEGATIVE Ur Leukocyte Esterase NEGATIVE Urine WBC (Auto) 4 Urine RBC (Auto) 2 Stool Occult Blood NEGATIVE Impressions: Chest X-Ray 08/11/17 02:07 IMPRESSION: Mild cardiomegaly. Mild bibasilar atelectasis. Small left pleural effusion. Shoulder X-Ray 08/11/17 02:07 IMPRESSION: Mildly displaced intra-articular fracture at the left glenoid. Femur X-Ray 08/11/17 02:55 IMPRESSION: Displaced, spiral fracture at the proximal left femur extending through the lesser trochanter. Fluoroscopy 08/13/17 00:00 IMPRESSION: Please see combined report for performance of procedure and radiologic supervision and interpretation. Hip X-Ray 08/13/17 00:00 IMPRESSION: IMAGE(S) OBTAINED DURING PROCEDURE. Chest/Abdomen CTA 08/23/17 00:00 IMPRESSION: 1. Positive for bilateral pulmonary embolus. Embolus involves both main pulmonary arteries, saddle embolus with extension into upper and lower lobe bilateral branches. Pertinent positive or negative findings of the imaging study reported as a CRITICAL RESULT to the patient's nurse at18:49 on 08/23/2017. She is notifying the patient's clinician. Assessment & Plan - Diagnosis (1) Closed fracture of glenoid cavity of left scapula Qualifiers: Encounter type: initial encounter Fracture alignment: displaced Qualified Code(s): S42.142A - Displaced fracture of glenoid cavity of scapula, left shoulder, initial encounter for closed fracture Is this a current diagnosis for this admission?: Yes (2) Left femoral shaft fracture Qualifiers: Encounter type: subsequent encounter Fracture type: closed Fracture morphology: spiral Fracture alignment: displaced Is this a current diagnosis for this admission?: Yes (3) Hypertension Qualifiers: Hypertension type: essential hypertension Qualified Code(s): I10 - Essential (primary) hypertension Is this a current diagnosis for this admission?: Yes (4) Type 2 diabetes mellitus Qualifiers: Diabetes mellitus complication status: without complication Is this a current diagnosis for this admission?: Yes (5) Bilateral pulmonary embolism Is this a current diagnosis for this admission?: Yes Plan: See covering attending physician orders. - Time Time Spent with patient: 35 or more minutes Medications reviewed and adjusted accordingly: Yes Anticipated discharge: SNF - for short term rehabilitation. - Inpatient Certification Based on my medical assessment, after consideration of the patient's comorbidities, presenting symptoms, or acuity I expect that the services needed warrant INPATIENT care.: Yes I certify that my determination is in accordance with my understanding of Medicare's requirements for reasonable and necessary INPATIENT services [42 CFR 412.3e].: Yes Medical Necessity: Need Close Monitoring Due to Risk of Patient Decompensation, Need For Continuous Telemetry Monitoring, Need for IV Antibiotics, Risk of Complication if Not Cared For in Hospital Post Hospital Care: D/C or Transfer Summary - Plan Summary Plan Summary: See covering attending physician orders.
--- NOTE | 2017-08-24 13:59 | PDOC PROGRESS REPORT ---
Subjective Progress Note for:: 08/24/17 Subjective:: Patient continues to have discomfort in his left leg but states it is improving. Unfortunately since previous clinical evaluation patient had developed shortness of breath ultimately CT scan demonstrated pulmonary embolism. He was started on BiPAP which he is on currently. Reason For Visit: POSSIBLE PE Physical Exam Vital Signs: Temp Pulse Resp BP Pulse Ox 98.7 F 103 H 24 H 102/65 95 08/24/17 12:00 08/24/17 12:00 08/24/17 13:34 08/24/17 12:00 08/24/17 13:34 Intake & Output 08/23/17 08/24/17 08/25/17 06:59 06:59 06:59 Intake Total 3825 0 Output Total 450 Balance 3375 0 Weight 105.7 kg Musculoskeletal exam: PRESENT: other - Left Hip: Dressing clean/dry/intact no erythema or drainage. Moderate thigh swelling no sign of compartment syndrome no calf tenderness. Intact plantar flexion/dorsiflexion. No sensory deficits. Results Laboratory Results: 08/24/17 08:21 08/24/17 08/24/17 08/24/17 03:50 03:50 08:21 Creatinine 1.06 Est GFR ( Amer) > 60 Est GFR (Non-Af Amer) > 60 Urine Color RAHUL Urine Appearance CLOUDY Urine pH 5.0 Ur Specific [place] 1.035 Urine Protein 30 H Urine Glucose (UA) 150 H Urine Ketones NEGATIVE Urine Blood SMALL H Urine Nitrite NEGATIVE Ur Leukocyte Esterase NEGATIVE Urine WBC (Auto) 4 Urine RBC (Auto) 2 Stool Occult Blood NEGATIVE Impressions: Chest X-Ray 08/11/17 02:07 IMPRESSION: Mild cardiomegaly. Mild bibasilar atelectasis. Small left pleural effusion. Shoulder X-Ray 08/11/17 02:07 IMPRESSION: Mildly displaced intra-articular fracture at the left glenoid. Femur X-Ray 08/11/17 02:55 IMPRESSION: Displaced, spiral fracture at the proximal left femur extending through the lesser trochanter. Fluoroscopy 08/13/17 00:00 IMPRESSION: Please see combined report for performance of procedure and radiologic supervision and interpretation. Hip X-Ray 08/13/17 00:00 IMPRESSION: IMAGE(S) OBTAINED DURING PROCEDURE. Chest/Abdomen CTA 08/23/17 00:00 IMPRESSION: 1. Positive for bilateral pulmonary embolus. Embolus involves both main pulmonary arteries, saddle embolus with extension into upper and lower lobe bilateral branches. Pertinent positive or negative findings of the imaging study reported as a CRITICAL RESULT to the patient's nurse at18:49 on 08/23/2017. She is notifying the patient's clinician. Assessment & Plan - Diagnosis (1) Left femoral shaft fracture Qualifiers: Encounter type: subsequent encounter Fracture type: closed Fracture morphology: spiral Fracture alignment: displaced Is this a current diagnosis for this admission?: Yes Plan: Status post IM nail left proximal femur fracture. 1. Patient has evidence of saddle emboli from CT scan. Currently receiving heparin infusion as per Dr. Scherer recommendation. 2. Continue current pain regimen. 3. Will restart physical therapy once medically stable 4. Discharge planning patient will require fpc facility
[2017-08-24] MEDS: CEFTRIAXONE 2 GM/D5W RTU 2 GM/50 ML RTUPB IV SCH (21:21)
[2017-08-24] MEDS: INSULIN GLARGINE,HUM.REC.ANLOG 300 UNIT/3 ML INSULN.PEN SUBCUT SCH (22:07)
[2017-08-24] MEDS: AZITHROMYCIN 500 MG in DEXTROSE 5%-WATER 250 ML IV SCH (22:07)
[2017-08-24] MEDS: ATORVASTATIN CALCIUM 40 MG TABLET PO SCH (22:07)
[2017-08-25] MEDS: OXYCODONE HCL IR 5 MG TABLET PO PRN ×2 (00:20→10:17)
[2017-08-25] MEDS: VANCOMYCIN HCL 1,500 MG in DEXTROSE 5%-WATER 250 ML IV SCH ×3 (00:20→23:31)
[2017-08-25] MEDS: HEPARIN SODIUM,PORCINE/D5W 25,000 UNIT/250 ML RTUINJ IV PRN (02:43)
[2017-08-25] MEDS: NORMAL SALINE 1000 ML 1,000 ML IV PRN ×2 (04:12→18:10)
[2017-08-25 07:13] LABS: ABSOLUTE BASOPHILS # (AUTO) 0.1 10^3/uL (0.0-0.2); ABSOLUTE EOSINOPHILS # (AUTO) 0.3 10^3/uL (0.0-0.6); ABSOLUTE LYMPHOCYTES (AUTO) 2.2 10^3/uL (0.5-4.7); ABSOLUTE MONOCYTES (AUTO) 1.3 10^3/uL (0.1-1.4); ABSOLUTE NEUT (AUTO) 15.5 10^3/uL (1.7-8.2); BASOPHILS % (AUTO) 0.5 % (0-2); EOSINOPHILS % (AUTO) 1.5 % (0-6); HEMATOCRIT 29.3 % (37.9-51.0); HEMOGLOBIN 9.6 g/dL (13.5-17.0); LYMPHOCYTES % (AUTO) 11.4 % (13-45); MEAN CORPUSCULAR HEMOGLOBIN 29.6 pg (27.0-33.4); MEAN CORPUSCULAR HGB CONC 32.8 g/dL (32.0-36.0); MEAN CORPUSCULAR VOLUME 90 fl (80-97); MONOCYTES % (AUTO) 6.6 % (3-13); PLATELET COUNT 330 10^3/uL (150-450); RED BLOOD COUNT 3.24 10^6/uL (4.35-5.55); RED CELL DISTRIBUTION WIDTH 14.8 % (11.5-14.0); TOTAL CELLS COUNTED % (AUTO) 100 %; WHITE BLOOD COUNT 19.3 10^3/uL (4.0-10.5)
[2017-08-25 07:35] LABS: ALBUMIN 2.6 g/dL (3.5-5.0); ALKALINE PHOSPHATASE 171 U/L (38-126); ANION GAP 8 (5-19); ASPARTATE AMINO TRANSFERASE 351 U/L (17-59); BILIRUBIN,DIRECT 0.5 mg/dL (0.0-0.4); BILIRUBIN,TOTAL 0.9 mg/dL (0.2-1.3); BLOOD UREA NITROGEN 27 mg/dL (7-20); CALCIUM 7.8 mg/dL (8.4-10.2); CARBON DIOXIDE 20 mmol/L (22-30); CHLORIDE 107 mmol/L (98-107); GLUCOSE 244 mg/dL (75-110); POTASSIUM 4.2 mmol/L (3.6-5.0); TOTAL PROTEIN 5.2 g/dL (6.3-8.2)
[2017-08-25 07:45] LABS: ALANINE AMINOTRANSFERASE 1110 U/L (21-72)
[2017-08-25] MEDS: ASPIRIN 81 MG TABLET, ENT COATED PO SCH (09:53)
[2017-08-25] MEDS: ARIPIPRAZOLE 5 MG TABLET PO SCH (09:53)
[2017-08-25] MEDS: PIOGLITAZONE HCL 15 MG TABLET PO SCH ×2 (09:54→18:08)
[2017-08-25] MEDS: BUPROPION HCL 75 MG TABLET PO SCH ×2 (09:54→22:05)
[2017-08-25] MEDS: DOCUSATE SODIUM 100 MG CAPSULE PO SCH ×2 (09:54→17:34)
[2017-08-25] MEDS: GLIPIZIDE 5 MG TABLET PO SCH ×2 (09:54→17:16)
[2017-08-25] MEDS: FAMOTIDINE INJ/PF 20 MG/2 ML SDV IV SCH ×2 (09:55→22:05)
[2017-08-25] MEDS: INSULIN LISPRO 100 UNIT/ML 3 ML VIAL SUBCUT PRN ×3 (11:48→23:36)
[2017-08-25] MEDS: RIVAROXABAN 15 MG TABLET PO SCH (17:16)
--- NOTE | 2017-08-25 20:57 | PDOC PROGRESS REPORT ---
Subjective Progress Note for:: 08/25/17 Subjective:: Patient seen by the bedside, he had pulmonary embolism over the weekend, was started on IV heparin Reason For Visit: POSSIBLE PE Physical Exam Vital Signs: Temp Pulse Resp BP Pulse Ox 97.8 F 105 H 28 H 111/65 94 08/25/17 17:00 08/25/17 17:00 08/25/17 17:00 08/25/17 17:00 08/25/17 17:00 Intake & Output 08/24/17 08/25/17 08/26/17 06:59 06:59 06:59 Intake Total 3825 3543 1165 Output Total 450 1230 675 Balance 3375 2313 490 Weight 105.7 kg 106.9 kg General appearance: PRESENT: no acute distress Eye exam: PRESENT: PERRLA Respiratory exam: PRESENT: clear to auscultation evan Cardiovascular exam: PRESENT: +S1, +S2 GI/Abdominal exam: PRESENT: soft Neurological exam: PRESENT: alert Results Laboratory Results: 08/25/17 06:25 08/25/17 06:25 08/25/17 08/25/17 06:25 06:25 WBC 19.3 H RBC 3.24 L Hgb 9.6 L Hct 29.3 L MCV 90 MCH 29.6 MCHC 32.8 RDW 14.8 H Plt Count 330 Seg Neutrophils % 80.0 H Lymphocytes % 11.4 L Monocytes % 6.6 Eosinophils % 1.5 Basophils % 0.5 Absolute Neutrophils 15.5 H Absolute Lymphocytes 2.2 Absolute Monocytes 1.3 Absolute Eosinophils 0.3 Absolute Basophils 0.1 Sodium 135.0 L Potassium 4.2 Chloride 107 Carbon Dioxide 20 L Anion Gap 8 BUN 27 H Creatinine 0.61 Est GFR ( Amer) > 60 Est GFR (Non-Af Amer) > 60 Glucose 244 H Calcium 7.8 L Total Bilirubin 0.9 AST 351 H ALT 1110 H Alkaline Phosphatase 171 H Total Protein 5.2 L Albumin 2.6 L Impressions: Chest X-Ray 08/11/17 02:07 IMPRESSION: Mild cardiomegaly. Mild bibasilar atelectasis. Small left pleural effusion. Shoulder X-Ray 08/11/17 02:07 IMPRESSION: Mildly displaced intra-articular fracture at the left glenoid. Femur X-Ray 08/11/17 02:55 IMPRESSION: Displaced, spiral fracture at the proximal left femur extending through the lesser trochanter. Fluoroscopy 08/13/17 00:00 IMPRESSION: Please see combined report for performance of procedure and radiologic supervision and interpretation. Hip X-Ray 08/13/17 00:00 IMPRESSION: IMAGE(S) OBTAINED DURING PROCEDURE. Chest/Abdomen CTA 08/23/17 00:00 IMPRESSION: 1. Positive for bilateral pulmonary embolus. Embolus involves both main pulmonary arteries, saddle embolus with extension into upper and lower lobe bilateral branches. Pertinent positive or negative findings of the imaging study reported as a CRITICAL RESULT to the patient's nurse at18:49 on 08/23/2017. She is notifying the patient's clinician. Assessment & Plan - Diagnosis (1) Left femoral shaft fracture Qualifiers: Encounter type: subsequent encounter Fracture type: closed Fracture morphology: spiral Fracture alignment: displaced Is this a current diagnosis for this admission?: Yes (2) Closed fracture of glenoid cavity of left scapula Qualifiers: Encounter type: initial encounter Fracture alignment: displaced Qualified Code(s): S42.142A - Displaced fracture of glenoid cavity of scapula, left shoulder, initial encounter for closed fracture Is this a current diagnosis for this admission?: Yes (3) Type 2 diabetes mellitus Qualifiers: Diabetes mellitus complication status: without complication Is this a current diagnosis for this admission?: Yes (4) Hypertension Qualifiers: Hypertension type: essential hypertension Qualified Code(s): I10 - Essential (primary) hypertension Is this a current diagnosis for this admission?: Yes (5) Preoperative cardiovascular examination Is this a current diagnosis for this admission?: Yes (6) Bilateral pulmonary embolism Is this a current diagnosis for this admission?: Yes Plan: Discontinue IV heparin, start Xarelto 15 mg 1 tablet 2 times a day
[2017-08-25] MEDS: ATORVASTATIN CALCIUM 40 MG TABLET PO SCH (22:05)
[2017-08-25] MEDS: AZITHROMYCIN 500 MG in DEXTROSE 5%-WATER 250 ML IV SCH (22:06)
[2017-08-25] MEDS: CEFTRIAXONE 2 GM/D5W RTU 2 GM/50 ML RTUPB IV SCH (22:06)
[2017-08-25] MEDS: TRAZODONE HCL 50 MG TABLET PO PRN (22:16)
[2017-08-25] MEDS ORDERED: INSULIN GLARGINE,HUM.REC.ANLOG 300 UNIT/3 ML INSULN.PEN SUBCUT ONE (22:24)
[2017-08-25] MEDS: INSULIN GLARGINE,HUM.REC.ANLOG 300 UNIT/3 ML INSULN.PEN SUBCUT SCH (22:53)
[2017-08-26] MEDS: OXYCODONE HCL IR 5 MG TABLET PO PRN ×2 (00:57→11:50)
--- NOTE | 2017-08-26 07:13 | PDOC PROGRESS REPORT ---
Subjective Progress Note for:: 08/26/17 Reason For Visit: POSSIBLE PE 62-year-old white male status post open reduction internal fixation of a left intratrochanteric femur fracture with limited progress with physical therapy. Patient was diagnosed with bilateral pulmonary embolism over the weekend is now on IV heparin therapy. Physical Exam Vital Signs: Temp Pulse Resp BP Pulse Ox 36.4 C 94 18 101/67 95 08/26/17 03:57 08/26/17 03:57 08/26/17 04:39 08/26/17 03:57 08/26/17 04:39 Intake & Output 08/25/17 08/26/17 08/27/17 06:59 06:59 06:59 Intake Total 3543 1859 Output Total 1230 1400 Balance 2313 459 Weight 106.9 kg 108.9 kg General appearance: PRESENT: no acute distress Head exam: PRESENT: normocephalic Respiratory exam: PRESENT: unlabored Cardiovascular exam: PRESENT: RRR Pulses: PRESENT: +1 pedal pulses bilateral Vascular exam: PRESENT: normal capillary refill GI/Abdominal exam: PRESENT: soft Rectal exam: PRESENT: deferred Extremities exam: PRESENT: other - Thigh dressing is clean dry and intact. Leg lengths are equal. Distal neurovascular examination is intact. Neurological exam: PRESENT: alert, awake, oriented to person, oriented to place , oriented to time, oriented to situation. ABSENT: motor sensory deficit Psychiatric exam: PRESENT: appropriate affect, normal mood. ABSENT: homicidal ideation, suicidal ideation Skin exam: PRESENT: dry, intact, warm. ABSENT: cyanosis, rash Results Laboratory Results: 08/25/17 06:25 08/25/17 06:25 08/25/17 08/25/17 06:25 06:25 WBC 19.3 H RBC 3.24 L Hgb 9.6 L Hct 29.3 L MCV 90 MCH 29.6 MCHC 32.8 RDW 14.8 H Plt Count 330 Seg Neutrophils % 80.0 H Lymphocytes % 11.4 L Monocytes % 6.6 Eosinophils % 1.5 Basophils % 0.5 Absolute Neutrophils 15.5 H Absolute Lymphocytes 2.2 Absolute Monocytes 1.3 Absolute Eosinophils 0.3 Absolute Basophils 0.1 Sodium 135.0 L Potassium 4.2 Chloride 107 Carbon Dioxide 20 L Anion Gap 8 BUN 27 H Creatinine 0.61 Est GFR ( Amer) > 60 Est GFR (Non-Af Amer) > 60 Glucose 244 H Calcium 7.8 L Total Bilirubin 0.9 AST 351 H ALT 1110 H Alkaline Phosphatase 171 H Total Protein 5.2 L Albumin 2.6 L Impressions: Chest X-Ray 08/11/17 02:07 IMPRESSION: Mild cardiomegaly. Mild bibasilar atelectasis. Small left pleural effusion. Shoulder X-Ray 08/11/17 02:07 IMPRESSION: Mildly displaced intra-articular fracture at the left glenoid. Femur X-Ray 08/11/17 02:55 IMPRESSION: Displaced, spiral fracture at the proximal left femur extending through the lesser trochanter. Fluoroscopy 08/13/17 00:00 IMPRESSION: Please see combined report for performance of procedure and radiologic supervision and interpretation. Hip X-Ray 08/13/17 00:00 IMPRESSION: IMAGE(S) OBTAINED DURING PROCEDURE. Chest/Abdomen CTA 08/23/17 00:00 IMPRESSION: 1. Positive for bilateral pulmonary embolus. Embolus involves both main pulmonary arteries, saddle embolus with extension into upper and lower lobe bilateral branches. Pertinent positive or negative findings of the imaging study reported as a CRITICAL RESULT to the patient's nurse at18:49 on 08/23/2017. She is notifying the patient's clinician. Status: Imported from PACS Assessment & Plan - Diagnosis (1) Cardiomegaly Is this a current diagnosis for this admission?: Yes Plan: Stable (2) Closed fracture of glenoid cavity of left scapula Qualifiers: Encounter type: initial encounter Fracture alignment: displaced Qualified Code(s): S42.142A - Displaced fracture of glenoid cavity of scapula, left shoulder, initial encounter for closed fracture Is this a current diagnosis for this admission?: Yes Plan: Being treated nonoperatively (3) Left femoral shaft fracture Qualifiers: Encounter type: subsequent encounter Fracture type: closed Fracture morphology: spiral Fracture alignment: displaced Is this a current diagnosis for this admission?: Yes Plan: Patient has refused mobilization (4) Postoperative anemia due to acute blood loss Is this a current diagnosis for this admission?: Yes Plan: Stable (5) Bilateral pulmonary embolism Is this a current diagnosis for this admission?: Yes Plan: On IV heparin therapy - Time Time Spent with patient: 15-24 minutes Anticipated discharge: Other Within: Other
[2017-08-26] MEDS: GLIPIZIDE 5 MG TABLET PO SCH ×2 (08:13→18:21)
[2017-08-26] MEDS: RIVAROXABAN 15 MG TABLET PO SCH ×2 (08:13→18:21)
[2017-08-26] MEDS ORDERED: LANSOPRAZOLE 30 MG TAB.RAP.DR PO ONE (09:00)
[2017-08-26 09:30] LABS: HEMATOCRIT 28.5 % (37.9-51.0); HEMOGLOBIN 9.4 g/dL (13.5-17.0); MEAN CORPUSCULAR HEMOGLOBIN 29.3 pg (27.0-33.4); MEAN CORPUSCULAR HGB CONC 33.2 g/dL (32.0-36.0); MEAN CORPUSCULAR VOLUME 88 fl (80-97); PLATELET COUNT 259 10^3/uL (150-450); RED BLOOD COUNT 3.22 10^6/uL (4.35-5.55); RED CELL DISTRIBUTION WIDTH 14.2 % (11.5-14.0); WHITE BLOOD COUNT 16.8 10^3/uL (4.0-10.5)
[2017-08-26] MEDS: ASPIRIN 81 MG TABLET, ENT COATED PO SCH (10:01)
[2017-08-26] MEDS: PIOGLITAZONE HCL 15 MG TABLET PO SCH (10:01)
[2017-08-26] MEDS: DOCUSATE SODIUM 100 MG CAPSULE PO SCH ×2 (10:01→18:22)
[2017-08-26] MEDS: AZITHROMYCIN 250 MG TABLET PO SCH (10:01)
[2017-08-26] MEDS: ARIPIPRAZOLE 5 MG TABLET PO SCH (10:01)
[2017-08-26] MEDS: BUPROPION HCL 75 MG TABLET PO SCH ×2 (10:02→21:42)
[2017-08-26 10:04] LABS: ABSOLUTE LYMPHOCYTES# (MANUAL) 2.4 10^3/uL (0.5-4.7); ABSOLUTE NEUTROPHILS# (MANUAL) 12.3 10^3/uL (1.7-8.2); BASOPHILS % (MANUAL) 0 % (0-2); EOSINOPHILS % (MANUAL) 1 % (0-6); LYMPHOCYTES % (MANUAL) 14 % (13-45); MONOCYTES % (MANUAL) 12 % (3-13); SEGMENTED NEUTROPHILS % (MAN) 73 % (42-78); TOTAL CELLS COUNTED 100; TOXIC GRANULATION SLIGHT
[2017-08-26 10:05] LABS: ANISOCYTOSIS SLIGHT; PLATELET COMMENT ADEQUATE; POLYCHROMASIA 1+
[2017-08-26 11:53] LABS: ALANINE AMINOTRANSFERASE 922 U/L (21-72); ALBUMIN 2.7 g/dL (3.5-5.0); ALKALINE PHOSPHATASE 214 U/L (38-126); ANION GAP 9 (5-19); ASPARTATE AMINO TRANSFERASE 162 U/L (17-59); BILIRUBIN,DIRECT 0.4 mg/dL (0.0-0.4); BILIRUBIN,TOTAL 0.9 mg/dL (0.2-1.3); BLOOD UREA NITROGEN 21 mg/dL (7-20); CALCIUM 7.7 mg/dL (8.4-10.2); CARBON DIOXIDE 22 mmol/L (22-30); CHLORIDE 104 mmol/L (98-107); GLUCOSE 219 mg/dL (75-110); POTASSIUM 4.1 mmol/L (3.6-5.0); SODIUM 134.5 mmol/L (137-145); TOTAL PROTEIN 5.3 g/dL (6.3-8.2)
[2017-08-26] MEDS: INSULIN LISPRO 100 UNIT/ML 3 ML VIAL SUBCUT PRN ×3 (12:38→21:44)
[2017-08-26] MEDS: TRAZODONE HCL 50 MG TABLET PO PRN (21:42)
[2017-08-26] MEDS: ATORVASTATIN CALCIUM 40 MG TABLET PO SCH (21:42)
[2017-08-26] MEDS: INSULIN GLARGINE,HUM.REC.ANLOG 300 UNIT/3 ML INSULN.PEN SUBCUT SCH (21:43)
--- NOTE | 2017-08-26 22:41 | PDOC PROGRESS REPORT ---
Subjective Progress Note for:: 08/26/17 Subjective:: Patient seen by the bedside, he has been refusing physical therapy until today, he has only Medicaid, he cannot get into senior care home for rehabilitation , discharge planning is making an effort to get him into a facility Reason For Visit: POSSIBLE PE Physical Exam Vital Signs: Temp Pulse Resp BP Pulse Ox 97.6 F 92 18 107/68 93 08/26/17 15:57 08/26/17 15:57 08/26/17 21:15 08/26/17 15:57 08/26/17 21:15 Intake & Output 08/25/17 08/26/17 08/27/17 06:59 06:59 06:59 Intake Total 3543 1859 651 Output Total 1230 1400 525 Balance 2313 459 126 Weight 106.9 kg 108.9 kg General appearance: PRESENT: no acute distress Head exam: PRESENT: atraumatic, normocephalic Eye exam: PRESENT: PERRLA. ABSENT: scleral icterus Neck exam: PRESENT: full ROM Respiratory exam: PRESENT: clear to auscultation evan Cardiovascular exam: PRESENT: RRR Vascular exam: PRESENT: normal capillary refill GI/Abdominal exam: PRESENT: normal bowel sounds, soft Rectal exam: PRESENT: deferred Neurological exam: PRESENT: alert Psychiatric exam: PRESENT: appropriate affect, normal mood Skin exam: PRESENT: dry, intact, warm Results Laboratory Results: 08/26/17 09:03 08/26/17 12:48 08/26/17 08/26/17 08/26/17 09:03 09:03 11:00 WBC 16.8 H RBC 3.22 L Hgb 9.4 L Hct 28.5 L MCV 88 MCH 29.3 MCHC 33.2 RDW 14.2 H Plt Count 259 Seg Neutrophils % Not Reportable Lymphocytes % Not Reportable Monocytes % Not Reportable Eosinophils % Not Reportable Basophils % Not Reportable Absolute Neutrophils Not Reportable Absolute Lymphocytes Not Reportable Absolute Monocytes Not Reportable Absolute Eosinophils Not Reportable Absolute Basophils Not Reportable Sodium Cancelled 134.5 L Potassium Cancelled 4.1 Chloride Cancelled 104 Carbon Dioxide Cancelled 22 Anion Gap Cancelled 9 BUN Cancelled 21 H Creatinine Cancelled 0.70 Est GFR ( Amer) Cancelled > 60 Est GFR (Non-Af Amer) Cancelled > 60 Glucose Cancelled 219 H Calcium Cancelled 7.7 L Total Bilirubin Cancelled 0.9 AST Cancelled 162 H ALT Cancelled 922 H Alkaline Phosphatase Cancelled 214 H Total Protein Cancelled 5.3 L Albumin Cancelled 2.7 L 08/26/17 12:48 WBC RBC Hgb Hct MCV MCH MCHC RDW Plt Count Seg Neutrophils % Lymphocytes % Monocytes % Eosinophils % Basophils % Absolute Neutrophils Absolute Lymphocytes Absolute Monocytes Absolute Eosinophils Absolute Basophils Sodium Potassium Chloride Carbon Dioxide Anion Gap BUN Creatinine 0.56 Est GFR ( Amer) > 60 Est GFR (Non-Af Amer) > 60 Glucose Calcium Total Bilirubin AST ALT Alkaline Phosphatase Total Protein Albumin 08/24/17 03:50 Clean Catch Midstream Urine Culture - Final NO GROWTH 2 DAYS Impressions: Chest X-Ray 08/11/17 02:07 IMPRESSION: Mild cardiomegaly. Mild bibasilar atelectasis. Small left pleural effusion. Shoulder X-Ray 08/11/17 02:07 IMPRESSION: Mildly displaced intra-articular fracture at the left glenoid. Femur X-Ray 08/11/17 02:55 IMPRESSION: Displaced, spiral fracture at the proximal left femur extending through the lesser trochanter. Fluoroscopy 08/13/17 00:00 IMPRESSION: Please see combined report for performance of procedure and radiologic supervision and interpretation. Hip X-Ray 08/13/17 00:00 IMPRESSION: IMAGE(S) OBTAINED DURING PROCEDURE. Chest/Abdomen CTA 08/23/17 00:00 IMPRESSION: 1. Positive for bilateral pulmonary embolus. Embolus involves both main pulmonary arteries, saddle embolus with extension into upper and lower lobe bilateral branches. Pertinent positive or negative findings of the imaging study reported as a CRITICAL RESULT to the patient's nurse at18:49 on 08/23/2017. She is notifying the patient's clinician. Assessment & Plan - Diagnosis (1) Left femoral shaft fracture Qualifiers: Encounter type: subsequent encounter Fracture type: closed Fracture morphology: spiral Fracture alignment: displaced Is this a current diagnosis for this admission?: Yes (2) Closed fracture of glenoid cavity of left scapula Qualifiers: Encounter type: initial encounter Fracture alignment: displaced Qualified Code(s): S42.142A - Displaced fracture of glenoid cavity of scapula, left shoulder, initial encounter for closed fracture Is this a current diagnosis for this admission?: Yes (3) Type 2 diabetes mellitus Qualifiers: Diabetes mellitus complication status: without complication Is this a current diagnosis for this admission?: Yes (4) Hypertension Qualifiers: Hypertension type: essential hypertension Qualified Code(s): I10 - Essential (primary) hypertension Is this a current diagnosis for this admission?: Yes (5) Preoperative cardiovascular examination Is this a current diagnosis for this admission?: Yes (6) Bilateral pulmonary embolism Is this a current diagnosis for this admission?: Yes
[2017-08-27] MEDS: OXYCODONE HCL IR 5 MG TABLET PO PRN ×2 (00:12→06:07)
[2017-08-27] MEDS: LANSOPRAZOLE 30 MG TAB.RAP.DR PO SCH (06:07)
[2017-08-27 07:22] LABS: ABSOLUTE BASOPHILS # (AUTO) 0.1 10^3/uL (0.0-0.2); ABSOLUTE EOSINOPHILS # (AUTO) 0.4 10^3/uL (0.0-0.6); ABSOLUTE LYMPHOCYTES (AUTO) 2.2 10^3/uL (0.5-4.7); ABSOLUTE MONOCYTES (AUTO) 1.7 10^3/uL (0.1-1.4); ABSOLUTE NEUT (AUTO) 10.1 10^3/uL (1.7-8.2); BASOPHILS % (AUTO) 0.7 % (0-2); EOSINOPHILS % (AUTO) 2.4 % (0-6); HEMATOCRIT 28.3 % (37.9-51.0); HEMOGLOBIN 9.5 g/dL (13.5-17.0); LYMPHOCYTES % (AUTO) 15.2 % (13-45); MEAN CORPUSCULAR HEMOGLOBIN 29.7 pg (27.0-33.4); MEAN CORPUSCULAR HGB CONC 33.4 g/dL (32.0-36.0); MEAN CORPUSCULAR VOLUME 89 fl (80-97); MONOCYTES % (AUTO) 11.5 % (3-13); PLATELET COUNT 295 10^3/uL (150-450); RED BLOOD COUNT 3.19 10^6/uL (4.35-5.55); RED CELL DISTRIBUTION WIDTH 14.6 % (11.5-14.0); SEGMENTED NEUTROPHILS % (AUTO) 70.2 % (42-78); TOTAL CELLS COUNTED % (AUTO) 100 %; WHITE BLOOD COUNT 14.4 10^3/uL (4.0-10.5)
[2017-08-27 07:29] LABS: ALANINE AMINOTRANSFERASE 709 U/L (21-72); ALBUMIN 2.8 g/dL (3.5-5.0); ALKALINE PHOSPHATASE 206 U/L (38-126); ANION GAP 9 (5-19); ASPARTATE AMINO TRANSFERASE 81 U/L (17-59); BILIRUBIN,DIRECT 0.2 mg/dL (0.0-0.4); BILIRUBIN,TOTAL 0.8 mg/dL (0.2-1.3); BLOOD UREA NITROGEN 19 mg/dL (7-20); CALCIUM 7.9 mg/dL (8.4-10.2); CARBON DIOXIDE 24 mmol/L (22-30); CHLORIDE 104 mmol/L (98-107); GLUCOSE 147 mg/dL (75-110); POTASSIUM 3.8 mmol/L (3.6-5.0); TOTAL PROTEIN 5.4 g/dL (6.3-8.2)
[2017-08-27] MEDS: INSULIN LISPRO 100 UNIT/ML 3 ML VIAL SUBCUT PRN ×3 (08:25→22:35)
[2017-08-27] MEDS: GLIPIZIDE 5 MG TABLET PO SCH ×2 (08:25→16:21)
[2017-08-27] MEDS: RIVAROXABAN 15 MG TABLET PO SCH ×2 (08:25→16:21)
[2017-08-27] MEDS: DOCUSATE SODIUM 100 MG CAPSULE PO SCH ×2 (09:13→17:02)
[2017-08-27] MEDS: PIOGLITAZONE HCL 15 MG TABLET PO SCH (09:13)
[2017-08-27] MEDS: ARIPIPRAZOLE 5 MG TABLET PO SCH (09:13)
[2017-08-27] MEDS: BUPROPION HCL 75 MG TABLET PO SCH ×2 (09:13→22:35)
[2017-08-27] MEDS: ASPIRIN 81 MG TABLET, ENT COATED PO SCH (09:14)
[2017-08-27] MEDS: AZITHROMYCIN 250 MG TABLET PO SCH (09:14)
--- NOTE | 2017-08-27 20:17 | PDOC PROGRESS REPORT ---
Subjective Progress Note for:: 08/27/17 Subjective:: Patient was seen by the bedside, he has no new complaints Reason For Visit: POSSIBLE PE Physical Exam Vital Signs: Temp Pulse Resp BP Pulse Ox 97.6 F 88 19 97/61 L 96 08/27/17 15:59 08/27/17 15:59 08/27/17 16:00 08/27/17 15:59 08/27/17 16:00 Intake & Output 08/26/17 08/27/17 08/28/17 06:59 06:59 06:59 Intake Total 1859 1095 859 Output Total 1400 1125 300 Balance 459 -30 559 Weight 108.9 kg 109.8 kg General appearance: PRESENT: no acute distress Eye exam: PRESENT: PERRLA Respiratory exam: PRESENT: clear to auscultation evan Cardiovascular exam: PRESENT: +S1, +S2 GI/Abdominal exam: PRESENT: soft Neurological exam: PRESENT: alert Results Laboratory Results: 08/27/17 05:53 08/27/17 05:53 08/27/17 08/27/17 05:53 05:53 WBC 14.4 H RBC 3.19 L Hgb 9.5 L Hct 28.3 L MCV 89 MCH 29.7 MCHC 33.4 RDW 14.6 H Plt Count 295 Seg Neutrophils % 70.2 Lymphocytes % 15.2 Monocytes % 11.5 Eosinophils % 2.4 Basophils % 0.7 Absolute Neutrophils 10.1 H Absolute Lymphocytes 2.2 Absolute Monocytes 1.7 H Absolute Eosinophils 0.4 Absolute Basophils 0.1 Sodium 137.0 Potassium 3.8 Chloride 104 Carbon Dioxide 24 Anion Gap 9 BUN 19 Creatinine 0.62 Est GFR ( Amer) > 60 Est GFR (Non-Af Amer) > 60 Glucose 147 H Calcium 7.9 L Total Bilirubin 0.8 AST 81 H ALT 709 H Alkaline Phosphatase 206 H Total Protein 5.4 L Albumin 2.8 L Impressions: Chest X-Ray 08/11/17 02:07 IMPRESSION: Mild cardiomegaly. Mild bibasilar atelectasis. Small left pleural effusion. Shoulder X-Ray 08/11/17 02:07 IMPRESSION: Mildly displaced intra-articular fracture at the left glenoid. Femur X-Ray 08/11/17 02:55 IMPRESSION: Displaced, spiral fracture at the proximal left femur extending through the lesser trochanter. Fluoroscopy 08/13/17 00:00 IMPRESSION: Please see combined report for performance of procedure and radiologic supervision and interpretation. Hip X-Ray 08/13/17 00:00 IMPRESSION: IMAGE(S) OBTAINED DURING PROCEDURE. Chest/Abdomen CTA 08/23/17 00:00 IMPRESSION: 1. Positive for bilateral pulmonary embolus. Embolus involves both main pulmonary arteries, saddle embolus with extension into upper and lower lobe bilateral branches. Pertinent positive or negative findings of the imaging study reported as a CRITICAL RESULT to the patient's nurse at18:49 on 08/23/2017. She is notifying the patient's clinician. Assessment & Plan - Diagnosis (1) Left femoral shaft fracture Qualifiers: Encounter type: subsequent encounter Fracture type: closed Fracture morphology: spiral Fracture alignment: displaced Is this a current diagnosis for this admission?: Yes (2) Closed fracture of glenoid cavity of left scapula Qualifiers: Encounter type: initial encounter Fracture alignment: displaced Qualified Code(s): S42.142A - Displaced fracture of glenoid cavity of scapula, left shoulder, initial encounter for closed fracture Is this a current diagnosis for this admission?: Yes (3) Type 2 diabetes mellitus Qualifiers: Diabetes mellitus complication status: without complication Is this a current diagnosis for this admission?: Yes (4) Hypertension Qualifiers: Hypertension type: essential hypertension Qualified Code(s): I10 - Essential (primary) hypertension Is this a current diagnosis for this admission?: Yes (5) Preoperative cardiovascular examination Is this a current diagnosis for this admission?: Yes (6) Bilateral pulmonary embolism Is this a current diagnosis for this admission?: Yes
[2017-08-27] MEDS: ATORVASTATIN CALCIUM 40 MG TABLET PO SCH (22:35)
[2017-08-27] MEDS: INSULIN GLARGINE,HUM.REC.ANLOG 300 UNIT/3 ML INSULN.PEN SUBCUT SCH (22:35)
[2017-08-28] MEDS: LANSOPRAZOLE 30 MG TAB.RAP.DR PO SCH (05:30)
--- NOTE | 2017-08-28 07:06 | PDOC PROGRESS REPORT ---
Subjective Progress Note for:: 08/28/17 Reason For Visit: POSSIBLE PE 62-year-old white male with a nondisplaced left glenoid fracture and status post an open reduction internal fixation of a left subtrochanteric femur fracture. Postoperative course complicated by bilateral pulmonary embolism. Patient is now on anticoagulation. Physical Exam Vital Signs: Temp Pulse Resp BP Pulse Ox 36.8 C 87 16 126/63 H 95 08/28/17 03:17 08/28/17 03:17 08/28/17 03:43 08/28/17 03:17 08/28/17 03:43 Intake & Output 08/27/17 08/28/17 08/29/17 06:59 06:59 06:59 Intake Total 1095 1091 Output Total 1125 750 Balance -30 341 Weight 109.8 kg 109.3 kg General appearance: PRESENT: no acute distress Respiratory exam: PRESENT: unlabored Pulses: PRESENT: +1 pedal pulses bilateral Vascular exam: PRESENT: normal capillary refill Extremities exam: PRESENT: other - Left hip dressing clean dry and intact. Leg lengths are equal. Distal neurovascular examination is intact. Neurological exam: PRESENT: alert, awake, oriented to person, oriented to place , oriented to time, oriented to situation. ABSENT: motor sensory deficit Psychiatric exam: PRESENT: appropriate affect, normal mood. ABSENT: homicidal ideation, suicidal ideation Skin exam: PRESENT: dry, intact, warm. ABSENT: cyanosis, rash Results Laboratory Results: 08/27/17 05:53 08/27/17 05:53 08/27/17 08/27/17 05:53 05:53 WBC 14.4 H RBC 3.19 L Hgb 9.5 L Hct 28.3 L MCV 89 MCH 29.7 MCHC 33.4 RDW 14.6 H Plt Count 295 Seg Neutrophils % 70.2 Lymphocytes % 15.2 Monocytes % 11.5 Eosinophils % 2.4 Basophils % 0.7 Absolute Neutrophils 10.1 H Absolute Lymphocytes 2.2 Absolute Monocytes 1.7 H Absolute Eosinophils 0.4 Absolute Basophils 0.1 Sodium 137.0 Potassium 3.8 Chloride 104 Carbon Dioxide 24 Anion Gap 9 BUN 19 Creatinine 0.62 Est GFR ( Amer) > 60 Est GFR (Non-Af Amer) > 60 Glucose 147 H Calcium 7.9 L Total Bilirubin 0.8 AST 81 H ALT 709 H Alkaline Phosphatase 206 H Total Protein 5.4 L Albumin 2.8 L Impressions: Chest X-Ray 08/11/17 02:07 IMPRESSION: Mild cardiomegaly. Mild bibasilar atelectasis. Small left pleural effusion. Shoulder X-Ray 08/11/17 02:07 IMPRESSION: Mildly displaced intra-articular fracture at the left glenoid. Femur X-Ray 08/11/17 02:55 IMPRESSION: Displaced, spiral fracture at the proximal left femur extending through the lesser trochanter. Fluoroscopy 08/13/17 00:00 IMPRESSION: Please see combined report for performance of procedure and radiologic supervision and interpretation. Hip X-Ray 08/13/17 00:00 IMPRESSION: IMAGE(S) OBTAINED DURING PROCEDURE. Chest/Abdomen CTA 08/23/17 00:00 IMPRESSION: 1. Positive for bilateral pulmonary embolus. Embolus involves both main pulmonary arteries, saddle embolus with extension into upper and lower lobe bilateral branches. Pertinent positive or negative findings of the imaging study reported as a CRITICAL RESULT to the patient's nurse at18:49 on 08/23/2017. She is notifying the patient's clinician. Status: Imported from PACS Assessment & Plan - Diagnosis (1) Cardiomegaly Is this a current diagnosis for this admission?: Yes Plan: Stable (2) Closed fracture of glenoid cavity of left scapula Qualifiers: Encounter type: initial encounter Fracture alignment: displaced Qualified Code(s): S42.142A - Displaced fracture of glenoid cavity of scapula, left shoulder, initial encounter for closed fracture Is this a current diagnosis for this admission?: Yes Plan: Being treated nonoperatively (3) Left femoral shaft fracture Qualifiers: Encounter type: subsequent encounter Fracture type: closed Fracture morphology: spiral Fracture alignment: displaced Is this a current diagnosis for this admission?: Yes Plan: Stable patient declines mobilization with physical therapy. (4) Postoperative anemia due to acute blood loss Is this a current diagnosis for this admission?: Yes Plan: Stable (5) Bilateral pulmonary embolism Is this a current diagnosis for this admission?: Yes Plan: On anticoagulation - Time Time Spent with patient: 15-24 minutes Anticipated discharge: Other Within: Other
[2017-08-28] MEDS: ARIPIPRAZOLE 5 MG TABLET PO SCH (09:22)
[2017-08-28] MEDS: GLIPIZIDE 5 MG TABLET PO SCH ×2 (09:22→16:28)
[2017-08-28] MEDS: BUPROPION HCL 75 MG TABLET PO SCH ×2 (09:23→21:22)
[2017-08-28] MEDS: RIVAROXABAN 15 MG TABLET PO SCH ×2 (09:23→16:28)
[2017-08-28] MEDS: AZITHROMYCIN 250 MG TABLET PO SCH (09:23)
[2017-08-28] MEDS: ASPIRIN 81 MG TABLET, ENT COATED PO SCH (09:23)
[2017-08-28] MEDS: PIOGLITAZONE HCL 15 MG TABLET PO SCH (09:23)
[2017-08-28] MEDS: DOCUSATE SODIUM 100 MG CAPSULE PO SCH ×2 (09:23→17:17)
[2017-08-28] MEDS: INSULIN LISPRO 100 UNIT/ML 3 ML VIAL SUBCUT PRN (13:05)
[2017-08-28] MEDS: OXYCODONE HCL IR 5 MG TABLET PO PRN (21:19)
[2017-08-28] MEDS: ACETAMINOPHEN 325 MG TABLET PO PRN (21:20)
[2017-08-28] MEDS: INSULIN GLARGINE,HUM.REC.ANLOG 300 UNIT/3 ML INSULN.PEN SUBCUT SCH (21:22)
[2017-08-28] MEDS: ATORVASTATIN CALCIUM 40 MG TABLET PO SCH (21:22)
--- NOTE | 2017-08-28 22:00 | PDOC PROGRESS REPORT ---
Subjective Progress Note for:: 08/28/17 Subjective:: Seen by the bedside, He has pulmonary embolism awaiting placement for rehab Reason For Visit: POSSIBLE PE Physical Exam Vital Signs: Temp Pulse Resp BP Pulse Ox 98.0 F 85 18 124/65 98 08/28/17 19:14 08/28/17 19:14 08/28/17 19:14 08/28/17 19:14 08/28/17 19:14 Intake & Output 08/27/17 08/28/17 08/29/17 06:59 06:59 06:59 Intake Total 1095 1091 1008 Output Total 8781 831 3030 Balance -30 341 -92 Weight 109.8 kg 109.3 kg General appearance: PRESENT: no acute distress Eye exam: PRESENT: PERRLA Respiratory exam: PRESENT: clear to auscultation evan Cardiovascular exam: PRESENT: +S1, +S2 GI/Abdominal exam: PRESENT: soft Neurological exam: PRESENT: alert Results Laboratory Results: 08/27/17 05:53 08/27/17 05:53 08/23/17 20:58 Blood Blood Culture - Final NO GROWTH IN 5 DAYS Impressions: Chest X-Ray 08/11/17 02:07 IMPRESSION: Mild cardiomegaly. Mild bibasilar atelectasis. Small left pleural effusion. Shoulder X-Ray 08/11/17 02:07 IMPRESSION: Mildly displaced intra-articular fracture at the left glenoid. Femur X-Ray 08/11/17 02:55 IMPRESSION: Displaced, spiral fracture at the proximal left femur extending through the lesser trochanter. Fluoroscopy 08/13/17 00:00 IMPRESSION: Please see combined report for performance of procedure and radiologic supervision and interpretation. Hip X-Ray 08/13/17 00:00 IMPRESSION: IMAGE(S) OBTAINED DURING PROCEDURE. Chest/Abdomen CTA 08/23/17 00:00 IMPRESSION: 1. Positive for bilateral pulmonary embolus. Embolus involves both main pulmonary arteries, saddle embolus with extension into upper and lower lobe bilateral branches. Pertinent positive or negative findings of the imaging study reported as a CRITICAL RESULT to the patient's nurse at18:49 on 08/23/2017. She is notifying the patient's clinician. Assessment & Plan - Diagnosis (1) Left femoral shaft fracture Qualifiers: Encounter type: subsequent encounter Fracture type: closed Fracture morphology: spiral Fracture alignment: displaced Is this a current diagnosis for this admission?: Yes (2) Closed fracture of glenoid cavity of left scapula Qualifiers: Encounter type: initial encounter Fracture alignment: displaced Qualified Code(s): S42.142A - Displaced fracture of glenoid cavity of scapula, left shoulder, initial encounter for closed fracture Is this a current diagnosis for this admission?: Yes (3) Type 2 diabetes mellitus Qualifiers: Diabetes mellitus complication status: without complication Is this a current diagnosis for this admission?: Yes (4) Hypertension Qualifiers: Hypertension type: essential hypertension Qualified Code(s): I10 - Essential (primary) hypertension Is this a current diagnosis for this admission?: Yes (5) Preoperative cardiovascular examination Is this a current diagnosis for this admission?: Yes (6) Bilateral pulmonary embolism Is this a current diagnosis for this admission?: Yes
[2017-08-29] MEDS: LANSOPRAZOLE 30 MG TAB.RAP.DR PO SCH (05:27)
[2017-08-29] MEDS: OXYCODONE HCL IR 5 MG TABLET PO PRN ×2 (05:31→21:56)
[2017-08-29] MEDS: ACETAMINOPHEN 325 MG TABLET PO PRN (05:32)
[2017-08-29] MEDS: DOCUSATE SODIUM 100 MG CAPSULE PO SCH ×2 (07:50→18:24)
[2017-08-29] MEDS: ARIPIPRAZOLE 5 MG TABLET PO SCH (07:51)
[2017-08-29] MEDS: ASPIRIN 81 MG TABLET, ENT COATED PO SCH (07:51)
[2017-08-29] MEDS: PIOGLITAZONE HCL 15 MG TABLET PO SCH (07:51)
[2017-08-29] MEDS: GLIPIZIDE 5 MG TABLET PO SCH ×2 (07:51→18:23)
[2017-08-29] MEDS: BUPROPION HCL 75 MG TABLET PO SCH ×2 (07:52→21:56)
[2017-08-29] MEDS: RIVAROXABAN 15 MG TABLET PO SCH ×2 (07:52→18:24)
[2017-08-29] MEDS: AZITHROMYCIN 250 MG TABLET PO SCH (07:52)
[2017-08-29] MEDS: TRAZODONE HCL 50 MG TABLET PO PRN (21:56)
[2017-08-29] MEDS: ATORVASTATIN CALCIUM 40 MG TABLET PO SCH (21:56)
--- NOTE | 2017-08-29 22:14 | PDOC PROGRESS REPORT ---
Subjective Progress Note for:: 08/29/17 Subjective:: Seen by the bedside, He has pulmonary embolism awaiting placement for rehab Reason For Visit: POSSIBLE PE Physical Exam Vital Signs: Temp Pulse Resp BP Pulse Ox 97.6 F 81 20 134/73 H 100 08/29/17 19:34 08/29/17 19:34 08/29/17 19:34 08/29/17 19:34 08/29/17 19:34 Intake & Output 08/28/17 08/29/17 08/30/17 06:59 06:59 06:59 Intake Total 1091 1450 651 Output Total 750 1850 500 Balance 341 -400 151 Weight 109.3 kg 107.9 kg General appearance: PRESENT: no acute distress Eye exam: PRESENT: PERRLA Respiratory exam: PRESENT: clear to auscultation evan Cardiovascular exam: PRESENT: +S1, +S2 GI/Abdominal exam: PRESENT: soft Neurological exam: PRESENT: alert Results Laboratory Results: 08/27/17 05:53 08/27/17 05:53 08/23/17 22:15 Blood Blood Culture - Final NO GROWTH IN 5 DAYS 08/23/17 20:58 Blood Blood Culture - Final NO GROWTH IN 5 DAYS Impressions: Chest X-Ray 08/11/17 02:07 IMPRESSION: Mild cardiomegaly. Mild bibasilar atelectasis. Small left pleural effusion. Shoulder X-Ray 08/11/17 02:07 IMPRESSION: Mildly displaced intra-articular fracture at the left glenoid. Femur X-Ray 08/11/17 02:55 IMPRESSION: Displaced, spiral fracture at the proximal left femur extending through the lesser trochanter. Fluoroscopy 08/13/17 00:00 IMPRESSION: Please see combined report for performance of procedure and radiologic supervision and interpretation. Hip X-Ray 08/13/17 00:00 IMPRESSION: IMAGE(S) OBTAINED DURING PROCEDURE. Chest/Abdomen CTA 08/23/17 00:00 IMPRESSION: 1. Positive for bilateral pulmonary embolus. Embolus involves both main pulmonary arteries, saddle embolus with extension into upper and lower lobe bilateral branches. Pertinent positive or negative findings of the imaging study reported as a CRITICAL RESULT to the patient's nurse at18:49 on 08/23/2017. She is notifying the patient's clinician. Assessment & Plan - Diagnosis (1) Left femoral shaft fracture Qualifiers: Encounter type: subsequent encounter Fracture type: closed Fracture morphology: spiral Fracture alignment: displaced Is this a current diagnosis for this admission?: Yes (2) Closed fracture of glenoid cavity of left scapula Qualifiers: Encounter type: initial encounter Fracture alignment: displaced Qualified Code(s): S42.142A - Displaced fracture of glenoid cavity of scapula, left shoulder, initial encounter for closed fracture Is this a current diagnosis for this admission?: Yes (3) Type 2 diabetes mellitus Qualifiers: Diabetes mellitus complication status: without complication Is this a current diagnosis for this admission?: Yes (4) Hypertension Qualifiers: Hypertension type: essential hypertension Qualified Code(s): I10 - Essential (primary) hypertension Is this a current diagnosis for this admission?: Yes (5) Preoperative cardiovascular examination Is this a current diagnosis for this admission?: Yes (6) Bilateral pulmonary embolism Is this a current diagnosis for this admission?: Yes
[2017-08-29] MEDS: INSULIN GLARGINE,HUM.REC.ANLOG 300 UNIT/3 ML INSULN.PEN SUBCUT SCH (23:00)
[2017-08-29] MEDS: INSULIN LISPRO 100 UNIT/ML 3 ML VIAL SUBCUT PRN (23:00)
[2017-08-30] MEDS: LANSOPRAZOLE 30 MG TAB.RAP.DR PO SCH (05:27)
[2017-08-30] MEDS: PIOGLITAZONE HCL 15 MG TABLET PO SCH (09:36)
[2017-08-30] MEDS: ASPIRIN 81 MG TABLET, ENT COATED PO SCH (09:36)
[2017-08-30] MEDS: BUPROPION HCL 75 MG TABLET PO SCH ×2 (09:36→22:23)
[2017-08-30] MEDS: DOCUSATE SODIUM 100 MG CAPSULE PO SCH ×2 (09:36→18:34)
[2017-08-30] MEDS: AZITHROMYCIN 250 MG TABLET PO SCH (09:37)
[2017-08-30] MEDS: RIVAROXABAN 15 MG TABLET PO SCH ×2 (09:37→18:31)
[2017-08-30] MEDS: GLIPIZIDE 5 MG TABLET PO SCH ×2 (09:37→18:31)
[2017-08-30] MEDS: ARIPIPRAZOLE 5 MG TABLET PO SCH (09:37)
[2017-08-30] MEDS ORDERED: OXYCODONE HCL IR 5 MG TABLET ONE (15:42)
--- NOTE | 2017-08-30 20:26 | PDOC PROGRESS REPORT ---
Subjective Progress Note for:: 08/30/17 Subjective:: There is no new complaints Reason For Visit: POSSIBLE PE Physical Exam Vital Signs: Temp Pulse Resp BP Pulse Ox 98.1 F 75 16 132/66 H 99 08/30/17 16:45 08/30/17 16:45 08/30/17 16:45 08/30/17 16:45 08/30/17 16:45 Intake & Output 08/29/17 08/30/17 08/31/17 06:59 06:59 06:59 Intake Total 1450 756 849 Output Total 1850 1125 900 Balance -400 -369 -51 Weight 107.9 kg 108.7 kg General appearance: PRESENT: no acute distress, well-developed, well-nourished Head exam: PRESENT: atraumatic, normocephalic Eye exam: PRESENT: conjunctiva pink, EOMI, PERRLA Ear exam: PRESENT: normal external ear exam Mouth exam: PRESENT: moist, tongue midline Neck exam: PRESENT: full ROM Respiratory exam: PRESENT: clear to auscultation eavn Cardiovascular exam: PRESENT: RRR Pulses: PRESENT: normal dorsalis pedis pul, +2 pedal pulses bilateral Vascular exam: PRESENT: normal capillary refill GI/Abdominal exam: PRESENT: normal bowel sounds, soft Rectal exam: PRESENT: deferred Neurological exam: PRESENT: alert Psychiatric exam: PRESENT: appropriate affect, normal mood Skin exam: PRESENT: dry, intact, warm. ABSENT: cyanosis, rash Results Laboratory Results: 08/27/17 05:53 08/27/17 05:53 Impressions: Chest X-Ray 08/11/17 02:07 IMPRESSION: Mild cardiomegaly. Mild bibasilar atelectasis. Small left pleural effusion. Shoulder X-Ray 08/11/17 02:07 IMPRESSION: Mildly displaced intra-articular fracture at the left glenoid. Femur X-Ray 08/11/17 02:55 IMPRESSION: Displaced, spiral fracture at the proximal left femur extending through the lesser trochanter. Fluoroscopy 08/13/17 00:00 IMPRESSION: Please see combined report for performance of procedure and radiologic supervision and interpretation. Hip X-Ray 08/13/17 00:00 IMPRESSION: IMAGE(S) OBTAINED DURING PROCEDURE. Chest/Abdomen CTA 08/23/17 00:00 IMPRESSION: 1. Positive for bilateral pulmonary embolus. Embolus involves both main pulmonary arteries, saddle embolus with extension into upper and lower lobe bilateral branches. Pertinent positive or negative findings of the imaging study reported as a CRITICAL RESULT to the patient's nurse at18:49 on 08/23/2017. She is notifying the patient's clinician. Assessment & Plan - Diagnosis (1) Left femoral shaft fracture Qualifiers: Encounter type: subsequent encounter Fracture type: closed Fracture morphology: spiral Fracture alignment: displaced Is this a current diagnosis for this admission?: Yes (2) Closed fracture of glenoid cavity of left scapula Qualifiers: Encounter type: initial encounter Fracture alignment: displaced Qualified Code(s): S42.142A - Displaced fracture of glenoid cavity of scapula, left shoulder, initial encounter for closed fracture Is this a current diagnosis for this admission?: Yes (3) Type 2 diabetes mellitus Qualifiers: Diabetes mellitus complication status: without complication Is this a current diagnosis for this admission?: Yes (4) Hypertension Qualifiers: Hypertension type: essential hypertension Qualified Code(s): I10 - Essential (primary) hypertension Is this a current diagnosis for this admission?: Yes (5) Preoperative cardiovascular examination Is this a current diagnosis for this admission?: Yes (6) Bilateral pulmonary embolism Is this a current diagnosis for this admission?: Yes
--- NOTE | 2017-08-30 20:32 | PDOC PROGRESS REPORT ---
Subjective Progress Note for:: 08/30/17 Subjective:: Patient comfortably in bed watching TV. No issues overnight. Reason For Visit: POSSIBLE PE Physical Exam Vital Signs: Temp Pulse Resp BP Pulse Ox 36.7 C 75 16 132/66 H 99 08/30/17 16:45 08/30/17 16:45 08/30/17 16:45 08/30/17 16:45 08/30/17 16:45 Intake & Output 08/29/17 08/30/17 08/31/17 06:59 06:59 06:59 Intake Total 1450 756 849 Output Total 1850 1125 900 Balance -400 -369 -51 Weight 107.9 kg 108.7 kg Adult Front & Back Image: 1 - Dressings are dry clean and intact with a mild 6 bloody drainage on the middle 1. Neurovascular intact distally. Results Laboratory Results: 08/27/17 05:53 08/27/17 05:53 Impressions: Chest X-Ray 08/11/17 02:07 IMPRESSION: Mild cardiomegaly. Mild bibasilar atelectasis. Small left pleural effusion. Shoulder X-Ray 08/11/17 02:07 IMPRESSION: Mildly displaced intra-articular fracture at the left glenoid. Femur X-Ray 08/11/17 02:55 IMPRESSION: Displaced, spiral fracture at the proximal left femur extending through the lesser trochanter. Fluoroscopy 08/13/17 00:00 IMPRESSION: Please see combined report for performance of procedure and radiologic supervision and interpretation. Hip X-Ray 08/13/17 00:00 IMPRESSION: IMAGE(S) OBTAINED DURING PROCEDURE. Chest/Abdomen CTA 08/23/17 00:00 IMPRESSION: 1. Positive for bilateral pulmonary embolus. Embolus involves both main pulmonary arteries, saddle embolus with extension into upper and lower lobe bilateral branches. Pertinent positive or negative findings of the imaging study reported as a CRITICAL RESULT to the patient's nurse at18:49 on 08/23/2017. She is notifying the patient's clinician. Assessment & Plan - Plan Summary Plan Summary: 62-year-old gentleman status post nailing of the left subtrochanteric femur fracture. Nonoperative treatment of glenoid fracture. Continue current care including therapeutic treatment of his pulmonary embolism. Continue physical therapy.
[2017-08-30] MEDS: INSULIN GLARGINE,HUM.REC.ANLOG 300 UNIT/3 ML INSULN.PEN SUBCUT SCH (22:23)
[2017-08-30] MEDS: ATORVASTATIN CALCIUM 40 MG TABLET PO SCH (22:23)
[2017-08-30] MEDS: INSULIN LISPRO 100 UNIT/ML 3 ML VIAL SUBCUT PRN (22:23)
[2017-08-30] MEDS: TRAZODONE HCL 50 MG TABLET PO PRN (22:23)
[2017-08-30] MEDS: OXYCODONE HCL IR 5 MG TABLET PO PRN (22:23)
[2017-08-31] MEDS: LANSOPRAZOLE 30 MG TAB.RAP.DR PO SCH (06:09)
[2017-08-31] MEDS: ASPIRIN 81 MG TABLET, ENT COATED PO SCH (08:36)
[2017-08-31] MEDS: ARIPIPRAZOLE 5 MG TABLET PO SCH (08:36)
[2017-08-31] MEDS: AZITHROMYCIN 250 MG TABLET PO SCH (08:37)
[2017-08-31] MEDS: GLIPIZIDE 5 MG TABLET PO SCH ×2 (08:37→17:54)
[2017-08-31] MEDS: PIOGLITAZONE HCL 15 MG TABLET PO SCH (08:37)
[2017-08-31] MEDS: BUPROPION HCL 75 MG TABLET PO SCH ×2 (08:37→21:41)
[2017-08-31] MEDS: RIVAROXABAN 15 MG TABLET PO SCH ×2 (08:38→17:54)
[2017-08-31] MEDS: DOCUSATE SODIUM 100 MG CAPSULE PO SCH ×2 (08:47→17:58)
--- NOTE | 2017-08-31 14:16 | PDOC PROGRESS REPORT ---
Subjective Progress Note for:: 08/31/17 Subjective:: There is no new complaints Reason For Visit: POSSIBLE PE Physical Exam Vital Signs: Temp Pulse Resp BP Pulse Ox 97.9 F 77 18 139/70 H 96 08/31/17 12:44 08/31/17 12:44 08/31/17 12:44 08/31/17 12:44 08/31/17 12:44 Intake & Output 08/30/17 08/31/17 09/01/17 06:59 06:59 06:59 Intake Total 756 1428 Output Total 1125 1960 Balance -369 -622 Weight 108.7 kg 106.5 kg General appearance: PRESENT: no acute distress, well-developed, well-nourished Head exam: PRESENT: atraumatic, normocephalic Eye exam: PRESENT: conjunctiva pink, EOMI, PERRLA Ear exam: PRESENT: normal external ear exam Mouth exam: PRESENT: moist, tongue midline Neck exam: PRESENT: full ROM Respiratory exam: PRESENT: clear to auscultation evan Cardiovascular exam: PRESENT: RRR, +S1, +S2 Pulses: PRESENT: normal dorsalis pedis pul, +2 pedal pulses bilateral Vascular exam: PRESENT: normal capillary refill GI/Abdominal exam: PRESENT: normal bowel sounds, soft Rectal exam: PRESENT: deferred Neurological exam: PRESENT: alert Psychiatric exam: PRESENT: appropriate affect, normal mood Skin exam: PRESENT: dry, intact, warm. ABSENT: cyanosis, rash Results Laboratory Results: 08/27/17 05:53 08/27/17 05:53 Impressions: Chest X-Ray 08/11/17 02:07 IMPRESSION: Mild cardiomegaly. Mild bibasilar atelectasis. Small left pleural effusion. Shoulder X-Ray 08/11/17 02:07 IMPRESSION: Mildly displaced intra-articular fracture at the left glenoid. Femur X-Ray 08/11/17 02:55 IMPRESSION: Displaced, spiral fracture at the proximal left femur extending through the lesser trochanter. Fluoroscopy 08/13/17 00:00 IMPRESSION: Please see combined report for performance of procedure and radiologic supervision and interpretation. Hip X-Ray 08/13/17 00:00 IMPRESSION: IMAGE(S) OBTAINED DURING PROCEDURE. Chest/Abdomen CTA 08/23/17 00:00 IMPRESSION: 1. Positive for bilateral pulmonary embolus. Embolus involves both main pulmonary arteries, saddle embolus with extension into upper and lower lobe bilateral branches. Pertinent positive or negative findings of the imaging study reported as a CRITICAL RESULT to the patient's nurse at18:49 on 08/23/2017. She is notifying the patient's clinician. Assessment & Plan - Diagnosis (1) Left femoral shaft fracture Qualifiers: Encounter type: subsequent encounter Fracture type: closed Fracture morphology: spiral Fracture alignment: displaced Is this a current diagnosis for this admission?: Yes (2) Closed fracture of glenoid cavity of left scapula Qualifiers: Encounter type: initial encounter Fracture alignment: displaced Qualified Code(s): S42.142A - Displaced fracture of glenoid cavity of scapula, left shoulder, initial encounter for closed fracture Is this a current diagnosis for this admission?: Yes (3) Type 2 diabetes mellitus Qualifiers: Diabetes mellitus complication status: without complication Is this a current diagnosis for this admission?: Yes (4) Hypertension Qualifiers: Hypertension type: essential hypertension Qualified Code(s): I10 - Essential (primary) hypertension Is this a current diagnosis for this admission?: Yes (5) Preoperative cardiovascular examination Is this a current diagnosis for this admission?: Yes (6) Bilateral pulmonary embolism Is this a current diagnosis for this admission?: Yes
[2017-08-31] MEDS: OXYCODONE HCL IR 5 MG TABLET PO PRN (17:57)
[2017-08-31] MEDS: ACETAMINOPHEN 325 MG TABLET PO PRN (20:03)
[2017-08-31] MEDS: ATORVASTATIN CALCIUM 40 MG TABLET PO SCH (21:40)
[2017-08-31] MEDS: INSULIN GLARGINE,HUM.REC.ANLOG 300 UNIT/3 ML INSULN.PEN SUBCUT SCH (21:40)
[2017-08-31] MEDS: INSULIN LISPRO 100 UNIT/ML 3 ML VIAL SUBCUT PRN (21:46)
[2017-09-01] MEDS: OXYCODONE HCL IR 5 MG TABLET PO PRN ×2 (00:32→06:34)
[2017-09-01] MEDS: LANSOPRAZOLE 30 MG TAB.RAP.DR PO SCH (05:09)
--- NOTE | 2017-09-01 06:35 | PDOC PROGRESS REPORT ---
Subjective Progress Note for:: 09/01/17 Reason For Visit: POSSIBLE PE 62-year-old white male now postop day 17 from an open reduction internal fixation of a left subtrochanteric femur fracture and nonoperative therapy for left glenoid fracture. Postoperative course has been complicated by pulmonary embolism. Patient's made limited progress with physical therapy. Physical Exam Vital Signs: Temp Pulse Resp BP Pulse Ox 36.5 C 78 20 148/73 H 92 09/01/17 03:36 09/01/17 03:36 09/01/17 03:36 09/01/17 03:36 09/01/17 03:36 Intake & Output 08/30/17 08/31/17 09/01/17 06:59 06:59 06:59 Intake Total 756 1428 1218 Output Total 1125 2050 1025 Balance -369 -622 193 Weight 108.7 kg 106.5 kg General appearance: PRESENT: no acute distress Head exam: PRESENT: normocephalic Extremities exam: PRESENT: other - Left thigh dressing is removed. Skin is well approximated without erythema or drainage. [place] in place. Neurological exam: PRESENT: alert, awake, oriented to person, oriented to place , oriented to time, oriented to situation. ABSENT: motor sensory deficit Psychiatric exam: PRESENT: flat affect Skin exam: PRESENT: dry, intact, warm. ABSENT: cyanosis, rash Results Laboratory Results: 08/27/17 05:53 08/27/17 05:53 Impressions: Chest X-Ray 08/11/17 02:07 IMPRESSION: Mild cardiomegaly. Mild bibasilar atelectasis. Small left pleural effusion. Shoulder X-Ray 08/11/17 02:07 IMPRESSION: Mildly displaced intra-articular fracture at the left glenoid. Femur X-Ray 08/11/17 02:55 IMPRESSION: Displaced, spiral fracture at the proximal left femur extending through the lesser trochanter. Fluoroscopy 08/13/17 00:00 IMPRESSION: Please see combined report for performance of procedure and radiologic supervision and interpretation. Hip X-Ray 08/13/17 00:00 IMPRESSION: IMAGE(S) OBTAINED DURING PROCEDURE. Chest/Abdomen CTA 08/23/17 00:00 IMPRESSION: 1. Positive for bilateral pulmonary embolus. Embolus involves both main pulmonary arteries, saddle embolus with extension into upper and lower lobe bilateral branches. Pertinent positive or negative findings of the imaging study reported as a CRITICAL RESULT to the patient's nurse at18:49 on 08/23/2017. She is notifying the patient's clinician. Status: Imported from PACS Assessment & Plan - Diagnosis (1) Cardiomegaly Is this a current diagnosis for this admission?: Yes Plan: Stable (2) Closed fracture of glenoid cavity of left scapula Qualifiers: Encounter type: initial encounter Fracture alignment: displaced Qualified Code(s): S42.142A - Displaced fracture of glenoid cavity of scapula, left shoulder, initial encounter for closed fracture Is this a current diagnosis for this admission?: Yes (3) Left femoral shaft fracture Qualifiers: Encounter type: subsequent encounter Fracture type: closed Fracture morphology: spiral Fracture alignment: displaced Is this a current diagnosis for this admission?: Yes Plan: Wound healing uneventfully. Limited progress with physical therapy. (4) Postoperative anemia due to acute blood loss Is this a current diagnosis for this admission?: Yes Plan: Stable hematocrit 28% (5) Bilateral pulmonary embolism Is this a current diagnosis for this admission?: Yes Plan: Patient receiving Xarelto twice daily - Time Time Spent with patient: 15-24 minutes Anticipated discharge: SNF Within: when bed available
[2017-09-01] MEDS: DOCUSATE SODIUM 100 MG CAPSULE PO SCH ×2 (09:23→18:20)
[2017-09-01] MEDS: ASPIRIN 81 MG TABLET, ENT COATED PO SCH (09:23)
[2017-09-01] MEDS: ARIPIPRAZOLE 5 MG TABLET PO SCH (09:24)
[2017-09-01] MEDS: GLIPIZIDE 5 MG TABLET PO SCH ×2 (09:25→18:20)
[2017-09-01] MEDS: PIOGLITAZONE HCL 15 MG TABLET PO SCH (09:25)
[2017-09-01] MEDS: AZITHROMYCIN 250 MG TABLET PO SCH (09:25)
[2017-09-01] MEDS: BUPROPION HCL 75 MG TABLET PO SCH ×2 (09:25→21:40)
[2017-09-01] MEDS: RIVAROXABAN 15 MG TABLET PO SCH ×2 (09:26→18:20)
--- NOTE | 2017-09-01 20:58 | PDOC TRANSFER SUMMARY ---
General - Admit/Disc Date/PCP Admission Date/Primary Care Provider: 08/23/17 20:11 PEMA ARMSTRONG MD Discharge Date: 09/02/17 - Discharge Diagnosis (1) Left femoral shaft fracture Is this a current diagnosis for this admission?: Yes (2) Closed fracture of glenoid cavity of left scapula Is this a current diagnosis for this admission?: Yes (3) Type 2 diabetes mellitus Is this a current diagnosis for this admission?: Yes (4) Hypertension Is this a current diagnosis for this admission?: Yes (5) Preoperative cardiovascular examination Is this a current diagnosis for this admission?: Yes (6) Bilateral pulmonary embolism Is this a current diagnosis for this admission?: Yes - Additional Information Resuscitation Status: Full Code Discharge Diet: As Tolerated, Regular Discharge Activity: No Driving, No tub bath, Walk Frequently Home Medications: Acetaminophen [Tylenol 325 mg Tablet] 650 mg PO Q4HP PRN 08/11/17 Alprazolam [Xanax 0.5 mg Tablet] 0.5 mg PO Q8HP PRN 08/11/17 Aripiprazole [Abilify 5 mg Tablet] 5 mg PO DAILY 08/11/17 Atorvastatin Calcium [Lipitor 40 mg Tablet] 40 mg PO DAILY 08/11/17 Bupropion HCl [Bupropion Xl] 150 mg PO DAILY 08/11/17 Calcium Carbonate [Tums Chewable 500 mg Tab.chew] 1,000 mg PO Q1HP PRN 08/11/17 Chlorpheniramine Maleate [Chlor-Trimeton 4 mg Tablet] 4 mg PO Q6HP PRN 08/11/17 Glipizide [Glucotrol 5 mg Tablet] 5 mg PO BID 08/11/17 Guaifenesin/Dextromethorphan [Tussin Dm Liquid] 10 ml PO Q4HP PRN 08/11/17 Insulin Glargine,Hum.rec.anlog [Lantus Solostar] 15 unit SQ QHS 08/11/17 Lisinopril [Prinivil 40 mg Tablet] 40 mg PO DAILY 08/11/17 Metformin HCl [Glucophage] 1,000 mg PO BID 08/11/17 Pioglitazone HCl [Actos 15 mg Tablet] 15 mg PO BID 08/11/17 Trazodone HCl [Desyrel] 100 mg PO HSP PRN 08/11/17 History of Present Illness Admission Date/PCP: 08/23/17 20:11 PEMA ARMSTRONG MD History of Present Illness: Patient is a 62-year-old male resident of assisted living facility at [facility] he said that the floor was wet, he slipped on the wet floor and sustained fracture of the left shoulder on the left femur. There was no antecedent chest pain, shortness of breath syncope or loss of consciousness. Based on the revised cardiac risk index score, he has no CVA, he has no coronary artery disease, he has no CHF, he has no diabetes mellitus requiring insulin, he has no chronic kidney disease with serum creatinine more than 2, this suggests that the risk of cardiovascular event in the perioperative is low, Patient can proceed to surgery Hospital Course Hospital Course: Patient was admitted for the management of left femoral shaft fracture and left shoulder fracture, he underwent open reduction and internal fixation of the left femoral fracture. Patient continues to refuse physical therapy during the course of hospital stay, hospital stay was complicated with bilateral pulmonary embolism. He was treated initially with intravenous atropine infusion and ultimately transitioned to p.o. Xarelto 15mg PO BID this was started on 2017 to finish 09/24/2017 after which we continue Xarelto 20 mg p.o. daily for 9 months he was initially treated empirically with IV antibiotic when it was felt that he had pneumonia but this was rule out. Physical Exam Vital Signs: Temp Pulse Resp BP Pulse Ox 97.3 F 78 20 146/73 H 92 09/01/17 20:00 09/01/17 20:00 09/01/17 20:00 09/01/17 20:00 09/01/17 20:00 Intake & Output 08/31/17 09/01/17 09/02/17 06:59 06:59 06:59 Intake Total 1428 1336 350 Output Total 5670 5694 750 Balance -622 -489 -400 Weight 106.5 kg 105.4 kg General appearance: PRESENT: no acute distress, well-developed, well-nourished Head exam: PRESENT: atraumatic, normocephalic Eye exam: PRESENT: conjunctiva pink, EOMI, PERRLA Ear exam: PRESENT: normal external ear exam Mouth exam: PRESENT: moist, tongue midline Respiratory exam: PRESENT: clear to auscultation evan Cardiovascular exam: PRESENT: RRR, +S1, +S2 Pulses: PRESENT: normal dorsalis pedis pul Vascular exam: PRESENT: normal capillary refill GI/Abdominal exam: PRESENT: normal bowel sounds, soft Rectal exam: PRESENT: deferred Extremities exam: PRESENT: full ROM Neurological exam: PRESENT: alert, awake, oriented to person, oriented to place , oriented to time, oriented to situation, CN II-XII grossly intact Psychiatric exam: PRESENT: appropriate affect, normal mood Skin exam: PRESENT: dry, intact, warm Results Laboratory Results: 08/27/17 05:53 08/27/17 05:53 Impressions: Chest X-Ray 08/11/17 02:07 IMPRESSION: Mild cardiomegaly. Mild bibasilar atelectasis. Small left pleural effusion. Shoulder X-Ray 08/11/17 02:07 IMPRESSION: Mildly displaced intra-articular fracture at the left glenoid. Femur X-Ray 08/11/17 02:55 IMPRESSION: Displaced, spiral fracture at the proximal left femur extending through the lesser trochanter. Fluoroscopy 08/13/17 00:00 IMPRESSION: Please see combined report for performance of procedure and radiologic supervision and interpretation. Hip X-Ray 08/13/17 00:00 IMPRESSION: IMAGE(S) OBTAINED DURING PROCEDURE. Chest/Abdomen CTA 08/23/17 00:00 IMPRESSION: 1. Positive for bilateral pulmonary embolus. Embolus involves both main pulmonary arteries, saddle embolus with extension into upper and lower lobe bilateral branches. Pertinent positive or negative findings of the imaging study reported as a CRITICAL RESULT to the patient's nurse at18:49 on 08/23/2017. She is notifying the patient's clinician. Qualifiers - * PATEINT BEING DISCHARGED WITH ANY OF THE FOLLOWING DIAGNOSIS?: VTE (PE or DVT) VTE patient discharged on overlapping Therapy?: Yes Plan Discharge Plan: Patient to stop Xarelto 15 mg p.o. twice daily on 09/24/2017 then start Xarelto 20 mg p.o. daily for 9 months
--- NOTE | 2017-09-01 20:59 | PDOC PROGRESS REPORT ---
Subjective Progress Note for:: 09/01/17 Subjective:: Patient seen by the bedside no new complaint, he now has a bed in the alf for transfer in the morning Reason For Visit: POSSIBLE PE Physical Exam Vital Signs: Temp Pulse Resp BP Pulse Ox 97.3 F 78 20 146/73 H 92 09/01/17 20:00 09/01/17 20:00 09/01/17 20:00 09/01/17 20:00 09/01/17 20:00 Intake & Output 08/31/17 09/01/17 09/02/17 06:59 06:59 06:59 Intake Total 1428 1336 350 Output Total 2050 1875 750 Balance -162 -489 -400 Weight 106.5 kg 105.4 kg General appearance: PRESENT: no acute distress, well-developed, well-nourished Head exam: PRESENT: atraumatic, normocephalic Eye exam: PRESENT: conjunctiva pink, EOMI, PERRLA. ABSENT: scleral icterus Ear exam: PRESENT: normal external ear exam Mouth exam: PRESENT: moist, tongue midline Neck exam: PRESENT: full ROM Respiratory exam: PRESENT: clear to auscultation evan Cardiovascular exam: PRESENT: RRR, +S1, +S2 Pulses: PRESENT: normal dorsalis pedis pul, +2 pedal pulses bilateral Vascular exam: PRESENT: normal capillary refill GI/Abdominal exam: PRESENT: normal bowel sounds, soft Rectal exam: PRESENT: deferred Neurological exam: PRESENT: alert, awake, oriented to person, oriented to place , oriented to time, oriented to situation, CN II-XII grossly intact Psychiatric exam: PRESENT: appropriate affect, normal mood Skin exam: PRESENT: dry, intact, warm Results Laboratory Results: 08/27/17 05:53 08/27/17 05:53 Impressions: Chest X-Ray 08/11/17 02:07 IMPRESSION: Mild cardiomegaly. Mild bibasilar atelectasis. Small left pleural effusion. Shoulder X-Ray 08/11/17 02:07 IMPRESSION: Mildly displaced intra-articular fracture at the left glenoid. Femur X-Ray 08/11/17 02:55 IMPRESSION: Displaced, spiral fracture at the proximal left femur extending through the lesser trochanter. Fluoroscopy 08/13/17 00:00 IMPRESSION: Please see combined report for performance of procedure and radiologic supervision and interpretation. Hip X-Ray 08/13/17 00:00 IMPRESSION: IMAGE(S) OBTAINED DURING PROCEDURE. Chest/Abdomen CTA 08/23/17 00:00 IMPRESSION: 1. Positive for bilateral pulmonary embolus. Embolus involves both main pulmonary arteries, saddle embolus with extension into upper and lower lobe bilateral branches. Pertinent positive or negative findings of the imaging study reported as a CRITICAL RESULT to the patient's nurse at18:49 on 08/23/2017. She is notifying the patient's clinician. Assessment & Plan - Diagnosis (1) Left femoral shaft fracture Qualifiers: Encounter type: subsequent encounter Fracture type: closed Fracture morphology: spiral Fracture alignment: displaced Is this a current diagnosis for this admission?: Yes (2) Closed fracture of glenoid cavity of left scapula Qualifiers: Encounter type: initial encounter Fracture alignment: displaced Qualified Code(s): S42.142A - Displaced fracture of glenoid cavity of scapula, left shoulder, initial encounter for closed fracture Is this a current diagnosis for this admission?: Yes (3) Type 2 diabetes mellitus Qualifiers: Diabetes mellitus complication status: without complication Is this a current diagnosis for this admission?: Yes (4) Hypertension Qualifiers: Hypertension type: essential hypertension Qualified Code(s): I10 - Essential (primary) hypertension Is this a current diagnosis for this admission?: Yes (5) Preoperative cardiovascular examination Is this a current diagnosis for this admission?: Yes (6) Bilateral pulmonary embolism Is this a current diagnosis for this admission?: Yes
[2017-09-01] MEDS: INSULIN GLARGINE,HUM.REC.ANLOG 300 UNIT/3 ML INSULN.PEN SUBCUT SCH (21:40)
[2017-09-01] MEDS: ATORVASTATIN CALCIUM 40 MG TABLET PO SCH (21:40)
[2017-09-02] MEDS: OXYCODONE HCL IR 5 MG TABLET PO PRN ×2 (00:01→10:19)
[2017-09-02] MEDS: TRAZODONE HCL 50 MG TABLET PO PRN (00:01)
[2017-09-02 04:43] VITALS: BP 130/67
[2017-09-02] MEDS: LANSOPRAZOLE 30 MG TAB.RAP.DR PO SCH (05:34)
--- NOTE | 2017-09-02 07:09 | PDOC PROGRESS REPORT ---
Subjective Progress Note for:: 09/02/17 Subjective:: 8-year-old white male status post open reduction internal fixation left femur fracture as well as development of bilateral pulmonary embolism. Patient resting quietly in hospital bed this morning aroused by name calling and questions asked. He answers appropriately and notes that he is pleased to be discharged today to a detention facility. Reason For Visit: POSSIBLE PE Physical Exam Vital Signs: Temp Pulse Resp BP Pulse Ox 36.7 C 68 18 130/67 H 93 09/02/17 04:06 09/02/17 04:06 09/02/17 04:06 09/02/17 04:06 09/02/17 04:06 Intake & Output 09/01/17 09/02/17 09/03/17 06:59 06:59 06:59 Intake Total 1336 1000 Output Total 1825 1950 Balance -489 -950 Weight 105.4 kg 104.7 kg General appearance: PRESENT: no acute distress, well-developed, well-nourished Head exam: PRESENT: atraumatic, normocephalic Respiratory exam: PRESENT: unlabored Pulses: PRESENT: normal dorsalis pedis pul, +2 pedal pulses bilateral Vascular exam: PRESENT: normal capillary refill Additional comments: Patient lying recumbent in hospital bed with bilateral lower extremities in full extension. There is minimal pedal edema and brisk capillary refill to toes on bilateral lower extremities. His OpSite dressing was removed yesterday and l[place] are intact with wound margins healing appropriately. There is no evidence of erythema, ecchymosis or purulent drainage. He is nontender to palpation. Larynx equal and distal neurovascular exam intact. Musculoskeletal exam: PRESENT: ambulatory Additional comments: Patient has initiated work with physical therapy again however makes slow progress. This is however improvement as he was previously refusing treatment. He only stood and ambulated maximum of 4 steps yesterday. He will continue to work with physical therapy at the detention facility to improve strength range of motion and work towards further ambulation of left lower extremity. Neurological exam: PRESENT: alert, awake, oriented to person, oriented to place , oriented to time, oriented to situation, CN II-XII grossly intact. ABSENT: motor sensory deficit Psychiatric exam: PRESENT: appropriate affect, normal mood. ABSENT: homicidal ideation, suicidal ideation Skin exam: PRESENT: dry, intact, warm. ABSENT: cyanosis, rash Results Laboratory Results: 08/27/17 05:53 08/27/17 05:53 Impressions: Chest X-Ray 08/11/17 02:07 IMPRESSION: Mild cardiomegaly. Mild bibasilar atelectasis. Small left pleural effusion. Shoulder X-Ray 08/11/17 02:07 IMPRESSION: Mildly displaced intra-articular fracture at the left glenoid. Femur X-Ray 08/11/17 02:55 IMPRESSION: Displaced, spiral fracture at the proximal left femur extending through the lesser trochanter. Fluoroscopy 08/13/17 00:00 IMPRESSION: Please see combined report for performance of procedure and radiologic supervision and interpretation. Hip X-Ray 08/13/17 00:00 IMPRESSION: IMAGE(S) OBTAINED DURING PROCEDURE. Chest/Abdomen CTA 08/23/17 00:00 IMPRESSION: 1. Positive for bilateral pulmonary embolus. Embolus involves both main pulmonary arteries, saddle embolus with extension into upper and lower lobe bilateral branches. Pertinent positive or negative findings of the imaging study reported as a CRITICAL RESULT to the patient's nurse at18:49 on 08/23/2017. She is notifying the patient's clinician. Assessment & Plan - Diagnosis (1) Left femoral shaft fracture Qualifiers: Encounter type: subsequent encounter Fracture type: closed Fracture morphology: spiral Fracture alignment: displaced Is this a current diagnosis for this admission?: Yes - Plan Summary Plan Summary: 62-year-old white male status post open reduction internal fixation left femur fracture as well as development of bilateral pulmonary emboli. Patient has restarted work with physical therapy ambulating very little however this is progress as he previously refused treatment. He will continue to work with physical therapy at his detention facility upon discharge. His operative site does not have a dressing and can be left open. [place] are intact and wound appears to be healing appropriately. According to attending physician he will be discharged today to detention facility. Orthopedics is in agreement with this plan and he will follow-up with [facility] for surgery and Dr. Prince in 1-2 weeks for postoperative evaluation and staple removal.
[2017-09-02] MEDS: INSULIN LISPRO 100 UNIT/ML 3 ML VIAL SUBCUT PRN ×2 (08:37→12:50)
[2017-09-02] MEDS: GLIPIZIDE 5 MG TABLET PO SCH (08:37)
[2017-09-02] MEDS: RIVAROXABAN 15 MG TABLET PO SCH (08:37)
[2017-09-02] MEDS: ARIPIPRAZOLE 5 MG TABLET PO SCH (10:17)
[2017-09-02] MEDS: BUPROPION HCL 75 MG TABLET PO SCH (10:17)
[2017-09-02] MEDS: ASPIRIN 81 MG TABLET, ENT COATED PO SCH (10:17)
[2017-09-02] MEDS: PIOGLITAZONE HCL 15 MG TABLET PO SCH (10:17)
[2017-09-02] MEDS: DOCUSATE SODIUM 100 MG CAPSULE PO SCH (10:18)
== END 2017-09-02 14:31 | DRG 480 ==
LOC: ER 01:53 → EH 04:16 → UNDOADMIN 04:16 → EH 04:27 → UNDOADMIN 04:27 → 4S 14:40 → EH 14:40 → 3W 08-23 20:05 → 4S 08-23 20:05 → 3W 08-23 20:11 → UNDOADMIN 08-23 20:11 → 4S 08-23 20:11 → EH 08-23 20:11 → 3W 08-25 04:01 → 3S 08-25 04:01 → 4W 08-31 18:47 → UNDODISIN 09-02 14:31
PROVIDERS: ADMIT Family Medicine; ATTEND Internal Medicine
PROC: 0QS706Z Reposition Left Upper Femur with Intramedullary Internal Fixation Device, Open Approach (ICD-10-PCS; principal; 2017-08-13 11:45)
PROC: 30233N1 Transfusion of Nonautologous Red Blood Cells into Peripheral Vein, Percutaneous Approach (ICD-10-PCS; 2017-08-15)
DX: S72.22XA Displaced subtrochanteric fracture of left femur, initial encounter for closed fracture (principal); I26.99 Other pulmonary embolism without acute cor pulmonale; Z68.41 Body mass index [BMI] 40.0-44.9, adult; D62 Acute posthemorrhagic anemia; I10 Essential (primary) hypertension; S42.142A Displaced fracture of glenoid cavity of scapula, left shoulder, initial encounter for closed fracture; I51.7 Cardiomegaly; W18.39XA Other fall on same level, initial encounter; E66.9 Obesity, unspecified; Y93.9 Activity, unspecified; Y92.128 Other place in nursing home as the place of occurrence of the external cause; E11.9 Type 2 diabetes mellitus without complications; F31.9 Bipolar disorder, unspecified; F17.200 Nicotine dependence, unspecified, uncomplicated; Z82.49 Family history of ischemic heart disease and other diseases of the circulatory system; Z79.899 Other long term (current) drug therapy; Z79.84 Long term (current) use of oral hypoglycemic drugs; Z88.8 Allergy status to other drugs, medicaments and biological substances; Z79.02 Long term (current) use of antithrombotics/antiplatelets
CPT/HCPCS: 01230; 36415; 36430; 36600; 71045; 71275; 80048; 80053; 81001; 82272; 82565; 82803; 82962; 85025; 85027; 85610; 85730; 86850; 86900; 86901; 86920; 87040; 87086; 93005; 93010; 93306; 94660; 99285; G8978-GP; G8979-GP; J0456; J0690; J0696; J1100; J1170; J1644; J1815; J2250; J2370; J2405; J2704; J2765; J3010; J3370; J3490; J7030; J7060; J7120; P9016; S0028; S0119